=== PATIENT | female | born 1950 | race Caucasian/White ===

== ENCOUNTER 2017-02-06 09:10 | Emergency (ER) | payer OTHER ==
--- NOTE | 2017-02-06 09:47 | ER Document Report ---
ED Respiratory Problem - General Chief Complaint: Breathing Difficulty Stated Complaint: DIFFICULTY BREATHING Time Seen by Provider: 02/06/17 09:28 Notes: The patient is a 66-year-old female, past medical history COPD, CAD status post 3 vessel bypass 4 weeks ago at [facility], [facility], presents with 2 weeks of increasing shortness of breath and cough. She said that she was having the shortness of breath upon discharge from [facility]. She saw her warp hauler, Dr. Langston, and was started on Lasix without much relief of her peripheral edema. She is using her albuterol every 4 hours. In addition, patient noticed swelling of her right neck since last night. She denies fevers, hemoptysis, chest pain, back pain, nausea, vomiting, abdominal pain, difficulty swallowing, dental injury or pain or stridor. TRAVEL OUTSIDE OF THE [place] IN LAST 30 DAYS: No - Related Data Allergies/Adverse Reactions: codeine Adverse Reaction (Verified 02/06/17 09:21) Home Medications: Current Home Medications Aspirin [Aspirin EC] 81 mg PO DAILY 02/06/17 [History] Atorvastatin Calcium [Lipitor 80 mg Tablet] 80 mg PO QHS 02/06/17 [History] Carvedilol 6.25 mg PO BID 02/06/17 [History] Ferrous Sulfate [Feosol 325 mg Tablet] 325 mg PO DAILY 02/06/17 [History] Folic Acid 0.8 mg PO DAILY 02/06/17 [History] Ipratropium/Albuterol Sulfate [Iprat-Albut 0.5-3(2.5) Mg/3 Ml] 3 ml IH PRN PRN 02/06/17 [History] Ondansetron [Ondansetron Odt] 4 mg PO Q8H PRN 02/06/17 [History] Past Medical History - General Information source: Patient - Social History Smoking Status: Unknown if Ever Smoked Family History: Reviewed & Not Pertinent - Past Medical History Cardiac Medical History: Reports: Hx Hypercholesterolemia, Hx Hypertension Pulmonary Medical History: Reports: Hx COPD Past Surgical History: Reports: Hx Cardiac Catheterization - Immunizations Hx Diphtheria, Pertussis, Tetanus Vaccination: No Review of Systems - Review of Systems Notes: REVIEW OF SYSTEMS: CONSTITUTIONAL: -fevers, -chills EENT: -eye pain, -difficulty swallowing, -nasal congestion CARDIOVASCULAR:-chest pain, -syncope. RESPIRATORY: +cough, +SOB GASTROINTESTINAL: -abdominal pain, - nausea, -vomiting, -diarrhea GENITOURINARY: -dysuria, -hematuria MUSCULOSKELETAL: -back pain, +right neck pain SKIN: -rash or skin lesions. HEMATOLOGIC: -easy bruising or bleeding. LYMPHATIC: -swollen, enlarged glands. NEUROLOGICAL: -altered mental status or loss of consciousness, -headache, - neurologic symptoms PSYCHIATRIC: -anxiety, -depression. ALL OTHER SYSTEMS REVIEWED AND NEGATIVE. Physical Exam - Vital signs Vitals: Temp Pulse Resp BP Pulse Ox 97.9 F 88 22 H 152/110 H 98 02/06/17 09:17 02/06/17 09:17 02/06/17 09:17 02/06/17 09:17 02/06/17 09:17 - Notes Notes: PHYSICAL EXAMINATION: GENERAL: Well-appearing, well-nourished and in no acute distress. HEAD: Atraumatic, normocephalic. EYES: Pupils equal round and reactive to light, extraocular movements intact, sclera anicteric, conjunctiva are normal. ENT: nares patent, oropharynx clear without exudates. Moist mucous membranes. NECK: Normal range of motion, supple without lymphadenopathy LUNGS: Pursed lip breathing. Diffuse wheezing. HEART: Regular rate and rhythm without murmurs. ABDOMEN: Soft, nontender, normoactive bowel sounds. No guarding, no rebound. No masses appreciated. EXTREMITIES: Normal range of motion. 1+ pitting edema. No cyanosis. NEUROLOGICAL: Cranial nerves grossly intact. Normal speech, normal gait. Normal sensory and motor exams. PSYCH: Normal mood, normal affect. SKIN: Well-healed mid-sternal surgical scar. Course - Re-evaluation Re-evalutation: Patient with hyperkalemia and acute renal failure. Her creatinine last week was 4 and it is 12.95 today. She is not on dialysis. Her potassium is 6.6. EKG shows paced rhythm, but the patient is throwing intermittent ectopic beats on the monitor. She began to have some nausea and vomiting and Zofran was provided to patient. Provided patient with hyperkalemic treatment. Patient provided with Solu-Medrol and duo nebs with improvement of her wheezing. Ultrasound ordered for evaluation of her acute right neck mass. Patient is protecting her airway and there is no airway compromise. Patient requires inpatient admission for further evaluation and treatment. 02/06/17 11:18 No nephrology coverage at [facility] until 2018. [facility] because she has an appointment with Urology next month. 02/06/17 11:24 [facility] Spoke to transfer center at [facility] since patient had her CABG 1 month ago and awaiting callback. 02/06/17 11:56 Spoke to [facility] and Dr. Vinson has accepted patient ER to ER. Recommends [facility]. Arranging transportation now. 02/06/17 14:49 Transport in ED and patient reevaluated. Her nausea has resolved. At this time, patient stable for transport. - Vital Signs Vital signs: Temp Pulse Resp BP Pulse Ox 97.9 F 88 19 108/93 H 99 02/06/17 09:17 02/06/17 09:17 02/06/17 14:01 02/06/17 14:01 02/06/17 14:01 - Laboratory Result Diagrams: 02/06/17 09:50 02/06/17 09:50 Laboratory results interpreted by me: 02/06/17 02/06/17 02/06/17 09:50 09:50 09:50 RBC 3.24 L Hgb 9.6 L Hct 28.6 L RDW 14.3 H Seg Neutrophils % 79.4 H Lymphocytes % 11.1 L Absolute Neutrophils 8.3 H VBG pH VBG pCO2 VBG HCO3 Potassium 6.6 H* Chloride 108 H Carbon Dioxide 14 L BUN 99 H Creatinine 12.95 H Est GFR ( Amer) 4 L Est GFR (Non-Af Amer) 3 L Alkaline Phosphatase 158 H NT-Pro-B Natriuret Pep 8730 H 02/06/17 10:35 RBC Hgb Hct RDW Seg Neutrophils % Lymphocytes % Absolute Neutrophils VBG pH 7.29 L VBG pCO2 33.6 L VBG HCO3 15.8 L Potassium Chloride Carbon Dioxide BUN Creatinine Est GFR ( Amer) Est GFR (Non-Af Amer) Alkaline Phosphatase NT-Pro-B Natriuret Pep - Diagnostic Test Radiology reviewed: Image reviewed, Reports reviewed - EKG Interpretation by Me Rate: Normal Rhythm: Other - AV-dual paced Critical Care Note - Critical Care Note Total time excluding time spent on procedures (mins): 55 Discharge - Discharge Clinical Impression: Hyperkalemia, JAMES (acute kidney injury), COPD exacerbation, Neck mass Nausea and vomiting Qualifiers: Vomiting type: unspecified Vomiting Intractability: non-intractable Qualified Code(s): R11.2 - Nausea with vomiting, unspecified Condition: Serious Disposition: [place]
[2017-02-06 10:07] LABS: ABSOLUTE BASOPHILS # (AUTO) 0.1 10^3/uL (0.0-0.2); ABSOLUTE EOSINOPHILS # (AUTO) 0.4 10^3/uL (0.0-0.6); ABSOLUTE LYMPHOCYTES (AUTO) 1.2 10^3/uL (0.5-4.7); ABSOLUTE MONOCYTES (AUTO) 0.5 10^3/uL (0.1-1.4); ABSOLUTE NEUT (AUTO) 8.3 10^3/uL (1.7-8.2); BASOPHILS % (AUTO) 0.7 % (0-2); EOSINOPHILS % (AUTO) 3.7 % (0-6); HEMATOCRIT 28.6 % (36.0-47.0); HEMOGLOBIN 9.6 g/dL (12.0-15.5); HGB HCT DIFFERENCE 0.2; LYMPHOCYTES % (AUTO) 11.1 % (13-45); MEAN CORPUSCULAR HEMOGLOBIN 29.6 pg (27.0-33.4); MEAN CORPUSCULAR HGB CONC 33.5 g/dL (32.0-36.0); MEAN CORPUSCULAR VOLUME 88 fl (80-97); MONOCYTES % (AUTO) 5.1 % (3-13); RED BLOOD COUNT 3.24 10^6/uL (3.72-5.28); RED CELL DISTRIBUTION WIDTH 14.3 % (11.5-14.0); SEGMENTED NEUTROPHILS % (AUTO) 79.4 % (42-78); WHITE BLOOD COUNT 10.5 10^3/uL (4.0-10.5)
[2017-02-06] MEDS ORDERED: METHYLPREDNISOLONE INJ 125 MG/2 ML SDV IV ONE (10:08)
[2017-02-06] MEDS ORDERED: IPRATROPIUM/ALBUTEROL 0.5-2.5 MG/3 ML AMPUL NEB ONE (10:08)
--- NOTE | 2017-02-06 10:26 | RADIOLOGY REPORT (SQ) ---
EXAM DESCRIPTION: CHEST SINGLE VIEW COMPLETED DATE/TIME: 02/06/2017 10:16 am REASON FOR STUDY: SOB COMPARISON: 2015. NUMBER OF VIEWS: One view. TECHNIQUE: Single frontal radiographic view of the chest acquired. LIMITATIONS: None. FINDINGS: LUNGS AND PLEURA: Blunting left lateral costophrenic angle suggests a small effusion. The lungs otherwise look relatively clear, however. MEDIASTINUM AND HILAR STRUCTURES: Stable postoperative contours. Uncoiled mildly ectatic aorta. HEART AND VASCULAR STRUCTURES: Stable heart size. Enlarged without overt failure otherwise. BONES: No acute findings. HARDWARE: Left transvenous pacer. Grossly intact sternal wires. OTHER: No other significant finding. IMPRESSION: Cardiac enlargement. Trace left pleural fluid may be present. Otherwise clear lungs wi th stable appearance of the chest. TECHNICAL DOCUMENTATION: JOB ID: [id number] [employer]- All Rights Reserved
[2017-02-06 10:29] LABS: ALANINE AMINOTRANSFERASE 45 U/L (9-52); ALBUMIN 3.7 g/dL (3.5-5.0); ALKALINE PHOSPHATASE 158 U/L (38-126); ASPARTATE AMINO TRANSFERASE 19 U/L (14-36); BILIRUBIN,DIRECT 0.3 mg/dL (0.0-0.4); BILIRUBIN,TOTAL 0.3 mg/dL (0.2-1.3); BLOOD UREA NITROGEN 99 mg/dL (7-20); CALCIUM 9.2 mg/dL (8.4-10.2); CREATINE KINASE 37 U/L (30-135); CREATININE RESULT 12.95 mg/dL (0.52-1.25); GLUCOSE 90 mg/dL (75-110); TOTAL PROTEIN 6.3 g/dL (6.3-8.2)
[2017-02-06 10:36] LABS: ANION GAP 19 (5-19); CARBON DIOXIDE 14 mmol/L (22-30); CHLORIDE 108 mmol/L (98-107); SODIUM 141.3 mmol/L (137-145)
[2017-02-06 10:39] LABS: TROPONIN I 0.02 ng/mL
[2017-02-06 10:42] LABS: POTASSIUM 6.6 mmol/L (3.6-5.0)
[2017-02-06] MEDS ORDERED: ONDANSETRON HCL INJ/PF 4 MG/2 ML SDV IV ONE (10:42)
[2017-02-06] MEDS ORDERED: CALCIUM GLUCONATE 1000 MG/10 ML INJ IV ONE (10:43)
[2017-02-06] MEDS ORDERED: ALBUTEROL SULFATE 0.083% NEB 2.5 MG/3 ML AMPUL NEB ONE (10:43)
[2017-02-06] MEDS ORDERED: FUROSEMIDE INJ/PF 40 MG/4 ML SDV IV ONE (10:43)
[2017-02-06] MEDS ORDERED: DEXTROSE 50%-WATER 25 GM/50 ML DISP.SYRIN IV ONE (10:44)
[2017-02-06] MEDS ORDERED: INSULIN REG, HUMAN 100 UNIT/ML 3 ML VIAL (PYX) IV ONE (10:44)
[2017-02-06 10:47] LABS: VENOUS BLOOD BASE EXCESS -9.9 mmol/L; VENOUS BLOOD HCO3 15.8 mmol/L (20-32); VENOUS BLOOD PCO2 33.6 mmHg (35-63); VENOUS BLOOD PH 7.29 (7.30-7.42)
[2017-02-06 11:28] LABS: ADD ON TESTING BLD IN LAB ACKNOWLEDGE
[2017-02-06 11:38] LABS: LIPASE 165.1 U/L (23-300)
[2017-02-06] MEDS ORDERED: SODIUM POLYSTYRENE SULFONATE 15 GM/60 ML PO ONE (11:48)
--- NOTE | 2017-02-06 13:05 | RADIOLOGY REPORT (SQ) ---
EXAM DESCRIPTION: U/S THYROID/SFT TISS HD NECK COMPLETED DATE/TIME: 02/06/2017 12:54 pm REASON FOR STUDY: right neck swelling, acute COMPARISON: None. TECHNIQUE: Dynamic and static calhoun-scale images acquired of the thyroid gland. Selected additional c olor/power Doppler images recorded. All images stored to PACS. LIMITATIONS: None. FINDINGS: RIGHT LOBE: Normal size, 3.6 cm. Homogeneous echotexture. There is a 6 mm cyst in the mi dportion of the right lobe. LEFT LOBE: Normal size, 3.6 cm. Homogeneous echotexture. No cystic or solid masses. ISTHMUS: Normal size, 3.7 mm Homogeneous echotexture. No cystic or solid masses. OTHER: There is a masslike area soft tissue swelling in the right side of the neck showing increased vascularity. This measures 4.1 x 4.1 x 1.8 cm. IMPRESSION: Normal thyroid. Nonspecific masslike area of soft tissue swelling the right side of the neck. It is possible this could represent adenopathy. It does not have an appearance suggestive of a hematoma. TECHNICAL DOCUMENTATION: JOB ID: [id number]- All Rights Reserved
--- NOTE | 2017-02-06 13:26 | EKG REPORT ---
SEVERITY:- ABNORMAL ECG - ATRIAL-VENTRICULAR DUAL-PACED COMPLEXES : Confirmed by: Jake Johnson MD 06-Feb-2017 13:25:31
[2017-02-06 14:36] VITALS: BP 108/93
== END 2017-02-06 15:01 | disposition short-term general hospital (02) ==
LOC: ER 09:10
DX: E87.5 Hyperkalemia (principal); J44.1 Chronic obstructive pulmonary disease with (acute) exacerbation; R22.1 Localized swelling, mass and lump, neck; N17.9 Acute kidney failure, unspecified; R11.2 Nausea with vomiting, unspecified; I25.10 Atherosclerotic heart disease of native coronary artery without angina pectoris; I10 Essential (primary) hypertension; E78.00 Pure hypercholesterolemia, unspecified; Z88.6 Allergy status to analgesic agent; Z95.1 Presence of aortocoronary bypass graft; Z79.82 Long term (current) use of aspirin
CPT/HCPCS: 93005; 94640 ×2; 99291; 96375; 96365; 36415; 82550; 83690; 85025; 80053; 84484; 82803; 83880; 71010; 76536; 93010; J0610; J3490; J1940; J2930; J1815; J2405; J7620

== ENCOUNTER → 2017-06-13 | Outpatient (CLI) | payer OTHER ==
--- NOTE | 2017-06-13 12:51 | RADIOLOGY REPORT (SQ) ---
EXAM DESCRIPTION: CT CHEST WITHOUT COMPLETED DATE/TIME: 06/13/2017 12:27 pm REASON FOR STUDY: BLADDER NECK CA C67.5 MALIGNANT NEOPLASM OF BLADDER NECK COMPARISON: CT 03/10/2016 TECHNIQUE: CT scan performed of the chest without intravenous contrast. Images reviewed with lung, soft tissue and bone windows. Reconstructed coronal and sagittal MPR images reviewed. All images st ored on PACS. All CT scanners at this facility use dose modulation, iterative reconstruction, and/or weight based d osing when appropriate to reduce radiation dose to as low as reasonably achievable (ALARA). [facility]: Dose Right [facility]: CareDose [facility]: Dose Right [facility]: Teradose 4D [facility]: [employer] RADIATION DOSE: mGy. LIMITATIONS: No technical limitations. FINDINGS: LUNGS AND PLEURA: There is a 3 mm nodule in the right lung on image 49. There is pleural/ parenchymal scarring in the posterior costophrenic sulci. HILAR AND MEDIASTINAL STRUCTURES: No identified masses or abnormal nodes. No obvious aneurysm. HEART AND VASCULAR STRUCTURES: No aneurysm. No pericardial effusion. Dense coronary atherosclerosis . Aortic atherosclerosis. UPPER ABDOMEN: See separate report of the CT of the abdomen. THYROID AND OTHER SOFT TISSUES: No masses. No adenopathy. BONES: Multiple sclerotic lesions are present in the vertebrae, ribs, scapulae HARDWARE: Pacemaker/defibrillator. Sternotomy wires. OTHER: No other significant findings. IMPRESSION: 1. Nonspecific small pulmonary nodule as described. 2. Extensive atherosclerosis. 3. Extensive osseous metastases. TECHNICAL DOCUMENTATION: JOB ID: [id number] Quality ID # [id number]: Final reports with documentation of one or more dose reduction techniques (e.g., Au tomated exposure control, adjustment of the mA and/or kV according to patient size, use of iterative reconstruction technique) 2010 [employer]- All Rights Reserved Reading location - IP/workstation name: [email or web address]
--- NOTE | 2017-06-13 13:02 | RADIOLOGY REPORT (SQ) ---
EXAM DESCRIPTION: CT ABD/PELVIS NO ORAL OR IV COMPLETED DATE/TIME: 06/13/2017 12:27 pm REASON FOR STUDY: BLADDER NECK CA C67.5 MALIGNANT NEOPLASM OF BLADDER NECK COMPARISON: None. TECHNIQUE: CT scan of the abdomen and pelvis performed without intravenous or oral contrast. Images reviewed with lung, soft tissue, and bone windows. Reconstructed coronal and sagittal MPR images revi ewed. All images stored on PACS. All CT scanners at this facility use dose modulation, iterative reconstruction, and/or weight based d osing when appropriate to reduce radiation dose to as low as reasonably achievable (ALARA). [facility]: Dose Right [facility]: CareDose [facility]: Dose Right [facility]: Teradose 4D [facility]: [employer] RADIATION DOSE: CT Rad equipment meets quality standard of care and radiation dose reduction techniq ues were employed. CTDIvol: 4.6 - 6.0 mGy. DLP: 457 mGy-cm.mGy. LIMITATIONS: None. FINDINGS: LOWER CHEST: See separate report of the CT of the chest. NON-CONTRASTED LIVER, SPLEEN, ADRENALS: Evaluation limited by lack of IV contrast. No identified sign ificant masses. PANCREAS: No masses. No peripancreatic inflammatory changes. GALLBLADDER: No identified stones by CT criteria. No inflammatory changes to suggest cholecystitis. RIGHT KIDNEY AND URETER: No suspicious masses. There is hydronephrosis/hydroureter. A ureteral sten t is present. There is perinephric stranding. LEFT KIDNEY AND URETER: No suspicious mass is present. There is moderate hydronephrosis. A stent is present. There is mild perinephric stranding. AORTA AND RETROPERITONEUM: No aneurysm. Atherosclerosis is present. BOWEL AND PERITONEAL CAVITY: Numerous descending and sigmoid colon diverticula are seen with no acute inflammatory changes. APPENDIX: Normal. PELVIS, BLADDER, AND ABDOMINAL WALL:Uterus is absent. Ureteral stents terminate in the nondistended bladder. There is bladder wall thickening. BONES: Numerous osseous metastases are present. OTHER: No other significant finding. IMPRESSION: 1. Bilateral hydronephrosis, worse on the right, with bilateral ureteral stents 2. There is significant thickening of the bladder wall. 3. Diverticulosis coli. 4. Extensive osseous metastases are present. COMMENT: Findings were discussed with Dr. Rose at 1256 hours on this date. Quality ID # [id number]: Final reports with documentation of one or more dose reduction techniques (e.g., Au tomated exposure control, adjustment of the mA and/or kV according to patient size, use of iterative reconstruction technique) TECHNICAL DOCUMENTATION: JOB ID: [id number] [employer]- All Rights Reserved Reading location - IP/workstation name: [email or web address]
== END ==
LOC: RAD 12:00
PROVIDERS: ATTEND Internal Medicine
DX: C67.5 Malignant neoplasm of bladder neck (principal); C79.51 Secondary malignant neoplasm of bone; K57.30 Diverticulosis of large intestine without perforation or abscess without bleeding; R91.1 Solitary pulmonary nodule
CPT/HCPCS: 71250; 74176

== ENCOUNTER 2017-06-19 11:19 | Day surgery (SDC) | payer OTHER ==
[~2017-06-19 11:19] MED LIST: ACETAMINOPHEN 325 MG TABLET PO PRN; CEFAZOLIN 1 GM/D5W RTU 1 GM/50 ML RTUPB IV PRN
[2017-06-19 12:28] LABS: HEMATOCRIT 28.5 % (36.0-47.0); HEMOGLOBIN 9.6 g/dL (12.0-15.5); MEAN CORPUSCULAR HGB CONC 33.7 g/dL (32.0-36.0); MEAN CORPUSCULAR VOLUME 83 fl (80-97); PLATELET COUNT 276 10^3/uL (150-450); RED BLOOD COUNT 3.43 10^6/uL (3.72-5.28); WHITE BLOOD COUNT 9.7 10^3/uL (4.0-10.5)
[2017-06-19] MEDS ORDERED: PROPOFOL INJ 200 MG/20 ML VIAL IV ONE (13:07)
[2017-06-19] MEDS ORDERED: MIDAZOLAM 2 MG/2 ML INJ ONE (13:07)
[2017-06-19] MEDS ORDERED: FENTANYL CITRATE INJ/PF 100 MCG/2 ML AMPUL ONE (13:07)
[2017-06-19] MEDS ORDERED: LIDOCAINE 1%/EPINEPHRINE INJ 20 ML VIAL ONE (13:11)
--- NOTE | 2017-06-19 13:31 | RADIOLOGY REPORT (SQ) ---
EXAM DESCRIPTION: CHEST SINGLE VIEW COMPLETED DATE/TIME: 06/19/2017 12:58 pm REASON FOR STUDY: PREOP COMPARISON: AP chest 02/06/2017 CT chest 06/13/2017 EXAM PARAMETERS: NUMBER OF VIEWS: One view. TECHNIQUE: Single frontal radiographic view of the chest acquired. RADIATION DOSE: NA LIMITATIONS: None. FINDINGS: LUNGS AND PLEURA: No opacities, masses or pneumothorax. No pleural effusion. MEDIASTINUM AND HILAR STRUCTURES: No masses. Contour normal. HEART AND VASCULAR STRUCTURES: Marked cardiomegaly, stable. Old sternotomy for CABG. BONES: Multiple sclerotic osseous lesions throughout the spine and ribs seen on CT 06/13/2017 are not w ell seen by plain film. HARDWARE: Left-sided pacemaker/defibrillator OTHER: No other significant finding. IMPRESSION: No acute infiltrates Marked cardiomegaly Bony metastatic disease seen on CT chest 06/13/2017 is difficult to visualize by plain film. TECHNICAL DOCUMENTATION: JOB ID: [id number] [employer]- All Rights Reserved Reading location - IP/workstation name: [email or web address]
[2017-06-19] MEDS ORDERED: DIPHENHYDRAMINE HCL 50 MG/ML VIAL IV PRN (14:03)
[2017-06-19] MEDS ORDERED: FENTANYL CITRATE INJ/PF 100 MCG/2 ML AMPUL IV PRN ×3 (14:03)
[2017-06-19] MEDS ORDERED: PROMETHAZINE HCL INJ 25 MG/1 ML VIAL IV PRN (14:03)
--- NOTE | 2017-06-19 14:22 | Discharge Summary ---
Discharge Summary (SDC) - Discharge Final Diagnosis: Urothelial carcinoma Date of Surgery: 06/19/17 Discharge Date: 06/19/17 Condition: Good Treatment or Instructions: May use port; shower in 48 hours; take my: Return to [place] [facility] in 1 -2 weeks for wound check. Referrals: TONEY SANTOS MD [Primary Care Provider] - Discharge Diet: As Tolerated Discharge Activity: Activity As Tolerated Home Care Assistance: None Needed Report the Following to Your Physician Immediately: Shortness of Breath, Increase in Pain, Fever over 101 Degrees
--- NOTE | 2017-06-19 14:28 | Operative Report ---
Operative Report DATE OF SURGERY: 06/19/17 PREOPERATIVE DIAGNOSIS: Urothelial carcinoma POSTOPERATIVE DIAGNOSIS: Same OPERATION: 1. Focused ultrasound of the neck to ultrasound directed insertion of the single lumen [id number] catheter into right internal jugular vein. 2. Placement of port chamber and right subclavian position. 3. Interpretation of intraoperative fluoroscopy SURGEON: GLORIA CASTANO ANESTHESIA: LMAC TISSUE REMOVED OR ALTERED: none COMPLICATIONS: none ESTIMATED BLOOD LOSS: scant INTRAOPERATIVE FINDINGS: see below PROCEDURE: Patient was seen in the preop holding area then taken to the main operating room where LMAC anesthesia was induced. Arms were tucked at her side, head rotated to the left, and right neck subclavian area was prepped and draped in sterile fashion. Surgical plan and surgical timeout were conducted. The skin was anesthetized with 1% plain lidocaine over the right internal jugular vein. Using the micro needle and wire under fluoroscopic guidance and the ultrasound direction, a micro needle and wire were threaded into the right internal jugular vein Suitable site for placement of the port was chosen in the right subclavian position. The skin was anesthetized with 1% plain lidocaine. Proximally 3 cm incision was made with a knife subcutaneous tissue divided with blunt dissection and use of bipolar. Of note the patient's defibrillator feature was discontinued with the magnet prior to the initiation of the operation. She was not pacer dependent during the case. The pocket was developed large enough to accommodate a single-chamber port. The catheter was then trimmed the appropriate length, tunneled between the 2 incisions, attached to the port with the plastic ring securing the catheter to the port. Under fluoroscopic guidance the micro wire was switched over to a conventional guidewire using the micro introducer sheath. We then threaded a 9 Italian dilator and sheath over the guidewire and the dilator and wire removed. The single lumen catheter was threaded into the right internal jugular vein and the strip away sheath removed uneventfully. Under fluoroscopic guidance, we could see the tip of the catheter in the area of the right atrium. There was no kinking of the catheter at the level of the neck.. The catheter was aspirated and flushed satisfactorily with dilute heparin saline. There was no evidence of hematoma. We felt the operation was complete. Wounds closed with 3-0 Vicryl benzoin Steri-Strips. She tolerated the procedure well, and taken recovery room in stable condition.
[2017-06-19 16:06] VITALS: BP 157/92
--- NOTE | 2017-06-19 16:51 | RADIOLOGY REPORT (SQ) ---
EXAM DESCRIPTION: FLUORO/CV PLACEMENT COMPLETED DATE/TIME: 06/19/2017 3:04 pm REASON FOR STUDY: RT PORTACATH C67.5 MALIGNANT NEOPLASM OF BLADDER NECK COMPARISON: None. FLUOROSCOPY TIME: 0.1 minute 7 images saved to PACS. TECHNIQUE: Intra-operative images acquired during surgical procedure to evaluate progress. NUMBER OF IMAGES: 7 LIMITATIONS: None. FINDINGS: Selected images from right-sided port placement. Tip overlies the SVC. IMPRESSION: IMAGE(S) OBTAINED DURING PROCEDURE. COMMENT: Quality ID [id number]: Final reports for procedures using fluoroscopy that document radiation exp osure indices, or exposure time and number of fluorographic images (if radiation exposure indices are not available) Please consult full operative report of the attending physician for description of the procedure. TECHNICAL DOCUMENTATION: JOB ID: [id number] [employer]- All Rights Reserved Reading location - IP/workstation name: [email or web address]
== END 2017-06-19 16:05 | disposition home or self-care (01) ==
LOC: OROUT 11:19
PROVIDERS: ATTEND Surgery
PROC: 05HM33Z Insertion of Infusion Device into Right Internal Jugular Vein, Percutaneous Approach (ICD-10-PCS; principal; 2017-06-19 13:30)
DX: C67.5 Malignant neoplasm of bladder neck (principal); I10 Essential (primary) hypertension; J44.9 Chronic obstructive pulmonary disease, unspecified; I25.10 Atherosclerotic heart disease of native coronary artery without angina pectoris; G47.33 Obstructive sleep apnea (adult) (pediatric); Z87.891 Personal history of nicotine dependence; Z79.51 Long term (current) use of inhaled steroids; Z79.82 Long term (current) use of aspirin; Z88.5 Allergy status to narcotic agent; Z88.3 Allergy status to other anti-infective agents
CPT/HCPCS: 36561; 36415; 84132; 85027; 71045; 77001; C1752; C1788; J2250; J0690; J3010; J3490; J2704; J1642; 532

== ENCOUNTER 2017-06-29 14:36 | Emergency (ER) | payer OTHER ==
[~2017-06-29 14:36] MED LIST changes: -ACETAMINOPHEN 325 MG TABLET PO PRN; -CEFAZOLIN 1 GM/D5W RTU 1 GM/50 ML RTUPB IV PRN; +SUCCINYLCHOLINE CHLORIDE INJ 200 MG/10 ML VIAL ONE
--- NOTE | 2017-06-29 16:33 | ER Document Report ---
ED Medical Screen (RME) - General Chief Complaint: Abnormal Lab Results Stated Complaint: ABNORMAL LABS Time Seen by Provider: 06/29/17 16:31 Notes: Patient of history of stage IV bladder cancer diagnosed late last year oncologist is Dr. tammie Boone. She had chemotherapy 3 weeks ago today and was scheduled in his office to have another round of chemotherapy today. However, after checking blood work she was sent to the emergency department for abnormal labs. She denies any recent fevers illnesses chills cough congestion or chest pain or shortness of breath. She denies any dysuria. Her primary care physician is Dr. Bella. Please see patient referral form in chart. I have greeted and performed a rapid initial assessment of this patient. A comprehensive ED assessment and evaluation of the patient, analysis of test results and completion of the medical decision making process will be conducted by additional ED providers. PHYSICAL EXAMINATION: GENERAL: Well-appearing, well-nourished and in no acute distress. HEAD: Atraumatic, normocephalic. EYES: Pupils equal round extraocular movements intact, conjunctiva are normal. ENT: Nares patent NECK: Normal range of motion LUNGS: No respiratory distress Musculoskeletal: Normal range of motion NEUROLOGICAL: Normal speech, normal gait. PSYCH: Normal mood, normal affect. SKIN: Warm, Dry, normal turgor, no rashes or lesions noted. TRAVEL OUTSIDE OF THE [place] IN LAST 30 DAYS: No - Related Data Allergies/Adverse Reactions: codeine Allergy (Severe, Verified 06/16/17 15:47) N AND V vancomycin Allergy (Severe, Verified 06/16/17 15:47) Anaphylaxis hydrocodone Allergy (Verified 06/29/17 16:35) VOMITING oxycodone Allergy (Verified 06/29/17 16:35) VOMITING Past Medical History - Past Medical History Cardiac Medical History: Reports: Hx Hypercholesterolemia, Hx Hypertension - ON MEDS,TRIPLE BYPASS Denies: Hx Coronary Artery Disease, Hx Heart Attack Pulmonary Medical History: Reports: Hx COPD Denies: Hx Asthma, Hx Bronchitis, Hx Pneumonia Neurological Medical History: Denies: Hx Cerebrovascular Accident, Hx Seizures Renal/ Medical History: Denies: Hx Peritoneal Dialysis Musculoskeltal Medical History: Reports Hx Arthritis Past Surgical History: Reports: Hx Cardiac Catheterization, Hx Cardiac Surgery - CABG x3 01/2017 - Immunizations Hx Diphtheria, Pertussis, Tetanus Vaccination: No History of Influenza Vaccine for 12/2016 - 05/2017 Season: No Physical Exam - Vital signs Vitals: Temp Pulse Resp BP Pulse Ox 97.9 F 85 15 153/80 H 96 06/29/17 15:02 06/29/17 15:02 06/29/17 15:02 06/29/17 15:02 06/29/17 15:02 Course - Vital Signs Vital signs: Temp Pulse Resp BP Pulse Ox 97.9 F 85 15 153/80 H 96 06/29/17 15:02 06/29/17 15:02 06/29/17 15:02 06/29/17 15:02 06/29/17 15:02
[2017-06-29] MEDS ORDERED: NORMAL SALINE 1000 ML 1,000 ML IV ONE ×2 (16:47→19:24)
[2017-06-29 17:34] LABS: ABSOLUTE BASOPHILS # (AUTO) 0.1 10^3/uL (0.0-0.2); ABSOLUTE EOSINOPHILS # (AUTO) 0.2 10^3/uL (0.0-0.6); ABSOLUTE LYMPHOCYTES (AUTO) 1.1 10^3/uL (0.5-4.7); ABSOLUTE MONOCYTES (AUTO) 0.7 10^3/uL (0.1-1.4); ABSOLUTE NEUT (AUTO) 8.2 10^3/uL (1.7-8.2); BASOPHILS % (AUTO) 0.8 % (0-2); EOSINOPHILS % (AUTO) 1.6 % (0-6); HEMATOCRIT 24.9 % (36.0-47.0); HEMOGLOBIN 8.3 g/dL (12.0-15.5); LYMPHOCYTES % (AUTO) 10.4 % (13-45); MEAN CORPUSCULAR HEMOGLOBIN 27.8 pg (27.0-33.4); MEAN CORPUSCULAR HGB CONC 33.3 g/dL (32.0-36.0); MEAN CORPUSCULAR VOLUME 83 fl (80-97); MONOCYTES % (AUTO) 6.5 % (3-13); PLATELET COUNT 270 10^3/uL (150-450); RED BLOOD COUNT 2.99 10^6/uL (3.72-5.28); RED CELL DISTRIBUTION WIDTH 16.5 % (11.5-14.0); SEGMENTED NEUTROPHILS % (AUTO) 80.7 % (42-78); TOTAL CELLS COUNTED % (AUTO) 100 %; WHITE BLOOD COUNT 10.1 10^3/uL (4.0-10.5)
[2017-06-29 17:48] LABS: APPEARANCE,URINE SLIGHTLY-CLOUDY; BILIRUBIN,URINE NEGATIVE (NEGATIVE); COLOR,URINE STRAW; GLUCOSE, URINE NEGATIVE (NEGATIVE); KETONES,URINE NEGATIVE (NEGATIVE); LEUKOCYTE ESTERASE,URINE LARGE (NEGATIVE); NITRITE,URINE NEGATIVE (NEGATIVE); PROTEIN,URINE 100 mg/dL (NEGATIVE); URINE SPECIFIC GRAVITY 1.006; UROBILINOGEN,URINE NEGATIVE mg/dL (<2.0)
[2017-06-29 17:56] LABS: ALANINE AMINOTRANSFERASE 22 U/L (9-52); ALBUMIN 3.7 g/dL (3.5-5.0); ALKALINE PHOSPHATASE 397 U/L (38-126); ANION GAP 15 (5-19); ASPARTATE AMINO TRANSFERASE 37 U/L (14-36); BILIRUBIN,DIRECT 0.3 mg/dL (0.0-0.4); BILIRUBIN,TOTAL 0.3 mg/dL (0.2-1.3); BLOOD UREA NITROGEN 34 mg/dL (7-20); CARBON DIOXIDE 15 mmol/L (22-30); CHLORIDE 113 mmol/L (98-107); GLUCOSE 105 mg/dL (75-110); POTASSIUM 5.2 mmol/L (3.6-5.0); SODIUM 143.1 mmol/L (137-145); TOTAL PROTEIN 6.2 g/dL (6.3-8.2)
[2017-06-29 18:15] LABS: CALCIUM 5.7 mg/dL (8.4-10.2)
[2017-06-29] MEDS ORDERED: CALCIUM CHLORIDE 10% PF/INJ 1000 MG/10 ML SDV IV PRN (18:20)
[2017-06-29] MEDS ORDERED: MAGNESIUM SULFATE/D5W 1 GM/100 ML RTUPB IV SCH ×2 (18:30→20:00)
[2017-06-29] MEDS ORDERED: IPRATROPIUM/ALBUTEROL 0.5-2.5 MG/3 ML AMPUL NEB ONE ×2 (18:50→19:38)
[2017-06-29] MEDS ORDERED: PROPOFOL 100 ML IV ONE (18:55)
[2017-06-29] MEDS ORDERED: ETOMIDATE INJ/PF 20 MG/10 ML SDV IV ONE ×2 (18:55→19:08)
[2017-06-29] MEDS ORDERED: SUCCINYLCHOLINE CHLORIDE INJ 200 MG/10 ML VIAL IV ONE (19:08)
--- NOTE | 2017-06-29 19:26 | ER Document Report ---
ED General - General Chief Complaint: Abnormal Lab Results Stated Complaint: ABNORMAL LABS Time Seen by Provider: 06/29/17 16:31 Mode of Arrival: Stretcher Information source: Patient TRAVEL OUTSIDE OF THE [place] IN LAST 30 DAYS: No - HPI Patient complains to provider of: Difficulty breathing, abnormal labs Onset: This afternoon Onset/Duration: Sudden Quality of pain: Achy Severity: Moderate Pain Level: 3 Associated symptoms: Shortness of breath Notes: Patient is a 66-year-old female with a history of bladder cancer who was sent to the emergency room by her oncologist for abnormal labs with a hemoglobin of 8 , and bicarb of 15, she recently had bilateral bladder obstruction with stents placed on Monday, I was called to the room by nursing staff requesting a physician emergently as patient was in respiratory distress, she stated she could not breathe, could not take in any air, was tripoding and stated she was going to pass out, vital signs showed tachycardia and hypoxia, patient was emergently intubated - Related Data Allergies/Adverse Reactions: codeine Allergy (Severe, Verified 06/16/17 15:47) N AND V vancomycin Allergy (Severe, Verified 06/16/17 15:47) Anaphylaxis hydrocodone Allergy (Verified 06/29/17 16:35) VOMITING oxycodone Allergy (Verified 06/29/17 16:35) VOMITING Past Medical History - General Information source: Patient - Social History Smoking Status: Former Smoker Chew tobacco use (# tins/day): No Frequency of alcohol use: None Drug Abuse: None Family History: Reviewed & Not Pertinent Patient has suicidal ideation: No Patient has homicidal ideation: No - Past Medical History Cardiac Medical History: Reports: Hx Hypercholesterolemia, Hx Hypertension - ON MEDS,TRIPLE BYPASS Denies: Hx Coronary Artery Disease, Hx Heart Attack Pulmonary Medical History: Reports: Hx COPD Denies: Hx Asthma, Hx Bronchitis, Hx Pneumonia Neurological Medical History: Denies: Hx Cerebrovascular Accident, Hx Seizures Renal/ Medical History: Denies: Hx Peritoneal Dialysis Musculoskeltal Medical History: Reports Hx Arthritis Past Surgical History: Reports: Hx Cardiac Catheterization, Hx Cardiac Surgery - CABG x3 01/2017, Hx Genitourinary Surgery - Bilat ureteral stents, Hx Hysterectomy - Immunizations Hx Diphtheria, Pertussis, Tetanus Vaccination: No Review of Systems - Review of Systems Constitutional: No symptoms reported EENT: No symptoms reported Cardiovascular: No symptoms reported Respiratory: See HPI Gastrointestinal: Nausea, Vomiting Genitourinary: No symptoms reported Female Genitourinary: No symptoms reported Musculoskeletal: No symptoms reported Skin: No symptoms reported Hematologic/Lymphatic: No symptoms reported Neurological/Psychological: No symptoms reported -: Yes All other systems reviewed and negative Physical Exam - Vital signs Vitals: Temp Pulse Resp BP Pulse Ox 97.9 F 85 15 153/80 H 96 06/29/17 15:02 06/29/17 15:02 06/29/17 15:02 06/29/17 15:02 06/29/17 15:02 Interpretation: Hypertensive, Tachycardic, Hypoxic - General In distress: Severe - HEENT Head: Normocephalic, Atraumatic Eyes: Normal Cornea: Normal Extraocular movements intact: Yes Eyelashes: Normal Pupils: PERRL Mucous membranes: Dry Pharynx: Normal Neck: Normal - Respiratory Respiratory status: Respiratory distress, Labored, Pursed lip breathing, Retractions, Tachypnea, Tripod position Chest status: Nontender Breath sounds: Decreased air movement, Wheezing Chest palpation: Other - Port-A-Cath present in right anterior chest wall - Cardiovascular Rhythm: Regular, Tachycardia Heart sounds: Normal auscultation - Abdominal Inspection: Normal - Back Back: Normal - Extremities General upper extremity: Normal inspection General lower extremity: Normal inspection - Neurological Orientation: AAOx4 [place] Coma Scale Eye Opening: Spontaneous Meggan Coma Scale Verbal: Oriented [place] Coma Scale Motor: Obeys Commands [place] Coma Scale Total: 15 - Skin Skin Temperature: Cool Skin Moisture: Diaphoretic Skin Color: Pale Course - Re-evaluation Re-evalutation: 06/30/17 00:06 Patient has remained stable on sedation with intubation, discussed with director industrial at [facility] who graciously accepts for transfer, and [place] flight crew in the department to transport patient at this time, patient remained stable for transport - Vital Signs Vital signs: Temp Pulse Resp BP Pulse Ox 97.9 F 82 23 H 129/70 H 100 06/29/17 15:02 06/29/17 21:18 06/29/17 23:40 06/29/17 23:40 06/29/17 23:57 - Laboratory Result Diagrams: 06/29/17 17:05 06/29/17 17:05 Laboratory results interpreted by me: 06/29/17 06/29/1718 16:55 17:05 17:05 RBC 2.99 L Hgb 8.3 L Hct 24.9 L RDW 16.5 H Seg Neutrophils % 80.7 H Lymphocytes % 10.4 L Carbonic Acid ABG pH ABG pCO2 ABG pO2 ABG HCO3 ABG Total CO2 ABG O2 Saturation VBG pH VBG pCO2 VBG HCO3 Potassium 5.2 H Chloride 113 H Carbon Dioxide 15 L BUN 34 H Creatinine 3.97 H Est GFR ( Amer) 14 L Est GFR (Non-Af Amer) 11 L Calcium 5.7 L* Magnesium 1.5 L AST 37 H Alkaline Phosphatase 397 H NT-Pro-B Natriuret Pep Total Protein 6.2 L Urine Protein 100 H Urine Blood MODERATE H Ur Leukocyte Esterase LARGE H 06/29/17 06/29/17 06/30/17 19:22 19:22 00:44 RBC Hgb Hct RDW Seg Neutrophils % Lymphocytes % Carbonic Acid 1.00 L ABG pH 7.32 L ABG pCO2 33.3 L ABG pO2 301.5 H ABG HCO3 16.7 L ABG Total CO2 17.7 L ABG O2 Saturation 99.7 H VBG pH 6.90 L* VBG pCO2 74.0 H* VBG HCO3 14.2 L Potassium Chloride Carbon Dioxide BUN Creatinine Est GFR ( Amer) Est GFR (Non-Af Amer) Calcium Magnesium AST Alkaline Phosphatase NT-Pro-B Natriuret Pep 91301 H Total Protein Urine Protein Urine Blood Ur Leukocyte Esterase - Diagnostic Test Radiology reviewed: Image reviewed, Reports reviewed Procedures - Intubation Nasotracheal Time of Intubation: 19:00 Airway evaluation: Normal anatomy Mallampati Classification: Class 3 Medications: Etomidate, Succinylcholine Intubation method: Orotracheal Blade type: Tamir Blade size: 3 ETT size: 3.0 ETT secured at: Lips ETT secured at (cm): 20 Breath Sounds after Intubation: Equal End tidal CO2 confirmed: Yes Post Intubation Xray: Yes Intubation Complications: No complications Critical Care Note - Critical Care Note Total time excluding time spent on procedures (mins): 120 Comments: Patient in respiratory distress with multiple electrolyte abnormalities, and evidence of flash pulmonary edema, requiring intubation, close observation and transfer to tertiary care center Discharge - Discharge Condition: Critical Disposition: [place] Referrals: ELISABETH DORADO MD [Primary Care Provider] - Follow up as needed
--- NOTE | 2017-06-29 19:29 | RADIOLOGY REPORT (SQ) ---
EXAM DESCRIPTION: CHEST SINGLE VIEW COMPLETED DATE/TIME: 06/29/2017 7:19 pm REASON FOR STUDY: intubation COMPARISON: 06/19/2017 EXAM PARAMETERS: NUMBER OF VIEWS: One view. TECHNIQUE: Single frontal radiographic view of the chest acquired. RADIATION DOSE: NA LIMITATIONS: None. FINDINGS: LUNGS AND PLEURA: Bilateral interstitial edema is suggested. There is increased opacifica tion in the left base. MEDIASTINUM AND HILAR STRUCTURES: No masses. Contour normal. HEART AND VASCULAR STRUCTURES: Cardiomegaly. Mild pulmonary edema. BONES: No acute findings. HARDWARE: An injection port is present on the right. An NG tube extends the stomach. An endotrachea l tube has its tip 4 cm above the cristiano. Sternotomy wires. Graft markers. Pacemaker. OTHER: No other significant finding. IMPRESSION: Cardiomegaly with pulmonary edema. Catheters and tubes as described. A left lower lobe pneumonia cannot be excluded. TECHNICAL DOCUMENTATION: JOB ID: [id number] [employer]- All Rights Reserved Reading location - IP/workstation name: [email or web address]
[2017-06-29 19:37] LABS: VENOUS BLOOD BASE EXCESS -19.8 mmol/L; VENOUS BLOOD HCO3 14.2 mmol/L (20-32)
[2017-06-29] MEDS ORDERED: ALBUTEROL SULFATE 0.083% NEB 2.5 MG/3 ML AMPUL NEB ONE (19:37)
[2017-06-29 19:39] LABS: VENOUS BLOOD PH 6.9 (7.30-7.42)
[2017-06-29] MEDS ORDERED: CALCIUM GLUCONATE 1000 MG/10 ML INJ IV ONE (19:41)
[2017-06-29] MEDS ORDERED: DEXTROSE 5%-WATER 1000 ML 1,000 ML with SODIUM BICARBONATE 100 MEQ IV PRN ×2 (19:42)
[2017-06-29] MEDS ORDERED: CEFTRIAXONE INJ 1000 MG VIAL IV ONE (20:04)
[2017-06-29 20:06] LABS: CREATINE KINASE MB 0.83 ng/mL (<4.55); TROPONIN I 0.021 ng/mL
[2017-06-29] MEDS ORDERED: LORAZEPAM INJ 2 MG/1 ML VIAL IV ONE (20:08)
[2017-06-29] MEDS ORDERED: PROPOFOL 100 ML IV PRN (20:20)
--- NOTE | 2017-06-29 22:16 | RADIOLOGY REPORT (SQ) ---
EXAM DESCRIPTION: NM LUNG PERFUSION SCAN COMPLETED DATE/TIME: 06/29/2017 9:51 pm REASON FOR STUDY: db COMPARISON: None. RADIONUCLIDE AND DOSE: 5 millicuries TC-99m MAA The route of agent administration: Intravenous TECHNIQUE: Eight views of the lungs acquired following injection of MAA. LIMITATIONS: None. FINDINGS: PERFUSION: Perfusion images with normal homogenous activity and no wedge-shaped or segment al defects. OTHER: No other significant finding. IMPRESSION: NORMAL PERFUSION LUNG SCAN. TECHNICAL DOCUMENTATION: JOB ID: [id number] [employer]- All Rights Reserved Reading location - IP/workstation name: [email or web address]
[2017-06-29] MEDS ORDERED: SODIUM BICARBONATE 8.4% INJ 50 MEQ/50 ML DISP.SYRIN ONE (22:30)
--- NOTE | 2017-06-29 23:25 | EKG REPORT ---
SEVERITY:- ABNORMAL ECG - VENTRICULAR-PACED RHYTHM : Confirmed by: Birgit Parnell 29-Jun-2017 23:23:59
[2017-06-29 23:47] VITALS: BP 129/70
[2017-06-30 00:47] LABS: ARTERIAL BLOOD BASE EXCESS -8.7 mmol/L; ARTERIAL BLOOD FIO2 100%; ARTERIAL BLOOD HCO3 16.7 mmol/L (20-26); ARTERIAL BLOOD O2 SATURATION 99.7 % (94-98); ARTERIAL BLOOD PCO2 33.3 mmHg (35-45); ARTERIAL BLOOD PH 7.32 (7.35-7.45); ARTERIAL BLOOD PO2 301.5 mmHg (80-100); ARTERIAL BLOOD TOTAL CO2 17.7 mmol/L (21-25)
== END 2017-06-30 00:45 | disposition short-term general hospital (02) ==
LOC: ER 14:36
PROC: 0BH17EZ Insertion of Endotracheal Airway into Trachea, Via Natural or Artificial Opening (ICD-10-PCS; principal; 2017-06-29)
DX: J81.0 Acute pulmonary edema (principal); J96.90 Respiratory failure, unspecified, unspecified whether with hypoxia or hypercapnia; N17.9 Acute kidney failure, unspecified; N13.9 Obstructive and reflux uropathy, unspecified; E78.00 Pure hypercholesterolemia, unspecified; I10 Essential (primary) hypertension; Z85.51 Personal history of malignant neoplasm of bladder; Z88.6 Allergy status to analgesic agent; Z88.3 Allergy status to other anti-infective agents; Z87.891 Personal history of nicotine dependence; Z95.1 Presence of aortocoronary bypass graft; Z90.710 Acquired absence of both cervix and uterus
CPT/HCPCS: 93005; 36591; 99291; 99292; 51702; 86900; 86901; 36415; 87040; 82553; 86850; 82803 ×2; 82550; 83735; 85025; 82272; 80053; 81001; 84484; 83880; 71045; 78580; 93010; 31500; A9540; J0610; J2704; J2060; J3475; J3490; J0330; J0696; J7060; J7030; J7620; Q9969

== ENCOUNTER 2017-08-01 12:01 | Outpatient (CLI) | payer OTHER ==
[2017-08-01] MEDS ORDERED: CALCIUM GLUCONATE 1000 MG/10 ML INJ IV PRN (12:59)
== END 2017-08-01 17:45 | disposition home or self-care (01) ==
LOC: II 12:01 → 3S 12:06 → II 17:45
PROVIDERS: ATTEND Family Medicine
PROC: 3E033GC Introduction of Other Therapeutic Substance into Peripheral Vein, Percutaneous Approach (ICD-10-PCS; principal; 2017-08-01)
DX: E83.51 Hypocalcemia (principal)
CPT/HCPCS: 36415; 82310; 96374; J0610

== ENCOUNTER 2017-08-02 14:46 | Outpatient (CLI) | payer OTHER ==
[2017-08-02] MEDS ORDERED: DEXTROSE 5% IV PRN (16:30)
[2017-08-02] MEDS ORDERED: WATER IV PRN (16:30)
[2017-08-02] MEDS ORDERED: CALCIUM GLUCONATE IV PRN (16:30)
[2017-08-02] MEDS: POTASSIUM CHLORIDE 20 MEQ/50 ML RTU IV SCH ×2 (16:39→18:31)
[2017-08-02 16:49] LABS: ABSOLUTE EOSINOPHILS # (AUTO) 0.3 10^3/uL (0.0-0.6); ABSOLUTE LYMPHOCYTES (AUTO) 1.3 10^3/uL (0.5-4.7); ABSOLUTE MONOCYTES (AUTO) 0.7 10^3/uL (0.1-1.4); ABSOLUTE NEUT (AUTO) 4.3 10^3/uL (1.7-8.2); BASOPHILS % (AUTO) 0.7 % (0-2); EOSINOPHILS % (AUTO) 5.3 % (0-6); HEMATOCRIT 21.4 % (36.0-47.0); LYMPHOCYTES % (AUTO) 19.3 % (13-45); MEAN CORPUSCULAR HEMOGLOBIN 28.3 pg (27.0-33.4); MEAN CORPUSCULAR HGB CONC 34.1 g/dL (32.0-36.0); MEAN CORPUSCULAR VOLUME 83 fl (80-97); MONOCYTES % (AUTO) 10.1 % (3-13); PLATELET COUNT 257 10^3/uL (150-450); RED BLOOD COUNT 2.58 10^6/uL (3.72-5.28); SEGMENTED NEUTROPHILS % (AUTO) 64.6 % (42-78); TOTAL CELLS COUNTED % (AUTO) 100 %; WHITE BLOOD COUNT 6.6 10^3/uL (4.0-10.5)
[2017-08-02 16:56] LABS: HEMOGLOBIN 7.3 g/dL (12.0-15.5)
[2017-08-02 17:03] LABS: ANION GAP 11 (5-19); BLOOD UREA NITROGEN 13 mg/dL (7-20); CARBON DIOXIDE 24 mmol/L (22-30); CHLORIDE 105 mmol/L (98-107); GLUCOSE 120 mg/dL (75-110); PHOSPHORUS 3.9 mg/dL (2.5-4.5); POTASSIUM 3.4 mmol/L (3.6-5.0); SODIUM 140.3 mmol/L (137-145)
[2017-08-02 17:17] LABS: CALCIUM 5.6 mg/dL (8.4-10.2)
== END 2017-08-02 23:05 | disposition home or self-care (01) ==
LOC: II 14:46 → 3W 14:49 → II 23:05
PROVIDERS: ATTEND Internal Medicine
PROC: 3E043GC Introduction of Other Therapeutic Substance into Central Vein, Percutaneous Approach (ICD-10-PCS; principal; 2017-08-02)
DX: E83.51 Hypocalcemia (principal); E87.6 Hypokalemia; C67.9 Malignant neoplasm of bladder, unspecified; E83.42 Hypomagnesemia
CPT/HCPCS: 36415; 83735; 84100; 84443; 85025; 80048; 83970; J0610; J3480; J7060; 96365; 96366; 96367

== ENCOUNTER → 2017-08-09 | Outpatient (CLI) | payer OTHER ==
[2017-08-09 11:57] LABS: ABSOLUTE BASOPHILS # (AUTO) 0.1 10^3/uL (0.0-0.2); ABSOLUTE EOSINOPHILS # (AUTO) 0.2 10^3/uL (0.0-0.6); ABSOLUTE LYMPHOCYTES (AUTO) 1.1 10^3/uL (0.5-4.7); ABSOLUTE MONOCYTES (AUTO) 0.6 10^3/uL (0.1-1.4); ABSOLUTE NEUT (AUTO) 4.9 10^3/uL (1.7-8.2); BASOPHILS % (AUTO) 0.8 % (0-2); EOSINOPHILS % (AUTO) 3.5 % (0-6); HEMATOCRIT 23.8 % (36.0-47.0); LYMPHOCYTES % (AUTO) 15.3 % (13-45); MEAN CORPUSCULAR HEMOGLOBIN 28.2 pg (27.0-33.4); MEAN CORPUSCULAR HGB CONC 33.6 g/dL (32.0-36.0); MEAN CORPUSCULAR VOLUME 84 fl (80-97); MONOCYTES % (AUTO) 9.4 % (3-13); PLATELET COUNT 323 10^3/uL (150-450); RED BLOOD COUNT 2.84 10^6/uL (3.72-5.28); RED CELL DISTRIBUTION WIDTH 17.4 % (11.5-14.0); TOTAL CELLS COUNTED % (AUTO) 100 %; WHITE BLOOD COUNT 6.9 10^3/uL (4.0-10.5)
[2017-08-09 12:17] LABS: ALANINE AMINOTRANSFERASE 22 U/L (9-52); ALBUMIN 3.5 g/dL (3.5-5.0); ALKALINE PHOSPHATASE 420 U/L (38-126); ANION GAP 11 (5-19); ASPARTATE AMINO TRANSFERASE 21 U/L (14-36); BILIRUBIN,DIRECT 0.1 mg/dL (0.0-0.4); BILIRUBIN,TOTAL 0.1 mg/dL (0.2-1.3); BLOOD UREA NITROGEN 14 mg/dL (7-20); CALCIUM 7.7 mg/dL (8.4-10.2); CARBON DIOXIDE 27 mmol/L (22-30); CHLORIDE 105 mmol/L (98-107); GLUCOSE 90 mg/dL (75-110); PHOSPHORUS 3.1 mg/dL (2.5-4.5); SODIUM 143.3 mmol/L (137-145); TOTAL PROTEIN 6.4 g/dL (6.3-8.2)
== END ==
LOC: OD 11:09
PROVIDERS: ATTEND Internal Medicine Nephrology
DX: E83.42 Hypomagnesemia (principal); E83.51 Hypocalcemia; C67.9 Malignant neoplasm of bladder, unspecified
CPT/HCPCS: 36415; 80053; 83970; 84100; 85025

== ENCOUNTER → 2017-09-01 | Outpatient (CLI) | payer OTHER ==
[2017-09-01 13:45] LABS: HEMATOCRIT 26.5 % (36.0-47.0); MEAN CORPUSCULAR HEMOGLOBIN 28.9 pg (27.0-33.4); MEAN CORPUSCULAR VOLUME 85 fl (80-97); PLATELET COUNT 313 10^3/uL (150-450); RED BLOOD COUNT 3.12 10^6/uL (3.72-5.28); WHITE BLOOD COUNT 6.9 10^3/uL (4.0-10.5)
[2017-09-01 14:08] LABS: ALANINE AMINOTRANSFERASE 21 U/L (9-52); ALBUMIN 3.6 g/dL (3.5-5.0); ALKALINE PHOSPHATASE 662 U/L (38-126); ANION GAP 11 (5-19); ASPARTATE AMINO TRANSFERASE 22 U/L (14-36); BILIRUBIN,DIRECT 0.3 mg/dL (0.0-0.4); BILIRUBIN,TOTAL 0.3 mg/dL (0.2-1.3); BLOOD UREA NITROGEN 14 mg/dL (7-20); CARBON DIOXIDE 24 mmol/L (22-30); CHLORIDE 107 mmol/L (98-107); GLUCOSE 111 mg/dL (75-110); PHOSPHORUS 2.2 mg/dL (2.5-4.5); POTASSIUM 4.4 mmol/L (3.6-5.0); SODIUM 142.1 mmol/L (137-145); TOTAL PROTEIN 6.5 g/dL (6.3-8.2)
== END ==
LOC: OD 12:59
PROVIDERS: ATTEND Physician Assistant Medical
DX: D64.9 Anemia, unspecified (principal); E83.51 Hypocalcemia; E21.3 Hyperparathyroidism, unspecified
CPT/HCPCS: 36415; 80053; 83970; 84100; 85027

== ENCOUNTER → 2017-10-02 | Outpatient (CLI) | payer OTHER ==
[2017-10-02 11:49] LABS: HEMATOCRIT 26.2 % (36.0-47.0); HEMOGLOBIN 8.9 g/dL (12.0-15.5); MEAN CORPUSCULAR HEMOGLOBIN 28.5 pg (27.0-33.4); MEAN CORPUSCULAR HGB CONC 34.2 g/dL (32.0-36.0); MEAN CORPUSCULAR VOLUME 83 fl (80-97); PLATELET COUNT 326 10^3/uL (150-450); RED BLOOD COUNT 3.14 10^6/uL (3.72-5.28); RED CELL DISTRIBUTION WIDTH 18.8 % (11.5-14.0); WHITE BLOOD COUNT 7.9 10^3/uL (4.0-10.5)
[2017-10-02 12:08] LABS: ANION GAP 13 (5-19); BLOOD UREA NITROGEN 11 mg/dL (7-20); CALCIUM 8.3 mg/dL (8.4-10.2); CARBON DIOXIDE 25 mmol/L (22-30); CHLORIDE 102 mmol/L (98-107); GLUCOSE 127 mg/dL (75-110); PHOSPHORUS 2.9 mg/dL (2.5-4.5); POTASSIUM 3.5 mmol/L (3.6-5.0); SODIUM 139.7 mmol/L (137-145)
== END ==
LOC: OD 11:08
PROVIDERS: ATTEND Internal Medicine Nephrology
DX: E83.51 Hypocalcemia (principal); E83.42 Hypomagnesemia; D64.9 Anemia, unspecified
CPT/HCPCS: 36415; 80048; 83735; 83970; 84100; 85027

== ENCOUNTER 2017-10-05 07:46 | Inpatient (IN) | payer OTHER ==
[2017-10-05] MEDS ORDERED: ONDANSETRON HCL INJ/PF 4 MG/2 ML SDV IV ONE (08:54)
--- NOTE | 2017-10-05 08:54 | ER Document Report ---
ED General - General Chief Complaint: Weakness Stated Complaint: FALL/ WEAKNESS Time Seen by Provider: 10/05/17 08:19 Notes: 67-year-old female patient to the emergency department chief complaint of nausea , vomiting and not feeling well. Fell this morning as well. Has history of metastatic urothelial bladder cancer. On chemotherapy. Followed by oncology. At this happen multiple occasions. Will get dehydrated. Has a history of dehydration. Having some chills but does not report fever. No significant focal pain. States that she hurts all over. Small abrasion on her left arm. Did not hit her head. Did not lose consciousness. The friend that is present states that she went over to visit with her last night and she was having a lot of vomiting. Was able to get her to drink 2 small drinks of Ensure. TRAVEL OUTSIDE OF THE [place] IN LAST 30 DAYS: No - HPI Onset: Yesterday Onset/Duration: Gradual, Worse Quality of pain: Achy Severity: Moderate Pain Level: 3 - Related Data Allergies/Adverse Reactions: codeine Allergy (Severe, Verified 10/05/17 07:47) N AND V vancomycin Allergy (Severe, Verified 10/05/17 07:47) Anaphylaxis hydrocodone Allergy (Verified 10/05/17 07:47) VOMITING oxycodone Allergy (Verified 10/05/17 07:47) VOMITING Past Medical History - General Information source: Patient - Social History Smoking Status: Never Smoker Cigarette use (# per day): No Frequency of alcohol use: None Drug Abuse: None Lives with: Alone Family History: Reviewed & Not Pertinent - Past Medical History Cardiac Medical History: Reports: Hx Hypercholesterolemia, Hx Hypertension - ON MEDS,TRIPLE BYPASS Denies: Hx Coronary Artery Disease, Hx Heart Attack Pulmonary Medical History: Reports: Hx COPD Denies: Hx Asthma, Hx Bronchitis, Hx Pneumonia Neurological Medical History: Denies: Hx Cerebrovascular Accident, Hx Seizures Renal/ Medical History: Denies: Hx Peritoneal Dialysis Musculoskeletal Medical History: Reports Hx Arthritis Past Surgical History: Reports: Hx Cardiac Catheterization, Hx Cardiac Surgery - CABG x3 01/2017, Hx Genitourinary Surgery - Bilat ureteral stents, Hx Hysterectomy - Immunizations Hx Diphtheria, Pertussis, Tetanus Vaccination: No Review of Systems - Review of Systems Constitutional: Malaise, Weakness. denies: Fever EENT: denies: Double vision, Ear pain, Difficulty swallowing, Throat swelling, Vertigo Cardiovascular: Palpitations, Heart racing, Dizziness, Lightheaded. denies: Chest pain, Orthopnea, Dyspnea, Edema Respiratory: Short of breath. denies: Cough, Hurts to breathe, Wheezing Gastrointestinal: Nausea, Vomiting. denies: Abdominal pain, Diarrhea Genitourinary: Flank pain, Other - Other cancer, nephrostomy tubes. Musculoskeletal: Back pain. denies: Joint pain, Joint swelling, Leg swelling, Ankle swelling Skin: Other - Abrasion on left forearm. denies: Change in color, Dryness, Lumps Hematologic/Lymphatic: Anemia, Easy bleeding, Easy bruising Neurological/Psychological: denies: Confusion, Weakness, Numbness Physical Exam - Vital signs Vitals: Temp Pulse Resp BP 99.5 F 127 H 22 H 116/69 10/05/17 07:54 10/05/17 07:54 10/05/17 07:54 10/05/17 07:54 Interpretation: Hypotensive, Tachycardic - Notes Notes: Ill-appearing female - General General appearance: Alert. No: Appears well In distress: Moderate - HEENT Head: Normocephalic, Atraumatic Eyes: Normal Pupils: PERRL Mucous membranes: Dry - Respiratory Respiratory status: No respiratory distress Chest status: Nontender Breath sounds: Normal Chest palpation: Normal - Cardiovascular Rhythm: Tachycardia Heart sounds: Normal auscultation Murmur: No - Abdominal Inspection: Normal Distension: No distension Bowel sounds: Normal Tenderness: Nontender Organomegaly: No organomegaly - Rectal Stool: Heme negative Hemorrhoids: None - Back Back: Nontender Notes: Nephrostomy tubes in place. - Extremities General upper extremity: Normal inspection, Nontender, Normal color, Normal ROM , Normal temperature, Other - Superficial linear abrasion on the left forearm during approximately 7 cm General lower extremity: Normal inspection, Nontender, Normal color, Normal ROM , Normal temperature. No: José's sign - Neurological Neuro grossly intact: Yes Cognition: Normal Orientation: AAOx4 [place] Coma Scale Eye Opening: Spontaneous Meggan Coma Scale Verbal: Oriented Meggan Coma Scale Motor: Obeys Commands [place] Coma Scale Total: 15 Speech: Normal Motor strength normal: LUE, RUE, LLE, RLE Sensory: Normal - Psychological Associated symptoms: Normal affect, Normal mood - Skin Skin Temperature: Warm Skin Moisture: Dry Skin Color: Normal, Other - Superficial linear abrasion left forearm measuring approximately 7 cm Course - Re-evaluation Re-evalutation: 10/05/17 10:[address] Moody, requesting CT chest abdomen and pelvis for staging if possible. Will continue to hydrate with fluids. Treating his possible sepsis. Nausea meds and pain meds ordered. 10/05/17 12:19 Patient's blood pressure is still low. Has had 2 L of fluid and blood pressure now is currently is 90/60. Lactate was normal. Afebrile. Potentially be septic. Blood cultures have been obtained. Will consult patient's primary care provider at this time for admission to the hospital. Will type and cross and order transfused PRBCs based on low hemoglobin and hematocrit. 10/05/17 12:[address] Bella. Will admit at this time to the ICU. 10/05/17 14:15 Laboratory 10/05/17 10/05/17 10/05/17 09:30 09:30 09:30 WBC 13.0 H RBC 2.63 L Hgb 7.3 L Hct 22.1 L MCV 84 MCH 27.8 MCHC 33.1 RDW 19.0 H Plt Count 276 Total Counted 100 Seg Neutrophils % Not Reportable Seg Neuts % (Manual) 83 H Band Neutrophils % 7 H Lymphocytes % Not Reportable Lymphocytes % (Manual) 9 L Monocytes % Not Reportable Monocytes % (Manual) 1 L Eosinophils % Not Reportable Eosinophils % (Manual) 0 Basophils % Not Reportable Basophils % (Manual) 0 Absolute Neutrophils Not Reportable Abs Neuts (Manual) 11.7 H Absolute Lymphocytes Not Reportable Abs Lymphs (Manual) 1.2 Absolute Monocytes Not Reportable Abs Monocytes (Manual) 0.1 Absolute Eosinophils Not Reportable Absolute Eos (Manual) 0.0 Absolute Basophils Not Reportable Abs Basophils (Manual) 0.0 Toxic Granulation SLIGHT Clumped Platelets PRESENT Platelet Comment Not Reportable Polychromasia SLIGHT Poikilocytosis SLIGHT Anisocytosis 2+ Ovalocytes SLIGHT Sodium 136.2 L Potassium 3.3 L Chloride 100 Carbon Dioxide 24 Anion Gap 12 BUN 14 Creatinine 0.93 Est GFR ( Amer) > 60 Est GFR (Non-Af Amer) > 60 Glucose 109 Lactic Acid Calcium 7.5 L Magnesium Total Bilirubin 0.5 Direct Bilirubin 0.3 Neonat Total Bilirubin 0.3 Neonat Direct Bilirubin 0.0 Neonat Indirect Bili 0.3 AST 124 H ALT 20 Alkaline Phosphatase 1996 H Creatine Kinase 136 H CK-MB (CK-2) 0.58 Troponin I 0.069 Total Protein 5.4 L Albumin 2.8 L Urine Color Urine Appearance Urine pH Ur Specific [place] Urine Protein Urine Glucose (UA) Urine Ketones Urine Blood Urine Nitrite Urine Bilirubin Urine Urobilinogen Ur Leukocyte Esterase Urine WBC (Auto) Urine RBC (Auto) Urine Bacteria (Auto) Squamous Epi Cells Auto Urine Mucus (Auto) Urine Yeast (Budding) Urine Ascorbic Acid Stool Occult Blood Blood Type Antibody Screen Crossmatch 10/05/17 10/05/17 10/05/17 09:30 09:30 10:31 WBC RBC Hgb Hct MCV MCH MCHC RDW Plt Count Total Counted Seg Neutrophils % Seg Neuts % (Manual) Band Neutrophils % Lymphocytes % Lymphocytes % (Manual) Monocytes % Monocytes % (Manual) Eosinophils % Eosinophils % (Manual) Basophils % Basophils % (Manual) Absolute Neutrophils Abs Neuts (Manual) Absolute Lymphocytes Abs Lymphs (Manual) Absolute Monocytes Abs Monocytes (Manual) Absolute Eosinophils Absolute Eos (Manual) Absolute Basophils Abs Basophils (Manual) Toxic Granulation Clumped Platelets Platelet Comment Polychromasia Poikilocytosis Anisocytosis Ovalocytes Sodium Potassium Chloride Carbon Dioxide Anion Gap BUN Creatinine Est GFR ( Amer) Est GFR (Non-Af Amer) Glucose Lactic Acid 1.0 Calcium Magnesium Total Bilirubin Direct Bilirubin Neonat Total Bilirubin Neonat Direct Bilirubin Neonat Indirect Bili AST ALT Alkaline Phosphatase Creatine Kinase CK-MB (CK-2) Troponin I Total Protein Albumin Urine Color YELLOW Urine Appearance CLOUDY Urine pH 7.0 Ur Specific [place] 1.015 Urine Protein 100 H Urine Glucose (UA) NEGATIVE Urine Ketones NEGATIVE Urine Blood MODERATE H Urine Nitrite NEGATIVE Urine Bilirubin NEGATIVE Urine Urobilinogen NEGATIVE Ur Leukocyte Esterase MODERATE H Urine WBC (Auto) 22 Urine RBC (Auto) 126 Urine Bacteria (Auto) 1+ Squamous Epi Cells Auto 1 Urine Mucus (Auto) RARE Urine Yeast (Budding) PRESENT Urine Ascorbic Acid NEGATIVE Stool Occult Blood Blood Type O POSITIVE Antibody Screen NEGATIVE Crossmatch See Detail 10/05/17 10/05/17 13:15 13:26 WBC RBC Hgb Hct MCV MCH MCHC RDW Plt Count Total Counted Seg Neutrophils % Seg Neuts % (Manual) Band Neutrophils % Lymphocytes % Lymphocytes % (Manual) Monocytes % Monocytes % (Manual) Eosinophils % Eosinophils % (Manual) Basophils % Basophils % (Manual) Absolute Neutrophils Abs Neuts (Manual) Absolute Lymphocytes Abs Lymphs (Manual) Absolute Monocytes Abs Monocytes (Manual) Absolute Eosinophils Absolute Eos (Manual) Absolute Basophils Abs Basophils (Manual) Toxic Granulation Clumped Platelets Platelet Comment Polychromasia Poikilocytosis Anisocytosis Ovalocytes Sodium Potassium Chloride Carbon Dioxide Anion Gap BUN Creatinine Est GFR ( Amer) Est GFR (Non-Af Amer) Glucose Lactic Acid Calcium Magnesium 1.7 Total Bilirubin Direct Bilirubin Neonat Total Bilirubin Neonat Direct Bilirubin Neonat Indirect Bili AST ALT Alkaline Phosphatase Creatine Kinase CK-MB (CK-2) Troponin I Total Protein Albumin Urine Color Urine Appearance Urine pH Ur Specific [place] Urine Protein Urine Glucose (UA) Urine Ketones Urine Blood Urine Nitrite Urine Bilirubin Urine Urobilinogen Ur Leukocyte Esterase Urine WBC (Auto) Urine RBC (Auto) Urine Bacteria (Auto) Squamous Epi Cells Auto Urine Mucus (Auto) Urine Yeast (Budding) Urine Ascorbic Acid Stool Occult Blood NEGATIVE Blood Type Antibody Screen Crossmatch Chest X-Ray 10/05/17 08:54 IMPRESSION: HEART ENLARGED WITHOUT FAILURE. NO OTHER SIGNIFICANT RADIOGRAPHIC FINDING IN THE CHEST. Abdomen/Pelvis CT 10/05/17 09:56 IMPRESSION: Bilateral nephrostomy tubes replacing renal stents. Apparent poorly defined mass just inferior to the right kidney along the inferior vena cava. Increased since previous. No bowel obstruction. Markedly thick-walled bladder. Extensive bony metastases. Interval development of ascites. Chest CT 10/05/17 09:56 IMPRESSION: Bilateral nephrostomy tubes replacing renal stents. Apparent poorly defined mass just inferior to the right kidney along the inferior vena cava. Increased since previous. No bowel obstruction. Markedly thick-walled bladder. Extensive bony metastases. Interval development of ascites. - Vital Signs Vital signs: Temp Pulse Resp BP Pulse Ox 99.3 F 127 H 37 H 85/51 L 87 L 10/05/17 13:45 10/05/17 07:54 10/05/17 13:45 10/05/17 13:45 10/05/17 13:44 - Laboratory Result Diagrams: 10/05/17 09:30 10/05/17 09:30 Laboratory results interpreted by me: 10/05/17 10/05/17 10/05/17 09:30 09:30 09:30 WBC 13.0 H RBC 2.63 L Hgb 7.3 L Hct 22.1 L RDW 19.0 H Seg Neuts % (Manual) 83 H Band Neutrophils % 7 H Lymphocytes % (Manual) 9 L Monocytes % (Manual) 1 L Abs Neuts (Manual) 11.7 H Sodium 136.2 L Potassium 3.3 L Calcium 7.5 L AST 124 H Alkaline Phosphatase 1996 H Creatine Kinase 136 H Total Protein 5.4 L Albumin 2.8 L Urine Protein Urine Blood Ur Leukocyte Esterase Crossmatch See Detail 10/05/17 10:31 WBC RBC Hgb Hct RDW Seg Neuts % (Manual) Band Neutrophils % Lymphocytes % (Manual) Monocytes % (Manual) Abs Neuts (Manual) Sodium Potassium Calcium AST Alkaline Phosphatase Creatine Kinase Total Protein Albumin Urine Protein 100 H Urine Blood MODERATE H Ur Leukocyte Esterase MODERATE H Crossmatch Critical Care Note - Critical Care Note Total time excluding time spent on procedures (mins): 45 Comments: Oncological emergency, hypotension, tachycardia. Discharge - Discharge Clinical Impression: Malignant neoplasm metastatic from bladder Anemia Qualifiers: Anemia type: unspecified type Qualified Code(s): D64.9 - Anemia, unspecified Intractable vomiting with nausea Qualifiers: Vomiting type: unspecified Qualified Code(s): R11.2 - Nausea with vomiting, unspecified Disposition: ADMITTED INPATIENT Admitting Provider: Bella Unit Admitted: ICU
[2017-10-05] MEDS: NORMAL SALINE 1000 ML 1,000 ML IV PRN ×3 (09:00→23:19)
--- NOTE | 2017-10-05 09:42 | RADIOLOGY REPORT (SQ) ---
EXAM DESCRIPTION: CHEST SINGLE VIEW COMPLETED DATE/TIME: 10/05/2017 9:24 am REASON FOR STUDY: sob COMPARISON: 06/29/2017. NUMBER OF VIEWS: One view. TECHNIQUE: Single frontal radiographic view of the chest acquired. LIMITATIONS: None. FINDINGS: LUNGS AND PLEURA: No opacities, masses or pneumothorax. No pleural effusion. MEDIASTINUM AND HILAR STRUCTURES: No masses. Contour normal. HEART AND VASCULAR STRUCTURES: Heart enlarged without failure. Normal vasculature. BONES: No acute findings. HARDWARE: Sternotomy wires, coronary bypass markers, defibrillator, vascular access port. OTHER: No other significant finding. IMPRESSION: HEART ENLARGED WITHOUT FAILURE. NO OTHER SIGNIFICANT RADIOGRAPHIC FINDING IN THE CHEST. TECHNICAL DOCUMENTATION: JOB ID: [id number] [employer]- All Rights Reserved Reading location - IP/workstation name: [email or web address]
[2017-10-05] MEDS ORDERED: FENTANYL CITRATE INJ/PF 100 MCG/2 ML AMPUL IV ONE (09:57)
[2017-10-05] MEDS ORDERED: LORAZEPAM INJ 2 MG/1 ML VIAL IV ONE (09:57)
[2017-10-05 10:13] LABS: HEMATOCRIT 22.1 % (36.0-47.0); MEAN CORPUSCULAR HEMOGLOBIN 27.8 pg (27.0-33.4); MEAN CORPUSCULAR HGB CONC 33.1 g/dL (32.0-36.0); MEAN CORPUSCULAR VOLUME 84 fl (80-97); PLATELET COUNT 276 10^3/uL (150-450); RED BLOOD COUNT 2.63 10^6/uL (3.72-5.28)
[2017-10-05 10:19] LABS: HEMOGLOBIN 7.3 g/dL (12.0-15.5)
[2017-10-05 10:30] LABS: ALANINE AMINOTRANSFERASE 20 U/L (9-52); ALBUMIN 2.8 g/dL (3.5-5.0); ANION GAP 12 (5-19); ASPARTATE AMINO TRANSFERASE 124 U/L (14-36); BILIRUBIN,DIRECT 0.3 mg/dL (0.0-0.4); BILIRUBIN,TOTAL 0.5 mg/dL (0.2-1.3); BLOOD UREA NITROGEN 14 mg/dL (7-20); CALCIUM 7.5 mg/dL (8.4-10.2); CARBON DIOXIDE 24 mmol/L (22-30); CHLORIDE 100 mmol/L (98-107); CREATINE KINASE 136 U/L (30-135); GLUCOSE 109 mg/dL (75-110); NEONATAL BILIRUBIN RESULT 0.3 mg/dL (0.1-1.1); POTASSIUM 3.3 mmol/L (3.6-5.0); SODIUM 136.2 mmol/L (137-145); TOTAL PROTEIN 5.4 g/dL (6.3-8.2)
[2017-10-05 10:37] LABS: ALKALINE PHOSPHATASE 1996 U/L (38-126)
[2017-10-05 10:38] LABS: ABSOLUTE LYMPHOCYTES# (MANUAL) 1.2 10^3/uL (0.5-4.7); ABSOLUTE MONOCYTES # (MANUAL) 0.1 10^3/uL (0.1-1.4); ABSOLUTE NEUTROPHILS# (MANUAL) 11.7 10^3/uL (1.7-8.2); ANISOCYTOSIS 2+; BAND NEUTROPHILS % (MANUAL) 7 % (3-5); BASOPHILS % (MANUAL) 0 % (0-2); EOSINOPHILS % (MANUAL) 0 % (0-6); LYMPHOCYTES % (MANUAL) 9 % (13-45); MONOCYTES % (MANUAL) 1 % (3-13); OVALOCYTES SLIGHT; PLATELET CLUMPS PRESENT; POIKILOCYTOSIS SLIGHT; POLYCHROMASIA SLIGHT; SEGMENTED NEUTROPHILS % (MAN) 83 % (42-78); TOTAL CELLS COUNTED 100; TOXIC GRANULATION SLIGHT
[2017-10-05 10:41] LABS: CREATINE KINASE MB 0.58 ng/mL (<4.55)
[2017-10-05 10:43] LABS: TROPONIN I 0.069 ng/mL
[2017-10-05 10:52] LABS: APPEARANCE,URINE CLOUDY; BILIRUBIN,URINE NEGATIVE (NEGATIVE); COLOR,URINE YELLOW; GLUCOSE, URINE NEGATIVE (NEGATIVE); KETONES,URINE NEGATIVE (NEGATIVE); LEUKOCYTE ESTERASE,URINE MODERATE (NEGATIVE); NITRITE,URINE NEGATIVE (NEGATIVE); PROTEIN,URINE 100 mg/dL (NEGATIVE); URINE SPECIFIC GRAVITY 1.015; UROBILINOGEN,URINE NEGATIVE mg/dL (<2.0)
--- NOTE | 2017-10-05 11:28 | RADIOLOGY REPORT (SQ) ---
EXAM DESCRIPTION: CT CHEST WITH; CT ABD/PELVIS WITH IV ONLY COMPLETED DATE/TIME: 10/05/2017 10:52 am REASON FOR STUDY: metastatic cancer fall COMPARISON: CT scan 06/29/2017 CONTRAST TYPE AND DOSE: contrast/concentration: Isovue 370.00 mg/ml; Total Contrast Delivered: 65.0 ml; Total Saline Delivered: 65.0 ml RENAL FUNCTION: GFR > 60. TECHNIQUE: CT scan of the chest performed using helical scanning technique with dynamic intravenous contrast injection. Images reviewed with lung, soft tissue and bone windows. Reconstructed coronal a nd sagittal MPR images reviewed. All images stored on PACS. CT scan of the abdomen and pelvis performed with intravenous and without oral contrastusing helical s joaquín technique with dynamic intravenous contrast injection. Images reviewed with lung, soft tissu e and bone windows. Reconstructed coronal and sagittal MPR images reviewed. Delayed images for eval uation of the urinary system also acquired and evaluated. All images stored on PACS. All CT scanners at this facility use dose modulation, iterative reconstruction, and/or weight based d osing when appropriate to reduce radiation dose to as low as reasonably achievable (ALARA). [facility]: Dose Right [facility]: CareDose [facility]: Dose Right [facility]: Teradose 4D [facility]: Smart Votigo RADIATION DOSE: CT Rad equipment meets quality standard of care and radiation dose reduction techniq ues were employed. CTDIvol: 9.0 - 13.0 mGy. DLP: 1181 mGy-cm. . LIMITATIONS: None. FINDINGS: CHEST: LUNGS AND PLEURA: No pulmonary nodules currently noted. Previously noted 3 mm nodule not identified, and typical of a intrathoracic lymph node. There has been interval development of bilateral pleural effusions. HILAR AND MEDIASTINAL STRUCTURES: No identified masses or abnormal nodes. HEART AND VASCULAR STRUCTURES: No aneurysm or dissection. No central pulmonary emboli. No pericardi al effusion. HARDWARE: None. THYROID AND OTHER SOFT TISSUES: No masses. No adenopathy. BONES: Extensive osseous metastatic disease without obvious significant progression. No fractures no dung. OTHER: No other significant finding. ABDOMEN AND PELVIS: LIVER: Normal size. No masses. No dilated ducts. SPLEEN: Normal size. No focal lesions. PANCREAS: No masses. No significant calcifications. No adjacent inflammation or peripancreatic fluid collections. Pancreatic duct not dilated. GALLBLADDER: No identified stones by CT criteria. No inflammatory changes to suggest cholecystitis. ADRENAL GLANDS: No significant masses or asymmetry. RIGHT KIDNEY AND URETER: Percutaneous stent. No hydronephrosis. No focal masses. LEFT KIDNEY AND URETER: Percutaneous stent. No hydronephrosis. No focal masses. AORTA AND VESSELS: No aneurysm. No dissection. Renal arteries, SMA, celiac without stenosis. RETROPERITONEUM: No retroperitoneal adenopathy, hemorrhage or masses. BOWEL AND PERITONEAL CAVITY: There is now diffuse ascites throughout the abdomen. Possible mass just inferior to the right kidney along the inferior vena cava. Tissue planes are poorly defined. Incre ased from previous. No evidence for bowel obstruction. Diverticulosis. APPENDIX: Not visualized ABDOMINAL WALL: No masses. No hernias. PELVIS: Free fluid. No focal masses. BONES: Diffuse bony metastatic lesions. No occult fracture. OTHER: No other significant finding. IMPRESSION: Bilateral nephrostomy tubes replacing renal stents. Apparent poorly defined mass just inferior to the right kidney along the inferior vena cava. Increas ed since previous. No bowel obstruction. Markedly thick-walled bladder. Extensive bony metastases. Interval development of ascites. TECHNICAL DOCUMENTATION: JOB ID: [id number] Quality ID # [id number]: Final reports with documentation of one or more dose reduction techniques (e.g., Au tomated exposure control, adjustment of the mA and/or kV according to patient size, use of iterative reconstruction technique) 2010 [employer]- All Rights Reserved Reading location - IP/workstation name: [email or web address]
[2017-10-05] MEDS ORDERED: NORMAL SALINE 1000 ML 1,000 ML IV ONE ×2 (12:13→13:21)
[2017-10-05] MEDS ORDERED: NORMAL SALINE 250 ML IV PRN (12:18)
[2017-10-05] MEDS ORDERED: PIPERACILLIN/TAZOBACTAM 3.375 GM VIAL IV ONE (12:24)
[2017-10-05] MEDS ORDERED: LEVOFLOXACIN 500 MG/D5W RTU 500 MG/100 ML RTUPB IV ONE (12:25)
[2017-10-05] MEDS ORDERED: ONDANSETRON HCL INJ/PF 4 MG/2 ML SDV IV PRN (12:50)
[2017-10-05] MEDS ORDERED: ACETAMINOPHEN 325 MG TABLET PO PRN (12:50)
[2017-10-05 14:26] LABS: CREATINE KINASE MB 0.93 ng/mL (<4.55)
[2017-10-05] MEDS ORDERED: POTASSI CL 20 MEQ/50 ML RIDER 20 MEQ/50 ML RTUPB IV ONE (14:30)
[2017-10-05 14:41] LABS: TROPONIN I 0.148 ng/mL
[2017-10-05] MEDS ORDERED: DIPHENHYDRAMINE HCL 50 MG/ML VIAL ONE (16:45)
[2017-10-05] MEDS ORDERED: ACETAMINOPHEN 650 MG SUPP.RECT PR ONE (16:54)
[2017-10-05] MEDS: FAMOTIDINE INJ/PF 20 MG/2 ML SDV IV SCH (17:01)
[2017-10-05] MEDS ORDERED: VASOPRESSIN INJ 20 UNIT/1 ML VIAL ONE (17:21)
--- NOTE | 2017-10-05 17:26 | PDOC H&P ---
History of Present Illness Admission Date/PCP: ELISABETH DORADO MD Patient complains of: Nausea vomiting generalized weakness History of Present Illness: VIPUL SCHMITZ is a 67 year old female This is a 66-year-old female with a stage IV bladder cancer status post ureteral obstructions status post bilateral nephrostomy tubes placed in the [place] history of the electrolytes imbalance with the history of the hypo- parathyroidism and hypocalcemia history of the coronary artery disease status post CABG and the pacemaker placement and congestive heart failure with currently getting chemotherapy with the metastatic bone disease noticed more nausea or vomiting since last couple of days and feeling very weak and dehydratedAnd in the emergency department patient was hypotensive with the systolic blood pressure was 80 and patients was tachycardic and patient hemoglobin was only 7.3 was running normally 9.5 with the oncologist's office in couple of weeks Patients received IV fluids and IV antibiotic broad-spectrum started due to the elevated white count with possible underlying sepsis Patient's denied any chest pain denied any shortness of the breath Patient's recently see a concrete fence builder in [facility] for the hypocalcemia and also see a Dr. Hudson Patient's is currently a full code Past Medical History Cardiac Medical History: Reports: Congestive Heart Failure, Coronary Artery Disease, Hyperlipidema, Hypertension - ON MEDS,TRIPLE BYPASS Denies: Myocardial Infarction Pulmonary Medical History: Reports: Chronic Obstructive Pulmonary Disease (COPD) , Sleep Apnea Denies: Asthma, Bronchitis, Pneumonia Neurological Medical History: Denies: Seizures Endocrine History Note: Hypoparathyroidism and hypocalcemia Renal/ Medical History: Reports: Chronic Kidney Disease Malignancy History Note: Stage IV bladder cancer with the metastasis bone GI Medical History: Reports: Gastroesophageal Reflux Disease Musculoskeltal Medical History: Reports: Arthritis Psychiatric Medical History: Reports: Depression Hematology: Reports: Anemia Past Surgical History Past Surgical History: Reports: Cardiac Catheterization, Hysterectomy Social History Lives with: Alone Smoking Status: Never Smoker Frequency of Alcohol Use: None Hx Recreational Drug Use: No Hx Prescription Drug Abuse: No Family History Family History: Reviewed & Not Pertinent Parental Family History Reviewed: Yes Children Family History Reviewed: Yes Sibling(s) Family History Reviewed.: Yes Medication/Allergy Home Medications: Budesonide/Formoterol Fumarate [Symbicort Hfa 80-4.5 Mcg Inhaler 6.9 gm] 2 puff IH BID 01/25/16 Tiotropium [place] [Spiriva Respimat] 2 puff IH DAILY 01/25/16 Aspirin [Aspirin EC] 81 mg PO DAILY 02/06/17 Atorvastatin Calcium [Lipitor 80 mg Tablet] 80 mg PO QHS 02/06/17 Carvedilol 6.25 mg PO BID 02/06/17 Ipratropium/Albuterol Sulfate [Iprat-Albut 0.5-3(2.5) Mg/3 Ml] 3 ml IH PRN PRN 02/06/17 Calcium Carbonate [Calcium] 500 mg PO DAILY 06/16/17 Cholecalciferol (Vitamin D3) [Vitamin D3] 1,000 unit PO DAILY 06/16/17 Ondansetron HCl [Zofran 8 mg Tablet] 8 mg PO Q8HP PRN 06/16/17 Promethazine HCl [Phenergan 25 mg Tablet] 25 - 50 mg PO ASDIR PRN 06/16/17 Acetaminophen [Tylenol] 325 mg PO PRN PRN 06/19/17 Solifenacin Succinate [Vesicare] 1 tab PO DAILY 06/19/17 Allergies/Adverse Reactions: codeine Allergy (Severe, Verified 10/05/17 07:47) N AND V vancomycin Allergy (Severe, Verified 10/05/17 07:47) Anaphylaxis hydrocodone Allergy (Verified 10/05/17 07:47) VOMITING oxycodone Allergy (Verified 10/05/17 07:47) VOMITING Review of Systems Constitutional: PRESENT: anorexia, fatigue, weakness. ABSENT: chills, fever(s) , headache(s), weight gain, weight loss Eyes: ABSENT: visual disturbances Ears: ABSENT: hearing changes Cardiovascular: ABSENT: chest pain, dyspnea on exertion, edema, orthropnea, palpitations Respiratory: ABSENT: cough, hemoptysis Gastrointestinal: PRESENT: bloating, nausea, vomiting. ABSENT: abdominal pain, constipation, diarrhea, hematemesis, hematochezia Genitourinary: ABSENT: dysuria, hematuria Musculoskeletal: PRESENT: back pain. ABSENT: joint swelling Integumentary: ABSENT: rash, wounds Neurological: ABSENT: abnormal gait, abnormal speech, confusion, dizziness, focal weakness, syncope Psychiatric: PRESENT: depression. ABSENT: anxiety, homidical ideation, suicidal ideation Endocrine: ABSENT: cold intolerance, heat intolerance, menstrual abnormalities, polydipsia, polyuria Hematologic/Lymphatic: ABSENT: easy bleeding, easy bruising, lymphadenopathy Physical Exam Vital Signs: Temp Pulse Resp BP Pulse Ox 99.5 F 127 H 30 H 89/53 L 93 10/05/17 07:54 10/05/17 07:54 10/05/17 12:15 10/05/17 12:15 10/05/17 12:15 Intake & Output 10/04/17 10/05/17 10/06/17 06:59 06:59 06:59 Intake Total 1999 Balance 1999 Weight 60.2 kg General appearance: PRESENT: no acute distress Head exam: PRESENT: atraumatic, normocephalic Eye exam: PRESENT: conjunctiva pink, EOMI, PERRLA. ABSENT: scleral icterus Ear exam: PRESENT: normal external ear exam Mouth exam: PRESENT: dry mucosa, neck supple, tongue midline Neck exam: PRESENT: full ROM. ABSENT: carotid bruit, JVD, lymphadenopathy, thyromegaly Respiratory exam: PRESENT: clear to auscultation za[place] Cardiovascular exam: PRESENT: RRR. ABSENT: diastolic murmur, rubs, systolic murmur Pulses: PRESENT: normal dorsalis pedis pul, +2 pedal pulses bilateral Vascular exam: PRESENT: normal capillary refill GI/Abdominal exam: PRESENT: normal bowel sounds, soft. ABSENT: distended, guarding, mass, organolmegaly, rebound, tenderness Rectal exam: PRESENT: deferred Extremities exam: ABSENT: pedal edema Neurological exam: PRESENT: alert, awake, oriented to person, oriented to place , oriented to time, oriented to situation, CN II-XII grossly intact. ABSENT: motor sensory deficit Psychiatric exam: PRESENT: appropriate affect, normal mood. ABSENT: homicidal ideation, suicidal ideation Skin exam: PRESENT: dry, intact, warm. ABSENT: cyanosis, rash Results Laboratory Results: 10/05/17 09:30 10/05/17 09:30 10/05/17 10/05/17 10/05/17 09:30 09:30 09:30 WBC 13.0 H RBC 2.63 L Hgb 7.3 L Hct 22.1 L MCV 84 MCH 27.8 MCHC 33.1 RDW 19.0 H Plt Count 276 Seg Neutrophils % Not Reportable Lymphocytes % Not Reportable Monocytes % Not Reportable Eosinophils % Not Reportable Basophils % Not Reportable Absolute Neutrophils Not Reportable Absolute Lymphocytes Not Reportable Absolute Monocytes Not Reportable Absolute Eosinophils Not Reportable Absolute Basophils Not Reportable Sodium 136.2 L Potassium 3.3 L Chloride 100 Carbon Dioxide 24 Anion Gap 12 BUN 14 Creatinine 0.93 Est GFR ( Amer) > 60 Est GFR (Non-Af Amer) > 60 Glucose 109 Lactic Acid 1.0 Calcium 7.5 L Total Bilirubin 0.5 AST 124 H ALT 20 Alkaline Phosphatase 1996 H Total Protein 5.4 L Albumin 2.8 L Urine Color Urine Appearance Urine pH Ur Specific [place] Urine Protein Urine Glucose (UA) Urine Ketones Urine Blood Urine Nitrite Ur Leukocyte Esterase Urine WBC (Auto) Urine RBC (Auto) Blood Type Antibody Screen 10/05/17 10/05/17 09:30 10:31 WBC RBC Hgb Hct MCV MCH MCHC RDW Plt Count Seg Neutrophils % Lymphocytes % Monocytes % Eosinophils % Basophils % Absolute Neutrophils Absolute Lymphocytes Absolute Monocytes Absolute Eosinophils Absolute Basophils Sodium Potassium Chloride Carbon Dioxide Anion Gap BUN Creatinine Est GFR ( Amer) Est GFR (Non-Af Amer) Glucose Lactic Acid Calcium Total Bilirubin AST ALT Alkaline Phosphatase Total Protein Albumin Urine Color YELLOW Urine Appearance CLOUDY Urine pH 7.0 Ur Specific [place] 1.015 Urine Protein 100 H Urine Glucose (UA) NEGATIVE Urine Ketones NEGATIVE Urine Blood MODERATE H Urine Nitrite NEGATIVE Ur Leukocyte Esterase MODERATE H Urine WBC (Auto) 22 Urine RBC (Auto) 126 Blood Type O POSITIVE Antibody Screen NEGATIVE 10/05/17 10/05/17 09:30 09:30 Creatine Kinase 136 H CK-MB (CK-2) 0.58 Troponin I 0.069 Impressions: Chest X-Ray 10/05/17 08:54 IMPRESSION: HEART ENLARGED WITHOUT FAILURE. NO OTHER SIGNIFICANT RADIOGRAPHIC FINDING IN THE CHEST. Abdomen/Pelvis CT 10/05/17 09:56 IMPRESSION: Bilateral nephrostomy tubes replacing renal stents. Apparent poorly defined mass just inferior to the right kidney along the inferior vena cava. Increased since previous. No bowel obstruction. Markedly thick-walled bladder. Extensive bony metastases. Interval development of ascites. Chest CT 10/05/17 09:56 IMPRESSION: Bilateral nephrostomy tubes replacing renal stents. Apparent poorly defined mass just inferior to the right kidney along the inferior vena cava. Increased since previous. No bowel obstruction. Markedly thick-walled bladder. Extensive bony metastases. Interval development of ascites. Assessment & Plan - Diagnosis (1) Hypotension Qualifiers: Hypotension type: unspecified hypotension type Qualified Code(s): I95.9 - Hypotension, unspecified Is this a current diagnosis for this admission?: Yes Plan: Possible chemo-induced nausea vomiting underlying dehydration's versus underlying sepsis Start the patient on IV fluid in the setting of the heart failure continues to broad-spectrum antibiotic and if is not getting better consider pressor We also get the echocardiogram (2) Sepsis Qualifiers: Sepsis type: sepsis due to unspecified organism Qualified Code(s): A41.9 - Sepsis, unspecified organism Is this a current diagnosis for this admission?: Yes Plan: On chemotherapy with ongoing nephrostomy tubes will get the blood culture urine cultures with elevated white count was start the patient on broad-spectrum antibiotic until the cultures back (3) Coronary artery disease Qualifiers: Coronary Disease-Associated Artery/Lesion type: [place] artery Is this a current diagnosis for this admission?: Yes Plan: With elevated troponin most likely due to the sepsis And hypotension's consult the cardiology for further evaluation in the setting of the significant coronary disease (4) Congestive heart failure Qualifiers: Heart failure type: systolic Heart failure chronicity: chronic Qualified Code(s): I50.22 - Chronic systolic (congestive) heart failure Is this a current diagnosis for this admission?: Yes Plan: We will get the echocardiogram (5) Pacemaker Is this a current diagnosis for this admission?: Yes Plan: Consult with the cardiology (6) Hypocalcemia Is this a current diagnosis for this admission?: Yes Plan: Replace the calciums (7) Hypokalemia Is this a current diagnosis for this admission?: Yes Plan: Replace the potassium and check the magnesium well patient has significant electrolyte imbalance issues (8) Chronic kidney disease Qualifiers: Chronic kidney disease stage: stage 3 (moderate) Qualified Code(s): N18.3 - Chronic kidney disease, stage 3 (moderate) Is this a current diagnosis for this admission?: Yes Plan: Due to the obstructive uropathy currently all stable patient see Dr. Hudson as outpatient (9) Anemia Qualifiers: Anemia type: unspecified type Qualified Code(s): D64.9 - Anemia, unspecified Is this a current diagnosis for this admission?: Yes Plan: Transfused 2 units of the blood will get the stool guaiac study (10) Intractable vomiting with nausea Qualifiers: Vomiting type: unspecified Qualified Code(s): R11.2 - Nausea with vomiting , unspecified Is this a current diagnosis for this admission?: Yes Plan: Most likely due to the chemotherapy-induced (11) Malignant neoplasm metastatic from bladder Is this a current diagnosis for this admission?: Yes Plan: Patient had a CT scan of the chest and abdomen showing some new onset of the pleural effusion and some ascites will consult the oncology for further evaluations - Time Time Spent: 50 to 70 Minutes Critical Time spent with patient: 35 or more minutes Medications reviewed and adjusted accordingly: Yes Anticipated discharge: Other Within: Other - Inpatient Certification Medical Necessity: Need Close Monitoring Due to Risk of Patient Decompensation, Need For IV Fluids, Need For Continuous Telemetry Monitoring, Need for IV Antibiotics Post Hospital Care: D/C Holistic Specialist Documentation - Plan Summary Plan Summary: Very external discussed with the patient and family regarding the patient's current condition and coordinate care with the other library sales consultant patient have a very poor prognosis with continues to monitor the patient in the ICU
[2017-10-05] MEDS ORDERED: DEXTROSE 5%-WATER 250 ML with VASOPRESSIN 100 UNIT IV PRN ×2 (17:29)
[2017-10-05] MEDS ORDERED: DIPHENHYDRAMINE HCL 50 MG/ML VIAL IV ONE (17:30)
[2017-10-05] MEDS: DIGOXIN INJ 0.5 MG/2 ML AMPULE IV SCH ×2 (17:46→22:41)
[2017-10-05 17:51] LABS: ARTERIAL BLOOD BASE EXCESS -2.8 mmol/L; ARTERIAL BLOOD H2CO3 0.81 mmol/L (1.05-1.35); ARTERIAL BLOOD HCO3 20.1 mmol/L (20-26); ARTERIAL BLOOD O2 SATURATION 97.7 % (94-98); ARTERIAL BLOOD PCO2 26.8 mmHg (35-45); ARTERIAL BLOOD PH 7.49 (7.35-7.45); ARTERIAL BLOOD PO2 91.8 mmHg (80-100); ARTERIAL BLOOD TOTAL CO2 20.9 mmol/L (21-25)
[2017-10-05 17:54] LABS: ARTERIAL BLOOD FIO2 2L
[2017-10-05] MEDS ORDERED: BUDESONIDE/FORMOTEROL 80-4.5 MCG 60 PUFF/6.9 GM MDI IH SCH (18:00)
--- NOTE | 2017-10-05 18:23 | RADIOLOGY REPORT (SQ) ---
EXAM DESCRIPTION: CHEST SINGLE VIEW COMPLETED DATE/TIME: 10/05/2017 6:14 pm REASON FOR STUDY: Fluid Overload COMPARISON: 10/05/2017 NUMBER OF VIEWS: One view. TECHNIQUE: Single frontal radiographic view of the chest acquired. LIMITATIONS: None. FINDINGS: LUNGS AND PLEURA: No opacities, masses or pneumothorax. No pleural effusion. MEDIASTINUM AND HILAR STRUCTURES: No masses or contour abnormality. HEART AND VASCULATURE: Cardiac enlargement. Vascular congestion. BONES: No acute findings. HARDWARE: CABG hardware. Pacemaker defibrillator. All stable. OTHER: No other significant finding. IMPRESSION: CARDIAC ENLARGEMENT. VASCULAR CONGESTION. Deterioration from previous. TECHNICAL DOCUMENTATION: JOB ID: [id number] [employer]- All Rights Reserved Reading location - IP/workstation name: [email or web address]
[2017-10-05] MEDS ORDERED: DIPHENHYDRAMINE HCL 50 MG/ML VIAL IV PRN (18:30)
[2017-10-05] MEDS ORDERED: DEXAMETHASONE SOD PHOSPHATE INJ 4 MG/1 ML VIAL IV PRN (18:30)
[2017-10-05] MEDS: MAGNESIUM OXIDE 400 MG TABLET PO SCH (19:36)
[2017-10-05] MEDS: LORAZEPAM 0.5 MG TABLET PO PRN (19:36)
[2017-10-05 20:03] LABS: CREATINE KINASE MB 0.39 ng/mL (<4.55); TROPONIN I 0.092 ng/mL
[2017-10-05] MEDS ORDERED: OXYCODONE-ACETAMINOPHEN 5-325 MG TABLET PO PRN (20:39)
--- NOTE | 2017-10-05 20:45 | PDOC CONSULTATION ---
Consultation Consult Date: 10/05/17 Attending physician:: ELISABETH BELLA Consult reason:: Hypotension, tachycardia History of Present Illness Admission Date/PCP: 10/05/17 12:50 ELISABETH BELLA MD Patient complains of: Marked fatigue and tiredness History of Present Illness: VIPUL SCHMITZ is a 67 year old female with a stage IV bladder cancer status post ureteral obstructions status post bilateral nephrostomy tubes placed in the [place] history of the electrolytes imbalance with the history of the hypo- parathyroidism and hypocalcemia history of the coronary artery disease status post CABG and the pacemaker placement and congestive heart failure with currently getting chemotherapy with the metastatic bone disease noticed more nausea or vomiting since last couple of days and feeling very weak and dehydratedAnd in the emergency department patient was hypotensive with the systolic blood pressure was 80 and patients was tachycardic and patient hemoglobin was only 7.3 was running normally 9.5 with the oncologist's office in couple of weeks Patients received IV fluids and IV antibiotic broad-spectrum started due to the elevated white count with possible underlying sepsis Patient's denied any chest pain denied any shortness of the breath Patient's recently see a dock superintendent in [facility] for the hypocalcemia and also see a Dr. Hudson. Patient was seen with Dr. Bella in the intensive care unit. She was noted to be quite a bit short of breath and somewhat hypotensive. Patient also had a high-grade fever with chills while receiving first unit of blood. Patient has known history of CAD, CHF. Patient however denied any ongoing chest pain. Her troponin I was noted to be however in the suggestive range. Electrocardiogram did show some ST-T wave changes. While on the floor, Dr. Bella called [facility] and spoke with assistant professor of mathematics.. They felt that given patient's stage IV cancer, she would not be a candidate for any invasive or aggressive coronary interventions therefore it was decided to keep the patient here at [facility]. Patient's is currently a full code Past Medical History Cardiac Medical History: Reports: Congestive Heart Failure, Coronary Artery Disease, Hyperlipidema, Hypertension - ON MEDS,TRIPLE BYPASS Denies: Myocardial Infarction Pulmonary Medical History: Reports: Chronic Obstructive Pulmonary Disease (COPD) , Sleep Apnea Denies: Asthma, Bronchitis, Pneumonia Neurological Medical History: Denies: Seizures Renal/ Medical History: Reports: Chronic Kidney Disease GI Medical History: Reports: Gastroesophageal Reflux Disease Musculoskeltal Medical History: Reports: Arthritis Psychiatric Medical History: Reports: Depression Hematology: Reports: Anemia Past Surgical History Past Surgical History: Reports: Cardiac Catheterization, Hysterectomy Social History Information Source: Patient Lives with: Alone Smoking Status: Never Smoker Number of Years Smokin Last Time Smoked: 2006 Frequency of Alcohol Use: None Hx Recreational Drug Use: No Drugs: None Hx Prescription Drug Abuse: No - Advance Directive Resuscitation Status: Full Code Surrogate healthcare decision maker:: Patient sister is the surrogate decision-maker Family History Family History: Reviewed & Not Pertinent Parental Family History Reviewed: Yes Children Family History Reviewed: Yes Sibling(s) Family History Reviewed.: Yes Medication/Allergy Home Medications: Atorvastatin Calcium [Lipitor 80 mg Tablet] 80 mg PO DAILY 10/05/17 Budesonide/Formoterol Fumarate [Symbicort 80-4.5 Mcg Inhaler] 2 puff IH BID Dronabinol [Marinol 2.5 mg Capsule] 2.5 mg PO BID 10/05/17 Ergocalciferol (Vitamin D2) [Drisdol 50,000 Unit (1.25MG) Capsule] 50,000 unit PO Q2D 10/05/17 Lorazepam [Ativan 0.5 mg Tablet] 0.5 mg PO Q6HP PRN 10/05/17 Magnesium Oxide [Mag-Ox 400 mg Tablet] 400 mg PO BID 10/05/17 Phosphorus #1 [K-Phos Neutral 250 mg Tablet] 250 mg PO QID 10/05/17 Tiotropium [place] [Spiriva Respimat] 2 puff IH DAILY 10/05/17 Allergies/Adverse Reactions: codeine Allergy (Severe, Verified 10/05/17 07:47) N AND V vancomycin Allergy (Severe, Verified 10/05/17 07:47) Anaphylaxis hydrocodone Allergy (Verified 10/05/17 07:47) VOMITING oxycodone Allergy (Verified 10/05/17 07:47) VOMITING Review of Systems Review of Systems: Please see history of present illness and past medical history as wall. Constitutional: No fever or chills reported. Patient noted to have fever and chills in the unit. Patient has marked fatigue and tiredness. Head : No recent chronic headaches, recent head injury. Eyes: No recent eye pain, diplopia, redness, discharge, acute visual changes. Ears: No recent chronic ear pain, acute hearing loss, ear discharge. Oral cavity: No recent ulcerations, bleeding, oral cavity discomfort. Neck: No recent acute neck pain reported. Hematologic: No recent easy bruising or bleeding. Lymphatic: No recent lymph node enlargement reported. Cardiovascular system review: See history of present illness. Respiratory system review: No hemoptysis or blood clots in the lungs reported.Shortness of breath on exertion Gastrointestinal system review: Negative for any recent acute hematemesis, melena. Genitourinary system review: No recent acute or chronic hematuria, flank pain, UTI etc. reported. Skin system review: Negative for any recent abnormal bruising, no rash, no pruritus reported. Neurologic: No prior history of strokes, mini strokes, seizure disorder. Psychologic: No history of major psychosis or major depression reported. History of minor depression. Musculoskeletal: Minor aches and pains reported. No acute joint swelling reported. Generalized weakness and some falls reported Endocrine: No recent polyuria, polydipsia, recent heat or cold intolerance. Physical Exam Vital Signs: Temp Pulse Resp BP Pulse Ox 102.2 F H 116 H 32 H 81/56 L 95 10/05/17 18:00 10/05/17 18:00 10/05/17 18:01 10/05/17 18:00 10/05/17 18:01 Intake & Output 10/04/17 10/05/17 10/06/17 06:59 06:59 06:59 Intake Total 494 Output Total 300 Balance 194 Weight 64.9 kg Exam: GENERAL: well-nourished and in no acute distress. Alert and oriented x3 HEAD: Atraumatic, normocephalic. EYES: Pupils equal round and reactive to light, extraocular movements intact, sclera anicteric, conjunctiva are normal. ENT: TMs normal, nares patent, oropharynx clear without exudates. Moist mucous membranes. No oral ulcerations or bleeding gums noted NECK: supple without lymphadenopathy. Trachea is central. No cervical or axillary lymphadenopathy noted. Carotids are 2+, JVD WNL LUNGS: Respiration seems nonlabored, no significant accessory muscle action noted. Bilateral fine crackles and bibasilar mild tenderness noted. CHEST: Palpation of the chest wall shows no significant chest wall tenderness. HEART: [place] [employer], No PSH, 1/6 JONATHAN aortic area, 1/6 wallace systolic murmur mitral area, no rubs, no gallops. ABDOMEN: Soft, no significant tenderness appreciated, normoactive bowel sounds. No guarding, no rebound. No rigidity noted . No masses appreciated. Abdomen seems mildly distended. EXTREMITIES: Pedal pulses are 1-2+, no calf tenderness noted. No clubbing or cyanosis. 1+ pedal edema noted NEUROLOGICAL: Focused neurological exam showed no significant neurologic deficit. Normal speech, no focal weakness appreciated. PSYCH: Normal mood, normal affect. Judgment and insight within normal limits. SKIN: No significant ecchymosis, skin is noted to be warm. MUSCULOSKELETAL EXAM: No significant acute joint swelling noted. Results Laboratory Results: 10/05/17 10/05/17 10/05/17 13:15 13:26 13:26 Carbonic Acid HCO3/H2CO3 Ratio ABG pH ABG pCO2 ABG pO2 ABG HCO3 ABG O2 Saturation ABG Base Excess FiO2 Lactic Acid 0.8 Magnesium 1.7 Stool Occult Blood NEGATIVE 10/05/17 17:33 Carbonic Acid 0.81 L HCO3/H2CO3 Ratio 24:1 ABG pH 7.49 H ABG pCO2 26.8 L ABG pO2 91.8 ABG HCO3 20.1 ABG O2 Saturation 97.7 ABG Base Excess -2.8 FiO2 2L Lactic Acid Magnesium Stool Occult Blood 10/05/17 10/05/17 10/05/17 13:26 13:26 16:54 Creatine Kinase 134 145 H CK-MB (CK-2) 0.93 Troponin I 0.148 10/05/17 16:54 Creatine Kinase CK-MB (CK-2) 0.39 Troponin I 0.092 EKG Comments: Sinus tachycardia with ventricular paced beats. Subsequently noted to have sinus tachycardia with left bundle branch block pattern. Telemetry strips also showed a short run of wide-complex tachycardia, possibly ventricular tachycardia Impressions: Abdomen/Pelvis CT 10/05/17 09:56 IMPRESSION: Bilateral nephrostomy tubes replacing renal stents. Apparent poorly defined mass just inferior to the right kidney along the inferior vena cava. Increased since previous. No bowel obstruction. Markedly thick-walled bladder. Extensive bony metastases. Interval development of ascites. Chest CT 10/05/17 09:56 IMPRESSION: Bilateral nephrostomy tubes replacing renal stents. Apparent poorly defined mass just inferior to the right kidney along the inferior vena cava. Increased since previous. No bowel obstruction. Markedly thick-walled bladder. Extensive bony metastases. Interval development of ascites. Chest X-Ray 10/05/17 17:27 IMPRESSION: CARDIAC ENLARGEMENT. VASCULAR CONGESTION. Deterioration from previous. Assessment & Plan - Diagnosis (1) Non-STEMI (non-ST elevated myocardial infarction) Is this a current diagnosis for this admission?: Yes (2) Congestive heart failure Qualifiers: Heart failure type: unspecified Heart failure chronicity: acute on chronic Qualified Code(s): I50.9 - Heart failure, unspecified Is this a current diagnosis for this admission?: Yes (3) Coronary artery disease Qualifiers: Coronary Disease-Associated Artery/Lesion type: [place] artery Is this a current diagnosis for this admission?: Yes (4) Elevated troponin Is this a current diagnosis for this admission?: Yes (5) Hypotension Qualifiers: Hypotension type: unspecified hypotension type Qualified Code(s): I95.9 - Hypotension, unspecified Is this a current diagnosis for this admission?: Yes (6) Malignant neoplasm metastatic from bladder Is this a current diagnosis for this admission?: Yes - Notes Notes: Patient noted to be critically ill, and CHF. Have ordered a stat echo which is pending. Have ordered digoxin 0.25 mg IV now and to be repeated in 4 hours. Overall prognosis is on the poor side. After discussion with primary care attending, attempts are made for tertiary care transfer however it was declined as tertiary care felt that nothing more could be done to improve her overall prognosis as patient has stage IV cancer. Non-STEMI: Most likely related to supply demand mismatch from hypotension, tachycardia. Patient does have known CAD. At this point treat with aggressive risk factor modification and medical management. Patient felt not a candidate for aggressive intervention due to significant other comorbid condition. Patient also has severe anemia. CHF: Most likely acute on chronic precipitated by possible sepsis, excess volume infusion. Exact etiology of CHF not clear however. Will order a 2D echo to evaluate underlying LV EF etc. Coronary artery disease: Patient is status post bypass surgery. Currently without any active chest pain. Troponin I elevation: This is in the non-STEMI range most likely type II related to supply demand mismatch. Hypotension: Recommend Tevin-Synephrine drip or vasopressin drip if needed for hypotension to maintain systolic above 90 mmHg and mean pressure above 60. Malignant neoplasm metastatic from bladder: Patient is seeing oncologist. Will also benefit from a urological consultation. - Time Time Spent: 50 to 70 Minutes - CODE STATUS was discussed, patient remains full code. Surrogate decision-maker unchanged. Multiple medical problems were addressed. More than 50% of the time spent coordinating care, discussing management plans with involved caregivers. Management plans discussed with involved personnels. Medical decision making was of moderate to high complexity , patient's has multiple comorbidities. Medications reviewed and adjusted accordingly: Yes
[2017-10-05 21:30] LABS: APPEARANCE,URINE SLIGHTLY-CLOUDY; BILIRUBIN,URINE NEGATIVE (NEGATIVE); COLOR,URINE YELLOW; GLUCOSE, URINE NEGATIVE (NEGATIVE); KETONES,URINE NEGATIVE (NEGATIVE); LEUKOCYTE ESTERASE,URINE MODERATE (NEGATIVE); NITRITE,URINE NEGATIVE (NEGATIVE); PROTEIN,URINE 100 mg/dL (NEGATIVE); UROBILINOGEN,URINE NEGATIVE mg/dL (<2.0)
[2017-10-05] MEDS ORDERED: POTASSIUM CHLORIDE 20 MEQ/50 ML RTU IV ONE (22:00)
[2017-10-05] MEDS: ACETAMINOPHEN 325 MG TABLET PO PRN (22:33)
[2017-10-05] MEDS: PIPERACILLIN SODIUM/TAZOBACTAM 3.375 GM in NORMAL SALINE 100 ML IV SCH ×2 (22:34→23:17)
[2017-10-05] MEDS: TIOTROPIUM BROMIDE DPI 5 CAP/KIT (18 MCG/CAP) IH SCH (22:44)
[2017-10-05] MEDS: LEVALBUTEROL HCL NEB 1.25 MG/3 ML AMPUL NEB SCH (22:50)
--- NOTE | 2017-10-06 00:04 | EKG REPORT ---
SEVERITY:- ABNORMAL ECG - SINUS TACHYCARDIA LEFT BUNDLE BRANCH BLOCK : Confirmed by: Arielle Youngblood MD 06-Oct-2017 00:03:25
--- NOTE | 2017-10-06 00:04 | EKG REPORT ---
SEVERITY:- ABNORMAL ECG - VENTRICULAR-PACED COMPLEXES : Confirmed by: Arielle Youngblood MD 06-Oct-2017 00:03:33
[2017-10-06] MEDS ORDERED: POTASSIUM CHLORIDE 20 MEQ/50 ML RTU IV ONE (02:00)
[2017-10-06] MEDS: LEVALBUTEROL HCL NEB 1.25 MG/3 ML AMPUL NEB SCH ×4 (02:11→20:04)
[2017-10-06 02:35] LABS: CREATINE KINASE MB 0.25 ng/mL (<4.55); TROPONIN I 0.064 ng/mL
[2017-10-06] MEDS: PIPERACILLIN SODIUM/TAZOBACTAM 3.375 GM in NORMAL SALINE 100 ML IV SCH ×3 (05:59→17:21)
[2017-10-06 06:07] LABS: ABSOLUTE MONOCYTES (AUTO) 0.6 10^3/uL (0.1-1.4); ABSOLUTE NEUT (AUTO) 9.8 10^3/uL (1.7-8.2); BASOPHILS % (AUTO) 0.3 % (0-2); EOSINOPHILS % (AUTO) 0.1 % (0-6); LYMPHOCYTES % (AUTO) 8.8 % (13-45); MEAN CORPUSCULAR HEMOGLOBIN 28.2 pg (27.0-33.4); MEAN CORPUSCULAR HGB CONC 33.5 g/dL (32.0-36.0); MEAN CORPUSCULAR VOLUME 84 fl (80-97); MONOCYTES % (AUTO) 5.1 % (3-13); PLATELET COUNT 215 10^3/uL (150-450); RED BLOOD COUNT 2.73 10^6/uL (3.72-5.28); RED CELL DISTRIBUTION WIDTH 18.1 % (11.5-14.0); SEGMENTED NEUTROPHILS % (AUTO) 85.7 % (42-78); TOTAL CELLS COUNTED % (AUTO) 100 %; WHITE BLOOD COUNT 11.5 10^3/uL (4.0-10.5)
[2017-10-06 06:08] LABS: HEMOGLOBIN 7.7 g/dL (12.0-15.5)
[2017-10-06 06:46] LABS: ALANINE AMINOTRANSFERASE 19 U/L (9-52); ALBUMIN 2.5 g/dL (3.5-5.0); ANION GAP 10 (5-19); ASPARTATE AMINO TRANSFERASE 124 U/L (14-36); BILIRUBIN,DIRECT 0.4 mg/dL (0.0-0.4); BILIRUBIN,TOTAL 0.6 mg/dL (0.2-1.3); BLOOD UREA NITROGEN 14 mg/dL (7-20); CALCIUM 7.5 mg/dL (8.4-10.2); CARBON DIOXIDE 21 mmol/L (22-30); CHLORIDE 108 mmol/L (98-107); GLUCOSE 117 mg/dL (75-110); NEONATAL BILIRUBIN RESULT 0.3 mg/dL (0.1-1.1); SODIUM 139.4 mmol/L (137-145); TOTAL PROTEIN 4.9 g/dL (6.3-8.2)
[2017-10-06 06:57] LABS: ALKALINE PHOSPHATASE 2318 U/L (38-126); POTASSIUM 4.2 mmol/L (3.6-5.0)
--- NOTE | 2017-10-06 08:14 | PDOC CONSULTATION ---
Consultation Consult Date: 10/06/17 Attending physician:: ELISABETH DORADO Consult reason:: Patient with known stage IV urothelial carcinoma, here with hypertension, weakness, anemia History of Present Illness Admission Date/PCP: 10/05/17 12:50 ELISABETH DORADO MD Patient complains of: Hypertension, weakness, anemia, fall History of Present Illness: VIPUL SCHMITZ is a 67 year old female with known history of stage IV urothelial carcinoma, with complete bladder outlet obstruction, bilateral nephrostomy tubes, presents with 3-4 day history of increasing weakness, shortness of breath, ultimately she was barely unable to get out of bed and had a fall, brought in after the fall, was found to be hypotensive, tachycardic, appearance of sepsis, treated with broad-spectrum antibiotics along with aggressive fluid hydration. Hemoglobin was in the 7 range upon admission. Of note, patient was due for restaging CT imaging after 4 cycles of immunotherapy given over the last few months. Restaging CT indicates that there is some new pleural effusions as well as ascites, there does appear to be increased fullness along the area of the right kidney, and an area of lymphadenopathy compared to previous CT done 3 months prior. She says up to the last week she was feeling generally well getting around herself and eating and drinking appropriately. She was placed in the ICU, upon getting the first unit of blood she began having chills and rigors as well as fever, she also had to be placed on a short course of pressors, ultimately overnight she was able to get the second unit of blood with premedication with Benadryl and steroids, she was able to get continued antibiotics and hydration through the night. Today she looks much better, off pressors, sitting up in bed in eating a little bit of breakfast. 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 GI Medical History: Reports: Gastroesophageal Reflux Disease Musculoskeltal Medical History: Reports: Arthritis Psychiatric Medical History: Reports: Depression Hematology: Reports: Anemia Past Surgical History Past Surgical History: Reports: Cardiac Catheterization, Hysterectomy, Other - Bilateral nephrostomy tube placement, cystoscopy with biopsy Social History Information Source: Patient Lives with: Alone Smoking Status: Never Smoker Number of Years Smokin Last Time Smoked: 2006 Frequency of Alcohol Use: None Hx Recreational Drug Use: No Drugs: None Hx Prescription Drug Abuse: No - Advance Directive Resuscitation Status: Full Code Family History Family History: Reviewed & Not Pertinent Parental Family History Reviewed: Yes Children Family History Reviewed: Yes Sibling(s) Family History Reviewed.: Yes Medication/Allergy Home Medications: Atorvastatin Calcium [Lipitor 80 mg Tablet] 80 mg PO DAILY 10/05/17 Budesonide/Formoterol Fumarate [Symbicort 80-4.5 Mcg Inhaler] 2 puff IH BID Dronabinol [Marinol 2.5 mg Capsule] 2.5 mg PO BID 10/05/17 Ergocalciferol (Vitamin D2) [Drisdol 50,000 Unit (1.25MG) Capsule] 50,000 unit PO Q2D 10/05/17 Lorazepam [Ativan 0.5 mg Tablet] 0.5 mg PO Q6HP PRN 10/05/17 Magnesium Oxide [Mag-Ox 400 mg Tablet] 400 mg PO BID 10/05/17 Phosphorus #1 [K-Phos Neutral 250 mg Tablet] 250 mg PO QID 10/05/17 Tiotropium Kyle [Spiriva Respimat] 2 puff IH DAILY 10/05/17 Allergies/Adverse Reactions: codeine Allergy (Severe, Verified 10/05/17 07:47) N AND V vancomycin Allergy (Severe, Verified 10/05/17 07:47) Anaphylaxis hydrocodone Allergy (Verified 10/05/17 07:47) VOMITING oxycodone Allergy (Verified 10/05/17 07:47) VOMITING Review of Systems Constitutional: PRESENT: fatigue, fever(s), weakness, weight loss Cardiovascular: PRESENT: dyspnea on exertion, orthropnea Gastrointestinal: PRESENT: bloating, nausea Musculoskeletal: PRESENT: back pain Neurological: ABSENT: abnormal gait, abnormal speech, confusion, dizziness, focal weakness, syncope Physical Exam Vital Signs: Temp Pulse Resp BP Pulse Ox 98.1 F 77 24 H 109/55 L 97 10/06/17 06:00 10/06/17 04:46 10/06/17 06:01 10/06/17 06:00 10/06/17 06:01 Intake & Output 10/05/17 10/06/17 10/07/17 06:59 06:59 06:59 Intake Total 944 Output Total 800 Balance 144 Weight 66.4 kg General appearance: PRESENT: no acute distress, well-developed, well-nourished Head exam: PRESENT: atraumatic, normocephalic Eye exam: PRESENT: conjunctiva pink, EOMI, PERRLA. ABSENT: scleral icterus Ear exam: PRESENT: normal external ear exam Mouth exam: PRESENT: moist, tongue midline Neck exam: ABSENT: carotid bruit, JVD, lymphadenopathy, thyromegaly Respiratory exam: PRESENT: clear to auscultation zaida. ABSENT: rales, rhonchi, wheezes Cardiovascular exam: PRESENT: RRR. ABSENT: diastolic murmur, rubs, systolic murmur Pulses: PRESENT: normal dorsalis pedis pul Vascular exam: PRESENT: normal capillary refill GI/Abdominal exam: PRESENT: normal bowel sounds, soft. ABSENT: distended, guarding, mass, organolmegaly, rebound, tenderness Rectal exam: PRESENT: deferred Extremities exam: PRESENT: full ROM. ABSENT: calf tenderness, clubbing, pedal edema Neurological exam: PRESENT: alert, awake, oriented to person, oriented to place , oriented to time, oriented to situation, CN II-XII grossly intact. ABSENT: motor sensory deficit Psychiatric exam: PRESENT: appropriate affect, normal mood. ABSENT: homicidal ideation, suicidal ideation Skin exam: PRESENT: dry, intact, warm. ABSENT: cyanosis, rash Results Laboratory Results: 10/06/17 05:50 10/06/17 05:50 10/05/17 10/05/17 10/05/17 13:15 13:26 13:26 WBC RBC Hgb Hct MCV MCH MCHC RDW Plt Count Seg Neutrophils % Lymphocytes % Monocytes % Eosinophils % Basophils % Absolute Neutrophils Absolute Lymphocytes Absolute Monocytes Absolute Eosinophils Absolute Basophils Carbonic Acid HCO3/H2CO3 Ratio ABG pH ABG pCO2 ABG pO2 ABG HCO3 ABG O2 Saturation ABG Base Excess FiO2 Sodium Potassium Chloride Carbon Dioxide Anion Gap BUN Creatinine Est GFR ( Amer) Est GFR (Non-Af Amer) Glucose Lactic Acid 0.8 Calcium Magnesium 1.7 Total Bilirubin AST ALT Alkaline Phosphatase Total Protein Albumin Urine Color Urine Appearance Urine pH Ur Specific [place] Urine Protein Urine Glucose (UA) Urine Ketones Urine Blood Urine Nitrite Ur Leukocyte Esterase Stool Occult Blood NEGATIVE 10/05/17 10/05/17 10/06/17 17:33 21:20 05:50 WBC 11.5 H RBC 2.73 L Hgb 7.7 L Hct 23.0 L MCV 84 MCH 28.2 MCHC 33.5 RDW 18.1 H Plt Count 215 Seg Neutrophils % 85.7 H Lymphocytes % 8.8 L Monocytes % 5.1 Eosinophils % 0.1 Basophils % 0.3 Absolute Neutrophils 9.8 H Absolute Lymphocytes 1.0 Absolute Monocytes 0.6 Absolute Eosinophils 0.0 Absolute Basophils 0.0 Carbonic Acid 0.81 L HCO3/H2CO3 Ratio 24:1 ABG pH 7.49 H ABG pCO2 26.8 L ABG pO2 91.8 ABG HCO3 20.1 ABG O2 Saturation 97.7 ABG Base Excess -2.8 FiO2 2L Sodium Potassium Chloride Carbon Dioxide Anion Gap BUN Creatinine Est GFR ( Amer) Est GFR (Non-Af Amer) Glucose Lactic Acid Calcium Magnesium Total Bilirubin AST ALT Alkaline Phosphatase Total Protein Albumin Urine Color YELLOW Urine Appearance SLIGHTLY-CLOUDY Urine pH 6.0 Ur Specific [place] 1.030 Urine Protein 100 H Urine Glucose (UA) NEGATIVE Urine Ketones NEGATIVE Urine Blood SMALL H Urine Nitrite NEGATIVE Ur Leukocyte Esterase MODERATE H Stool Occult Blood 10/06/17 05:50 WBC RBC Hgb Hct MCV MCH MCHC RDW Plt Count Seg Neutrophils % Lymphocytes % Monocytes % Eosinophils % Basophils % Absolute Neutrophils Absolute Lymphocytes Absolute Monocytes Absolute Eosinophils Absolute Basophils Carbonic Acid HCO3/H2CO3 Ratio ABG pH ABG pCO2 ABG pO2 ABG HCO3 ABG O2 Saturation ABG Base Excess FiO2 Sodium 139.4 Potassium 4.2 Chloride 108 H Carbon Dioxide 21 L Anion Gap 10 BUN 14 Creatinine 0.78 Est GFR ( Amer) > 60 Est GFR (Non-Af Amer) > 60 Glucose 117 H Lactic Acid Calcium 7.5 L Magnesium 1.7 Total Bilirubin 0.6 AST 124 H ALT 19 Alkaline Phosphatase 2318 H Total Protein 4.9 L Albumin 2.5 L Urine Color Urine Appearance Urine pH Ur Specific [place] Urine Protein Urine Glucose (UA) Urine Ketones Urine Blood Urine Nitrite Ur Leukocyte Esterase Stool Occult Blood 10/05/17 10/05/17 10/05/17 13:26 13:26 16:54 Creatine Kinase 134 145 H CK-MB (CK-2) 0.93 Troponin I 0.148 NT-Pro-B Natriuret Pep 10/05/17 10/06/17 10/06/17 16:54 01:01 01:01 Creatine Kinase 118 CK-MB (CK-2) 0.39 0.25 Troponin I 0.092 0.064 NT-Pro-B Natriuret Pep 10/06/17 06:05 Creatine Kinase CK-MB (CK-2) Troponin I NT-Pro-B Natriuret Pep 08230 H Impressions: Abdomen/Pelvis CT 10/05/17 09:56 IMPRESSION: Bilateral nephrostomy tubes replacing renal stents. Apparent poorly defined mass just inferior to the right kidney along the inferior vena cava. Increased since previous. No bowel obstruction. Markedly thick-walled bladder. Extensive bony metastases. Interval development of ascites. Chest CT 10/05/17 09:56 IMPRESSION: Bilateral nephrostomy tubes replacing renal stents. Apparent poorly defined mass just inferior to the right kidney along the inferior vena cava. Increased since previous. No bowel obstruction. Markedly thick-walled bladder. Extensive bony metastases. Interval development of ascites. Chest X-Ray 10/05/17 17:27 IMPRESSION: CARDIAC ENLARGEMENT. VASCULAR CONGESTION. Deterioration from previous. Status: Image reviewed by me Assessment & Plan - Diagnosis (1) Malignant neoplasm metastatic from bladder Is this a current diagnosis for this admission?: Yes Plan: Stage IV urothelial carcinoma, today had long discussion about CT findings, discussed further options. If patient continues to improve and is able to get out of bed and move around a little bit, she would be appropriate performance status for continued therapy as an outpatient. We would continue immunotherapy , she had a prolonged break after the first cycle of immunotherapy compared to the next cycle, there may not have been enough time for a T-cell response. So would be reasonable to continue if her performance status improves over the next few days. We discussed that if she remains bedbound, then further treatment would not be reasonable, then we would consider hospice at that point. She seems very agreeable to this approach. We had a long discussion about CODE STATUS, I recommended a DNR status, at present she wants to talk to her family so she will discuss this with family. I will talk to her tomorrow morning about this. Today spent greater than 70 minutes in discussion and coordination of care (2) Anemia Qualifiers: Anemia type: bone marrow failure Bone marrow failure anemia type: pancytopenia, antineoplastic chemotherapy-induced Qualified Code(s): D61.810 - Antineoplastic chemotherapy induced pancytopenia; T45.1X5A - Adverse effect of antineoplastic and immunosuppressive drugs, initial encounter; T45.1X5A - Adverse effect of antineoplastic and immunosuppressive drugs, initial encounter Is this a current diagnosis for this admission?: Yes Plan: Anemia secondary to neoplasm, has not had much bleeding from the nephrostomy tube so do not think it is blood loss anemia. Status post 1 unit of packed red blood cells, we could consider 1 more unit if hypotension continues. We will follow this through the weekend. - Time Time Spent: Greater than 70 Minutes - Inpatient Certification Based on my medical assessment, after consideration of the patient's comorbidities, presenting symptoms, or acuity I expect that the services needed warrant INPATIENT care.: Yes I certify that my determination is in accordance with my understanding of Medicare's requirements for reasonable and necessary INPATIENT services [42 CFR 412.3e].: Yes Medical Necessity: Need Close Monitoring Due to Risk of Patient Decompensation, Need For IV Fluids, Need For Continuous Telemetry Monitoring, Need for IV Antibiotics, Risk of Complication if Not Cared For in Hospital
[2017-10-06] MEDS ORDERED: (PENDING PHARMACY ID) (Tiotropium Bromide [Spiriva Respimat] 2 PUFF) IH SCH (10:00)
[2017-10-06] MEDS: FAMOTIDINE INJ/PF 20 MG/2 ML SDV IV SCH ×2 (12:00→17:21)
[2017-10-06] MEDS: BUDESONIDE/FORMOTEROL 80-4.5 MCG 60 PUFF/6.9 GM MDI IH SCH ×2 (12:00→19:46)
[2017-10-06] MEDS: MAGNESIUM OXIDE 400 MG TABLET PO SCH ×2 (12:00→17:21)
[2017-10-06] MEDS: LEVOFLOXACIN 500 MG/D5W RTU 500 MG/100 ML RTUPB IV SCH (12:02)
--- NOTE | 2017-10-06 12:56 | PDOC PROGRESS REPORT ---
Subjective Progress Note for:: 10/06/17 Subjective:: Patient is currently feeling much better Patient's denied any chest pain denied any shortness of the breath Patients off the vasopressor Since receiving the second unit of the blood without any problems and the reactions Patient's denied any other symptoms this morning's Reason For Visit: HYPOTENSION,SEPSIS,ANEMIA Physical Exam Vital Signs: Temp Pulse Resp BP Pulse Ox 98.1 F 82 51 H 123/65 98 10/06/17 06:00 10/06/17 08:24 10/06/17 11:45 10/06/17 11:45 10/06/17 11:45 Intake & Output 10/05/17 10/06/17 10/07/17 06:59 06:59 06:59 Intake Total 1044 Output Total 800 400 Balance 244 -400 Weight 66.4 kg General appearance: PRESENT: no acute distress, well-developed, well-nourished Head exam: PRESENT: atraumatic, normocephalic Eye exam: PRESENT: conjunctiva pink, EOMI, PERRLA. ABSENT: scleral icterus Ear exam: PRESENT: normal external ear exam Mouth exam: PRESENT: moist, tongue midline Neck exam: PRESENT: full ROM. ABSENT: carotid bruit, JVD, lymphadenopathy, thyromegaly Respiratory exam: PRESENT: clear to auscultation zaida Cardiovascular exam: PRESENT: RRR. ABSENT: diastolic murmur, rubs, systolic murmur Pulses: PRESENT: normal dorsalis pedis pul, +2 pedal pulses bilateral Vascular exam: PRESENT: normal capillary refill GI/Abdominal exam: PRESENT: normal bowel sounds, soft. ABSENT: distended, guarding, mass, organolmegaly, rebound, tenderness Rectal exam: PRESENT: deferred Neurological exam: PRESENT: alert, awake, oriented to person, oriented to place , oriented to time, oriented to situation, CN II-XII grossly intact. ABSENT: motor sensory deficit Psychiatric exam: PRESENT: appropriate affect, normal mood. ABSENT: homicidal ideation, suicidal ideation Skin exam: PRESENT: dry, intact, warm. ABSENT: cyanosis, rash Results Laboratory Results: 10/06/17 05:50 10/06/17 05:50 10/05/17 10/05/17 10/05/17 13:15 13:26 13:26 WBC RBC Hgb Hct MCV MCH MCHC RDW Plt Count Seg Neutrophils % Lymphocytes % Monocytes % Eosinophils % Basophils % Absolute Neutrophils Absolute Lymphocytes Absolute Monocytes Absolute Eosinophils Absolute Basophils Carbonic Acid HCO3/H2CO3 Ratio ABG pH ABG pCO2 ABG pO2 ABG HCO3 ABG O2 Saturation ABG Base Excess FiO2 Sodium Potassium Chloride Carbon Dioxide Anion Gap BUN Creatinine Est GFR ( Amer) Est GFR (Non-Af Amer) Glucose Lactic Acid 0.8 Calcium Magnesium 1.7 Total Bilirubin AST ALT Alkaline Phosphatase Total Protein Albumin Urine Color Urine Appearance Urine pH Ur Specific [place] Urine Protein Urine Glucose (UA) Urine Ketones Urine Blood Urine Nitrite Ur Leukocyte Esterase Stool Occult Blood NEGATIVE 10/05/17 10/05/17 10/06/17 17:33 21:20 05:50 WBC 11.5 H RBC 2.73 L Hgb 7.7 L Hct 23.0 L MCV 84 MCH 28.2 MCHC 33.5 RDW 18.1 H Plt Count 215 Seg Neutrophils % 85.7 H Lymphocytes % 8.8 L Monocytes % 5.1 Eosinophils % 0.1 Basophils % 0.3 Absolute Neutrophils 9.8 H Absolute Lymphocytes 1.0 Absolute Monocytes 0.6 Absolute Eosinophils 0.0 Absolute Basophils 0.0 Carbonic Acid 0.81 L HCO3/H2CO3 Ratio 24:1 ABG pH 7.49 H ABG pCO2 26.8 L ABG pO2 91.8 ABG HCO3 20.1 ABG O2 Saturation 97.7 ABG Base Excess -2.8 FiO2 2L Sodium Potassium Chloride Carbon Dioxide Anion Gap BUN Creatinine Est GFR ( Amer) Est GFR (Non-Af Amer) Glucose Lactic Acid Calcium Magnesium Total Bilirubin AST ALT Alkaline Phosphatase Total Protein Albumin Urine Color YELLOW Urine Appearance SLIGHTLY-CLOUDY Urine pH 6.0 Ur Specific [place] 1.030 Urine Protein 100 H Urine Glucose (UA) NEGATIVE Urine Ketones NEGATIVE Urine Blood SMALL H Urine Nitrite NEGATIVE Ur Leukocyte Esterase MODERATE H Stool Occult Blood 10/06/17 05:50 WBC RBC Hgb Hct MCV MCH MCHC RDW Plt Count Seg Neutrophils % Lymphocytes % Monocytes % Eosinophils % Basophils % Absolute Neutrophils Absolute Lymphocytes Absolute Monocytes Absolute Eosinophils Absolute Basophils Carbonic Acid HCO3/H2CO3 Ratio ABG pH ABG pCO2 ABG pO2 ABG HCO3 ABG O2 Saturation ABG Base Excess FiO2 Sodium 139.4 Potassium 4.2 Chloride 108 H Carbon Dioxide 21 L Anion Gap 10 BUN 14 Creatinine 0.78 Est GFR ( Amer) > 60 Est GFR (Non-Af Amer) > 60 Glucose 117 H Lactic Acid Calcium 7.5 L Magnesium 1.7 Total Bilirubin 0.6 AST 124 H ALT 19 Alkaline Phosphatase 2318 H Total Protein 4.9 L Albumin 2.5 L Urine Color Urine Appearance Urine pH Ur Specific [place] Urine Protein Urine Glucose (UA) Urine Ketones Urine Blood Urine Nitrite Ur Leukocyte Esterase Stool Occult Blood 10/05/17 10/05/17 10/05/17 13:26 13:26 16:54 Creatine Kinase 134 145 H CK-MB (CK-2) 0.93 Troponin I 0.148 NT-Pro-B Natriuret Pep 10/05/17 10/06/17 10/06/17 16:54 01:01 01:01 Creatine Kinase 118 CK-MB (CK-2) 0.39 0.25 Troponin I 0.092 0.064 NT-Pro-B Natriuret Pep 10/06/17 06:05 Creatine Kinase CK-MB (CK-2) Troponin I NT-Pro-B Natriuret Pep 30493 H Impressions: Abdomen/Pelvis CT 10/05/17 09:56 IMPRESSION: Bilateral nephrostomy tubes replacing renal stents. Apparent poorly defined mass just inferior to the right kidney along the inferior vena cava. Increased since previous. No bowel obstruction. Markedly thick-walled bladder. Extensive bony metastases. Interval development of ascites. Chest CT 10/05/17 09:56 IMPRESSION: Bilateral nephrostomy tubes replacing renal stents. Apparent poorly defined mass just inferior to the right kidney along the inferior vena cava. Increased since previous. No bowel obstruction. Markedly thick-walled bladder. Extensive bony metastases. Interval development of ascites. Chest X-Ray 10/05/17 17:27 IMPRESSION: CARDIAC ENLARGEMENT. VASCULAR CONGESTION. Deterioration from previous. Assessment & Plan - Diagnosis (1) Hypotension Qualifiers: Hypotension type: unspecified hypotension type Qualified Code(s): I95.9 - Hypotension, unspecified Is this a current diagnosis for this admission?: Yes Plan: Currently all getting better off the vasopressor (2) Sepsis Qualifiers: Sepsis type: sepsis due to unspecified organism Qualified Code(s): A41.9 - Sepsis, unspecified organism Is this a current diagnosis for this admission?: Yes Plan: Continues to broad-spectrum IV antibiotic and continues to wait for the culture (3) Coronary artery disease Qualifiers: Coronary Disease-Associated Artery/Lesion type: [place] artery Is this a current diagnosis for this admission?: Yes Plan: Currently stable follow with the cardiology (4) Congestive heart failure Qualifiers: Heart failure type: unspecified Heart failure chronicity: acute on chronic Qualified Code(s): I50.9 - Heart failure, unspecified Is this a current diagnosis for this admission?: Yes Plan: Continues to monitor (5) Pacemaker Is this a current diagnosis for this admission?: Yes Plan: Consult with the cardiology (6) Hypocalcemia Is this a current diagnosis for this admission?: Yes Plan: Replace the calciums (7) Hypokalemia Is this a current diagnosis for this admission?: Yes Plan: Replace the potassium and check the magnesium well patient has significant electrolyte imbalance issues (8) Chronic kidney disease Qualifiers: Chronic kidney disease stage: stage 3 (moderate) Qualified Code(s): N18.3 - Chronic kidney disease, stage 3 (moderate) Is this a current diagnosis for this admission?: Yes Plan: Due to the obstructive uropathy currently all stable patient see Dr. 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 type: pancytopenia, antineoplastic chemotherapy-induced Qualified Code(s): D61.810 - Antineoplastic chemotherapy induced pancytopenia; T45.1X5A - Adverse effect of antineoplastic and immunosuppressive drugs, initial encounter; T45.1X5A - Adverse effect of antineoplastic and immunosuppressive drugs, initial encounter Is this a current diagnosis for this admission?: Yes Plan: Follow with the blind hanger no sign of any acute bleeding (10) Intractable vomiting with nausea Qualifiers: Vomiting type: unspecified Qualified Code(s): R11.2 - Nausea with vomiting , unspecified Is this a current diagnosis for this admission?: Yes Plan: Most likely due to the chemotherapy-induced (11) Malignant neoplasm metastatic from bladder Is this a current diagnosis for this admission?: Yes Plan: Patient had a CT scan of the chest and abdomen showing some new onset of the pleural effusion and some ascites will consult the oncology for further evaluations (12) Elevated troponin Is this a current diagnosis for this admission?: Yes (13) Pleural effusion Is this a current diagnosis for this admission?: Yes Plan: Repeat the chest x-ray in the morning - Time Time Spent with patient: 15-24 minutes Medications reviewed and adjusted accordingly: Yes Anticipated discharge: Home Within: Other - Inpatient Certification Medical Necessity: Need Close Monitoring Due to Risk of Patient Decompensation Post Hospital Care: D/C Cardiac Sonographer Documentation - Plan Summary Plan Summary: Patient is currently much improving Discussed with the patient and the patient's sister yesterday about the patient' s critical conditions and the CODE STATUS and that discussed with the puddler helper and the John Ace and suggest nothing they can offer and patients do not want to go to the [facility] continues to monitor the patient's
[2017-10-06 16:03] LABS: PRE-TRANSFUSION TOTAL BILI. 0.5 mg/dL (0.2-1.3)
[2017-10-06] MEDS: DOCUSATE SODIUM 100 MG CAPSULE PO SCH (17:21)
[2017-10-06] MEDS: ACETAMINOPHEN 325 MG TABLET PO PRN (17:44)
[2017-10-06] MEDS: LORAZEPAM 0.5 MG TABLET PO PRN (17:48)
[2017-10-06] MEDS: TIOTROPIUM BROMIDE DPI 5 CAP/KIT (18 MCG/CAP) IH SCH (23:48)
[2017-10-07] MEDS: PIPERACILLIN SODIUM/TAZOBACTAM 3.375 GM in NORMAL SALINE 100 ML IV SCH ×4 (00:13→17:08)
[2017-10-07] MEDS: NORMAL SALINE 1000 ML 1,000 ML IV PRN (00:48)
[2017-10-07] MEDS: LEVALBUTEROL HCL NEB 1.25 MG/3 ML AMPUL NEB SCH ×4 (01:59→20:01)
[2017-10-07 04:14] LABS: ABSOLUTE LYMPHOCYTES (AUTO) 0.8 10^3/uL (0.5-4.7); ABSOLUTE MONOCYTES (AUTO) 0.7 10^3/uL (0.1-1.4); ABSOLUTE NEUT (AUTO) 8.9 10^3/uL (1.7-8.2); BASOPHILS % (AUTO) 0.1 % (0-2); EOSINOPHILS % (AUTO) 0.1 % (0-6); HEMATOCRIT 23.6 % (36.0-47.0); HEMOGLOBIN 8.1 g/dL (12.0-15.5); LYMPHOCYTES % (AUTO) 7.6 % (13-45); MEAN CORPUSCULAR HEMOGLOBIN 28.8 pg (27.0-33.4); MEAN CORPUSCULAR HGB CONC 34.3 g/dL (32.0-36.0); MEAN CORPUSCULAR VOLUME 84 fl (80-97); MONOCYTES % (AUTO) 7.2 % (3-13); PLATELET COUNT 224 10^3/uL (150-450); RED BLOOD COUNT 2.82 10^6/uL (3.72-5.28); RED CELL DISTRIBUTION WIDTH 18.8 % (11.5-14.0); TOTAL CELLS COUNTED % (AUTO) 100 %; WHITE BLOOD COUNT 10.5 10^3/uL (4.0-10.5)
[2017-10-07 04:39] LABS: ALANINE AMINOTRANSFERASE 19 U/L (9-52); ALBUMIN 2.4 g/dL (3.5-5.0); ANION GAP 10 (5-19); ASPARTATE AMINO TRANSFERASE 85 U/L (14-36); BILIRUBIN,DIRECT 0.3 mg/dL (0.0-0.4); BILIRUBIN,TOTAL 0.3 mg/dL (0.2-1.3); BLOOD UREA NITROGEN 15 mg/dL (7-20); CALCIUM 7.8 mg/dL (8.4-10.2); CARBON DIOXIDE 22 mmol/L (22-30); CHLORIDE 108 mmol/L (98-107); GLUCOSE 111 mg/dL (75-110); SODIUM 139.6 mmol/L (137-145)
[2017-10-07 04:47] LABS: ALKALINE PHOSPHATASE 2207 U/L (38-126)
[2017-10-07] MEDS: ACETAMINOPHEN 325 MG TABLET PO PRN ×2 (04:55→09:56)
[2017-10-07] MEDS: DOCUSATE SODIUM 100 MG CAPSULE PO SCH ×2 (09:54→17:09)
[2017-10-07] MEDS: FAMOTIDINE INJ/PF 20 MG/2 ML SDV IV SCH ×2 (09:54→17:09)
[2017-10-07] MEDS: MAGNESIUM OXIDE 400 MG TABLET PO SCH ×2 (09:54→17:09)
[2017-10-07] MEDS: LEVOFLOXACIN 500 MG/D5W RTU 500 MG/100 ML RTUPB IV SCH (09:55)
[2017-10-07] MEDS: BUDESONIDE/FORMOTEROL 80-4.5 MCG 60 PUFF/6.9 GM MDI IH SCH ×2 (09:55→21:59)
--- NOTE | 2017-10-07 10:34 | PDOC PROGRESS REPORT ---
Subjective Progress Note for:: 10/07/17 Subjective:: Feels about the same, some increased myalgias today, had long discussion with pt and family about next steps of care, code status and pt agrees to DNR. At present, cont current therapy, not yet ready for comfort care measures. Discussed adding PT today and see if functional status improves over next 48 hours. Reason For Visit: HYPOTENSION,SEPSIS,ANEMIA Physical Exam Vital Signs: Temp Pulse Resp BP Pulse Ox 98.1 F 89 22 H 101/50 L 100 10/07/17 04:00 10/07/17 08:30 10/07/17 08:30 10/07/17 06:17 10/07/17 08:30 Intake & Output 10/06/17 10/07/17 10/08/17 06:59 06:59 06:59 Intake Total 1044 2419 Output Total 800 1395 100 Balance 244 1024 -100 Weight 66.4 kg 68.8 kg General appearance: PRESENT: no acute distress, well-developed, well-nourished Head exam: PRESENT: atraumatic, normocephalic Eye exam: PRESENT: conjunctiva pink, EOMI, PERRLA. ABSENT: scleral icterus Ear exam: PRESENT: normal external ear exam Mouth exam: PRESENT: moist, tongue midline Neck exam: ABSENT: carotid bruit, JVD, lymphadenopathy, thyromegaly Respiratory exam: PRESENT: clear to auscultation zaida. ABSENT: rales, rhonchi, wheezes Cardiovascular exam: PRESENT: RRR. ABSENT: diastolic murmur, rubs, systolic murmur Pulses: PRESENT: normal dorsalis pedis pul Vascular exam: PRESENT: normal capillary refill GI/Abdominal exam: PRESENT: normal bowel sounds, soft. ABSENT: distended, guarding, mass, organolmegaly, rebound, tenderness Rectal exam: PRESENT: deferred Extremities exam: PRESENT: full ROM. ABSENT: calf tenderness, clubbing, pedal edema Neurological exam: PRESENT: alert, awake, oriented to person, oriented to place , oriented to time, oriented to situation, CN II-XII grossly intact. ABSENT: motor sensory deficit Psychiatric exam: PRESENT: appropriate affect, normal mood. ABSENT: homicidal ideation, suicidal ideation Skin exam: PRESENT: dry, intact, warm. ABSENT: cyanosis, rash Results Laboratory Results: 10/07/17 03:51 10/07/17 03:51 10/07/17 10/07/17 03:51 03:51 WBC 10.5 RBC 2.82 L Hgb 8.1 L Hct 23.6 L MCV 84 MCH 28.8 MCHC 34.3 RDW 18.8 H Plt Count 224 Seg Neutrophils % 85.0 H Lymphocytes % 7.6 L Monocytes % 7.2 Eosinophils % 0.1 Basophils % 0.1 Absolute Neutrophils 8.9 H Absolute Lymphocytes 0.8 Absolute Monocytes 0.7 Absolute Eosinophils 0.0 Absolute Basophils 0.0 Sodium 139.6 Potassium 4.0 Chloride 108 H Carbon Dioxide 22 Anion Gap 10 BUN 15 Creatinine 0.77 Est GFR ( Amer) > 60 Est GFR (Non-Af Amer) > 60 Glucose 111 H Calcium 7.8 L Magnesium 1.6 Total Bilirubin 0.3 AST 85 H ALT 19 Alkaline Phosphatase 2207 H Total Protein 5.0 L Albumin 2.4 L 10/05/17 10/05/17 10/05/17 13:26 13:26 16:54 Creatine Kinase 134 145 H CK-MB (CK-2) 0.93 Troponin I 0.148 NT-Pro-B Natriuret Pep 10/05/17 10/06/17 10/06/17 16:54 01:01 01:01 Creatine Kinase 118 CK-MB (CK-2) 0.39 0.25 Troponin I 0.092 0.064 NT-Pro-B Natriuret Pep 10/06/17 10/07/17 06:05 03:51 Creatine Kinase CK-MB (CK-2) Troponin I NT-Pro-B Natriuret Pep 32661 H 8380 H Impressions: Abdomen/Pelvis CT 10/05/17 09:56 IMPRESSION: Bilateral nephrostomy tubes replacing renal stents. Apparent poorly defined mass just inferior to the right kidney along the inferior vena cava. Increased since previous. No bowel obstruction. Markedly thick-walled bladder. Extensive bony metastases. Interval development of ascites. Chest CT 10/05/17 09:56 IMPRESSION: Bilateral nephrostomy tubes replacing renal stents. Apparent poorly defined mass just inferior to the right kidney along the inferior vena cava. Increased since previous. No bowel obstruction. Markedly thick-walled bladder. Extensive bony metastases. Interval development of ascites. Chest X-Ray 10/05/17 17:27 IMPRESSION: CARDIAC ENLARGEMENT. VASCULAR CONGESTION. Deterioration from previous. Assessment & Plan - Diagnosis (1) Malignant neoplasm metastatic from bladder Is this a current diagnosis for this admission?: Yes Plan: As above, if functional status improves may consider continued Keytruda, no further staging needed as of now. Pt and family understands that if in next 48- 72 hours functional status does not improve that we would consider transitioning to comfort care measures/hospice. (2) Anemia Qualifiers: Anemia type: bone marrow failure Bone marrow failure anemia type: pancytopenia, antineoplastic chemotherapy-induced Qualified Code(s): D61.810 - Antineoplastic chemotherapy induced pancytopenia; T45.1X5A - Adverse effect of antineoplastic and immunosuppressive drugs, initial encounter; T45.1X5A - Adverse effect of antineoplastic and immunosuppressive drugs, initial encounter Is this a current diagnosis for this admission?: Yes Plan: Hb stable, BP stable, will not transfuse unless status worsens. - Time Time Spent with patient: 35 or more minutes - Inpatient Certification Based on my medical assessment, after consideration of the patient's comorbidities, presenting symptoms, or acuity I expect that the services needed warrant INPATIENT care.: Yes I certify that my determination is in accordance with my understanding of Medicare's requirements for reasonable and necessary INPATIENT services [42 CFR 412.3e].: Yes Medical Necessity: Need For IV Fluids, Need For Continuous Telemetry Monitoring , Risk of Complication if Not Cared For in Hospital
[2017-10-07] MEDS ORDERED: FENTANYL CITRATE INJ/PF 100 MCG/2 ML AMPUL IV PRN (14:14)
--- NOTE | 2017-10-07 15:37 | PDOC PROGRESS REPORT ---
Subjective Progress Note for:: 10/07/17 Subjective:: Patient was seen in ICU, she has stable for metastatic urothelial carcinoma with associated obstructive uropathy, status post bilateral nephrostomy tube placement, patient now agreeable to DNR status, admitted for the management of septic shock Reason For Visit: HYPOTENSION,SEPSIS,ANEMIA Physical Exam Vital Signs: Temp Pulse Resp BP Pulse Ox 98.8 F 86 20 114/53 L 100 10/07/17 12:00 10/07/17 14:21 10/07/17 14:21 10/07/17 13:47 10/07/17 15:26 Intake & Output 10/06/17 10/07/17 10/08/17 06:59 06:59 06:59 Intake Total 1044 2519 500 Output Total 800 1395 225 Balance 244 1124 275 Weight 66.4 kg 68.8 kg General appearance: PRESENT: no acute distress Eye exam: PRESENT: PERRLA Respiratory exam: PRESENT: clear to auscultation zaida Cardiovascular exam: PRESENT: +S1, +S2 GI/Abdominal exam: PRESENT: soft Neurological exam: PRESENT: alert Results Laboratory Results: 10/07/17 03:51 10/07/17 03:51 10/07/17 10/07/17 03:51 03:51 WBC 10.5 RBC 2.82 L Hgb 8.1 L Hct 23.6 L MCV 84 MCH 28.8 MCHC 34.3 RDW 18.8 H Plt Count 224 Seg Neutrophils % 85.0 H Lymphocytes % 7.6 L Monocytes % 7.2 Eosinophils % 0.1 Basophils % 0.1 Absolute Neutrophils 8.9 H Absolute Lymphocytes 0.8 Absolute Monocytes 0.7 Absolute Eosinophils 0.0 Absolute Basophils 0.0 Sodium 139.6 Potassium 4.0 Chloride 108 H Carbon Dioxide 22 Anion Gap 10 BUN 15 Creatinine 0.77 Est GFR ( Amer) > 60 Est GFR (Non-Af Amer) > 60 Glucose 111 H Calcium 7.8 L Magnesium 1.6 Total Bilirubin 0.3 AST 85 H ALT 19 Alkaline Phosphatase 2207 H Total Protein 5.0 L Albumin 2.4 L 10/05/17 10/05/17 10/05/17 13:26 13:26 16:54 Creatine Kinase 134 145 H CK-MB (CK-2) 0.93 Troponin I 0.148 NT-Pro-B Natriuret Pep 10/05/17 10/06/17 10/06/17 16:54 01:01 01:01 Creatine Kinase 118 CK-MB (CK-2) 0.39 0.25 Troponin I 0.092 0.064 NT-Pro-B Natriuret Pep 10/06/17 10/07/17 06:05 03:51 Creatine Kinase CK-MB (CK-2) Troponin I NT-Pro-B Natriuret Pep 92174 H 8380 H Impressions: Abdomen/Pelvis CT 10/05/17 09:56 IMPRESSION: Bilateral nephrostomy tubes replacing renal stents. Apparent poorly defined mass just inferior to the right kidney along the inferior vena cava. Increased since previous. No bowel obstruction. Markedly thick-walled bladder. Extensive bony metastases. Interval development of ascites. Chest CT 10/05/17 09:56 IMPRESSION: Bilateral nephrostomy tubes replacing renal stents. Apparent poorly defined mass just inferior to the right kidney along the inferior vena cava. Increased since previous. No bowel obstruction. Markedly thick-walled bladder. Extensive bony metastases. Interval development of ascites. Chest X-Ray 10/05/17 17:27 IMPRESSION: CARDIAC ENLARGEMENT. VASCULAR CONGESTION. Deterioration from previous. Assessment & Plan - Diagnosis (1) Septic shock Is this a current diagnosis for this admission?: Yes (2) Urothelial carcinoma Is this a current diagnosis for this admission?: Yes (3) Non-STEMI (non-ST elevated myocardial infarction) Is this a current diagnosis for this admission?: Yes - Plan Summary Plan Summary: Patient will be downgraded to telemetry floor, DNR status, poor prognosis
[2017-10-07] MEDS: LORAZEPAM 0.5 MG TABLET PO PRN (16:43)
[2017-10-07] MEDS ORDERED: LORAZEPAM 0.5 MG TABLET PO PRN (16:52)
--- NOTE | 2017-10-07 18:13 | PDOC PROGRESS REPORT ---
Subjective Progress Note for:: 10/06/17 Subjective:: Patient seems to be doing better with significant improvement. Pt is denying any chest arm or neck discomfort. Patient denying any PND, orthopnea. Patient denied any sustained palpitations, dizziness, syncope, near syncope. Patient denying any fever chills. Patient denying any other significant discomfort. Initially there was concern about blood transfusion reaction but subsequently patient received 1 more unit of blood with premedication without any transfusion reaction. 2D echo results were reviewed with the patient. Patient is maintaining sinus rhythm. Intermittent ventricular paced beats noted with a sensing. Review of systems: Rest review of systems negative. Medications: Medications have been reviewed. Reason For Visit: HYPOTENSION,SEPSIS,ANEMIA Physical Exam Vital Signs: Temp Pulse Resp BP Pulse Ox 98.3 F 86 35 H 117/51 L 90 L 10/07/17 16:00 10/07/17 14:21 10/07/17 17:00 10/07/17 16:43 10/07/17 16:42 Intake & Output 10/06/17 10/07/17 10/08/17 06:59 06:59 06:59 Intake Total 1044 2519 600 Output Total 800 1395 225 Balance 244 1124 375 Weight 66.4 kg 68.8 kg Exam: GENERAL: well-nourished and in no acute distress. Alert and oriented x3 HEAD: Atraumatic, normocephalic. EYES: Pupils equal round and reactive to light, extraocular movements intact, sclera anicteric, conjunctiva are normal. ENT: TMs normal, nares patent, oropharynx clear without exudates. Moist mucous membranes. No oral ulcerations or bleeding gums noted NECK: supple without lymphadenopathy. Trachea is central. No cervical or axillary lymphadenopathy noted. Carotids are 2+, JVD WNL LUNGS: Respiration seems nonlabored, no significant accessory muscle action noted. Bibasilar fine crackles are noted. No wheezes rales or rhonchi noted. No significant dullness noted on percussion. CHEST: Palpation of the chest wall shows no significant chest wall tenderness. 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 ABDOMEN: Soft, no significant tenderness appreciated, normoactive bowel sounds. No guarding, no rebound. No rigidity noted . No masses appreciated. EXTREMITIES: Pedal pulses are 1-2+, no calf tenderness noted. No clubbing or cyanosis. Trace pedal edema noted NEUROLOGICAL: Focused neurological exam showed no significant neurologic deficit. Normal speech, no focal weakness appreciated. PSYCH: Normal mood, normal affect. Judgment and insight within normal limits. SKIN: No significant ecchymosis, skin is noted to be warm. MUSCULOSKELETAL EXAM: No significant acute joint swelling noted. Results Laboratory Results: 10/07/17 03:51 10/07/17 03:51 10/07/17 10/07/17 03:51 03:51 WBC 10.5 RBC 2.82 L Hgb 8.1 L Hct 23.6 L MCV 84 MCH 28.8 MCHC 34.3 RDW 18.8 H Plt Count 224 Seg Neutrophils % 85.0 H Lymphocytes % 7.6 L Monocytes % 7.2 Eosinophils % 0.1 Basophils % 0.1 Absolute Neutrophils 8.9 H Absolute Lymphocytes 0.8 Absolute Monocytes 0.7 Absolute Eosinophils 0.0 Absolute Basophils 0.0 Sodium 139.6 Potassium 4.0 Chloride 108 H Carbon Dioxide 22 Anion Gap 10 BUN 15 Creatinine 0.77 Est GFR ( Amer) > 60 Est GFR (Non-Af Amer) > 60 Glucose 111 H Calcium 7.8 L Magnesium 1.6 Total Bilirubin 0.3 AST 85 H ALT 19 Alkaline Phosphatase 2207 H Total Protein 5.0 L Albumin 2.4 L 10/05/17 10/05/17 10/05/17 13:26 13:26 16:54 Creatine Kinase 134 145 H CK-MB (CK-2) 0.93 Troponin I 0.148 NT-Pro-B Natriuret Pep 10/05/17 10/06/17 10/06/17 16:54 01:01 01:01 Creatine Kinase 118 CK-MB (CK-2) 0.39 0.25 Troponin I 0.092 0.064 NT-Pro-B Natriuret Pep 10/06/17 10/07/17 06:05 03:51 Creatine Kinase CK-MB (CK-2) Troponin I NT-Pro-B Natriuret Pep 57543 H 8380 H EKG Comments: Telemetry shows sinus rhythm with intermittent ventricular paced with a sensing. Impressions: Abdomen/Pelvis CT 10/05/17 09:56 IMPRESSION: Bilateral nephrostomy tubes replacing renal stents. Apparent poorly defined mass just inferior to the right kidney along the inferior vena cava. Increased since previous. No bowel obstruction. Markedly thick-walled bladder. Extensive bony metastases. Interval development of ascites. Chest CT 10/05/17 09:56 IMPRESSION: Bilateral nephrostomy tubes replacing renal stents. Apparent poorly defined mass just inferior to the right kidney along the inferior vena cava. Increased since previous. No bowel obstruction. Markedly thick-walled bladder. Extensive bony metastases. Interval development of ascites. Chest X-Ray 10/05/17 17:27 IMPRESSION: CARDIAC ENLARGEMENT. VASCULAR CONGESTION. Deterioration from previous. Assessment & Plan - Diagnosis (1) Non-STEMI (non-ST elevated myocardial infarction) Is this a current diagnosis for this admission?: Yes (2) Congestive heart failure Qualifiers: Heart failure type: combined systolic and diastolic Heart failure chronicity: acute on chronic Qualified Code(s): I50.43 - Acute on chronic combined systolic (congestive) and diastolic (congestive) heart failure Is this a current diagnosis for this admission?: Yes (3) Coronary artery disease Qualifiers: Coronary Disease-Associated Artery/Lesion type: [place] artery Is this a current diagnosis for this admission?: Yes (4) Elevated troponin Is this a current diagnosis for this admission?: Yes (5) Hypotension Qualifiers: Hypotension type: unspecified hypotension type Qualified Code(s): I95.9 - Hypotension, unspecified Is this a current diagnosis for this admission?: Yes (6) Malignant neoplasm metastatic from bladder Is this a current diagnosis for this admission?: Yes (7) Anemia Qualifiers: Anemia type: bone marrow failure Bone marrow failure anemia type: pancytopenia, antineoplastic chemotherapy-induced Qualified Code(s): D61.810 - Antineoplastic chemotherapy induced pancytopenia; T45.1X5A - Adverse effect of antineoplastic and immunosuppressive drugs, initial encounter; T45.1X5A - Adverse effect of antineoplastic and immunosuppressive drugs, initial encounter Is this a current diagnosis for this admission?: Yes - Notes Notes: Non-STEMI: Related to supply demand mismatch from hypotension, tachycardia. Patient does have known CAD. At this point treat with aggressive risk factor modification and medical management. Patient felt not a candidate for aggressive intervention due to significant other comorbid condition. Patient also has severe anemia. Severe anemia: Patient is now status post transfusion. Keep following hemoglobin to look for any further need for transfusion. CHF: Most likely acute on chronic precipitated by possible sepsis, excess volume infusion. CHF seems related to combined systolic and diastolic dysfunction, acute on chronic. No significant valvular abnormalities were noted. Coronary artery disease: Patient is status post bypass surgery. Currently without any active chest pain. Troponin I elevation: This is in the non-STEMI range most likely type II related to supply demand mismatch. Hypotension: Recommend Tevin-Synephrine drip or vasopressin drip if needed for hypotension to maintain systolic above 90 mmHg and mean pressure above 60. Malignant neoplasm metastatic from bladder: Patient is seeing oncologist. Will also benefit from a urological consultation. - Time Time with patient: Greater than 35 minutes - Patient now made a DNR. More than 50% of the time spent coordinating care, discussing management plans with involved caregivers. Management plans discussed with involved personnels. Medical decision making was of moderate to high complexity, patient's has multiple comorbidities. Medications reviewed and adjusted accordingly: Yes
--- NOTE | 2017-10-07 18:18 | PDOC PROGRESS REPORT ---
Subjective Progress Note for:: 10/07/17 Subjective:: Patient seems to be doing better with remarkable improvement. Pt is denying any chest arm or neck discomfort. Patient denying any PND, orthopnea. Patient denied any sustained palpitations, dizziness, syncope, near syncope. Patient denying any fever chills. Patient denying any other significant discomfort. Patient is maintaining sinus rhythm. Intermittent ventricular paced beats noted with a sensing. Review of systems: Rest review of systems negative. Medications: Medications have been reviewed. Reason For Visit: HYPOTENSION,SEPSIS,ANEMIA Physical Exam Vital Signs: Temp Pulse Resp BP Pulse Ox 98.3 F 86 35 H 117/51 L 90 L 10/07/17 16:00 10/07/17 14:21 10/07/17 17:00 10/07/17 16:43 10/07/17 16:42 Intake & Output 10/06/17 10/07/17 10/08/17 06:59 06:59 06:59 Intake Total 1044 2519 600 Output Total 800 1395 225 Balance 244 1124 375 Weight 66.4 kg 68.8 kg Exam: GENERAL: well-nourished and in no acute distress. Alert and oriented x3 HEAD: Atraumatic, normocephalic. EYES: Pupils equal round and reactive to light, extraocular movements intact, sclera anicteric, conjunctiva are normal. ENT: TMs normal, nares patent, oropharynx clear without exudates. Moist mucous membranes. No oral ulcerations or bleeding gums noted NECK: supple without lymphadenopathy. Trachea is central. No cervical or axillary lymphadenopathy noted. Carotids are 2+, JVD WNL LUNGS: Respiration seems nonlabored, no significant accessory muscle action noted. Breath sounds clear to auscultation bilaterally and equal noted. No wheezes rales or rhonchi noted. No significant dullness noted on percussion. CHEST: Palpation of the chest wall shows no significant chest wall tenderness. 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 ABDOMEN: Soft, no significant tenderness appreciated, normoactive bowel sounds. No guarding, no rebound. No rigidity noted . No masses appreciated. EXTREMITIES: Pedal pulses are 1-2+, no calf tenderness noted. No clubbing or cyanosis. negative pedal edema noted NEUROLOGICAL: Focused neurological exam showed no significant neurologic deficit. Normal speech, no focal weakness appreciated. PSYCH: Normal mood, normal affect. Judgment and insight within normal limits. SKIN: No significant ecchymosis, skin is noted to be warm. MUSCULOSKELETAL EXAM: No significant acute joint swelling noted. Results Laboratory Results: 10/07/17 03:51 10/07/17 03:51 10/07/17 10/07/17 03:51 03:51 WBC 10.5 RBC 2.82 L Hgb 8.1 L Hct 23.6 L MCV 84 MCH 28.8 MCHC 34.3 RDW 18.8 H Plt Count 224 Seg Neutrophils % 85.0 H Lymphocytes % 7.6 L Monocytes % 7.2 Eosinophils % 0.1 Basophils % 0.1 Absolute Neutrophils 8.9 H Absolute Lymphocytes 0.8 Absolute Monocytes 0.7 Absolute Eosinophils 0.0 Absolute Basophils 0.0 Sodium 139.6 Potassium 4.0 Chloride 108 H Carbon Dioxide 22 Anion Gap 10 BUN 15 Creatinine 0.77 Est GFR ( Amer) > 60 Est GFR (Non-Af Amer) > 60 Glucose 111 H Calcium 7.8 L Magnesium 1.6 Total Bilirubin 0.3 AST 85 H ALT 19 Alkaline Phosphatase 2207 H Total Protein 5.0 L Albumin 2.4 L 10/05/17 10/05/17 10/05/17 13:26 13:26 16:54 Creatine Kinase 134 145 H CK-MB (CK-2) 0.93 Troponin I 0.148 NT-Pro-B Natriuret Pep 10/05/17 10/06/17 10/06/17 16:54 01:01 01:01 Creatine Kinase 118 CK-MB (CK-2) 0.39 0.25 Troponin I 0.092 0.064 NT-Pro-B Natriuret Pep 10/06/17 10/07/17 06:05 03:51 Creatine Kinase CK-MB (CK-2) Troponin I NT-Pro-B Natriuret Pep 26683 H 8380 H EKG Comments: Sinus rhythm with intermittent ventricular paced beats Impressions: Abdomen/Pelvis CT 10/05/17 09:56 IMPRESSION: Bilateral nephrostomy tubes replacing renal stents. Apparent poorly defined mass just inferior to the right kidney along the inferior vena cava. Increased since previous. No bowel obstruction. Markedly thick-walled bladder. Extensive bony metastases. Interval development of ascites. Chest CT 10/05/17 09:56 IMPRESSION: Bilateral nephrostomy tubes replacing renal stents. Apparent poorly defined mass just inferior to the right kidney along the inferior vena cava. Increased since previous. No bowel obstruction. Markedly thick-walled bladder. Extensive bony metastases. Interval development of ascites. Chest X-Ray 10/05/17 17:27 IMPRESSION: CARDIAC ENLARGEMENT. VASCULAR CONGESTION. Deterioration from previous. Assessment & Plan - Diagnosis (1) Non-STEMI (non-ST elevated myocardial infarction) Is this a current diagnosis for this admission?: Yes (2) Congestive heart failure Qualifiers: Heart failure type: combined systolic and diastolic Heart failure chronicity: acute on chronic Qualified Code(s): I50.43 - Acute on chronic combined systolic (congestive) and diastolic (congestive) heart failure Is this a current diagnosis for this admission?: Yes (3) Coronary artery disease Qualifiers: Coronary Disease-Associated Artery/Lesion type: [place] artery Is this a current diagnosis for this admission?: Yes (4) Elevated troponin Is this a current diagnosis for this admission?: Yes (5) Hypotension Qualifiers: Hypotension type: unspecified hypotension type Qualified Code(s): I95.9 - Hypotension, unspecified Is this a current diagnosis for this admission?: Yes (6) Malignant neoplasm metastatic from bladder Is this a current diagnosis for this admission?: Yes (7) Anemia Qualifiers: Anemia type: bone marrow failure Bone marrow failure anemia type: pancytopenia, antineoplastic chemotherapy-induced Qualified Code(s): D61.810 - Antineoplastic chemotherapy induced pancytopenia; T45.1X5A - Adverse effect of antineoplastic and immunosuppressive drugs, initial encounter; T45.1X5A - Adverse effect of antineoplastic and immunosuppressive drugs, initial encounter Is this a current diagnosis for this admission?: Yes - Notes Notes: Patient stable on current regimen. Will continue with it. Patient will benefit from increasing physical activity. CHF seems compensated. Non-STEMI: Most likely related to supply demand mismatch from hypotension, tachycardia. Patient does have known CAD. At this point treat with aggressive risk factor modification and medical management. Patient felt not a candidate for aggressive intervention due to significant other comorbid condition. Patient also has severe anemia. Anemia: Hemoglobin has been stable. Will follow customer service manager recommendation, currently recommending no transfusion as hemoglobin is stable. CHF: Acute on chronic, precipitated by sepsis, anemia, volume overload. Patient currently seems compensated. Will start low-dose diuretics from tomorrow. Coronary artery disease: Patient is status post bypass surgery. Currently without any active chest pain. Troponin I elevation: This is in the non-STEMI range most likely type II related to supply demand mismatch. No need for ischemia evaluation. Hypotension: Blood pressure now stable. Malignant neoplasm metastatic from bladder: Patient is seeing oncologist. - Time Time with patient: 15-25 minutes - CODE STATUS : was discussed, patient remains DO NOT RESUSCITATE. Surrogate decision-maker unchanged. Multiple medical problems were addressed. More than 50% of the time spent coordinating care, discussing management plans with involved caregivers. Management plans discussed with involved personnels. Medical decision making was of moderate to high complexity, patient's has multiple comorbidities. Medications reviewed and adjusted accordingly: Yes
[2017-10-07] MEDS: TIOTROPIUM BROMIDE DPI 5 CAP/KIT (18 MCG/CAP) IH SCH (22:05)
[2017-10-07] MEDS: MORPHINE SULFATE IR 15 MG TABLET PO PRN (22:28)
[2017-10-08] MEDS: PIPERACILLIN SODIUM/TAZOBACTAM 3.375 GM in NORMAL SALINE 100 ML IV SCH ×5 (00:43→23:30)
[2017-10-08] MEDS: NORMAL SALINE 1000 ML 1,000 ML IV PRN ×2 (00:49→23:30)
[2017-10-08] MEDS: LEVALBUTEROL HCL NEB 1.25 MG/3 ML AMPUL NEB SCH ×4 (01:51→20:27)
[2017-10-08 04:42] LABS: ABSOLUTE LYMPHOCYTES (AUTO) 0.8 10^3/uL (0.5-4.7); ABSOLUTE MONOCYTES (AUTO) 0.7 10^3/uL (0.1-1.4); ABSOLUTE NEUT (AUTO) 7.2 10^3/uL (1.7-8.2); BASOPHILS % (AUTO) 0.1 % (0-2); EOSINOPHILS % (AUTO) 0.3 % (0-6); HEMATOCRIT 23.7 % (36.0-47.0); HEMOGLOBIN 8.1 g/dL (12.0-15.5); LYMPHOCYTES % (AUTO) 8.9 % (13-45); MEAN CORPUSCULAR HEMOGLOBIN 28.3 pg (27.0-33.4); MEAN CORPUSCULAR VOLUME 84 fl (80-97); MONOCYTES % (AUTO) 8.3 % (3-13); PLATELET COUNT 245 10^3/uL (150-450); RED BLOOD COUNT 2.84 10^6/uL (3.72-5.28); RED CELL DISTRIBUTION WIDTH 18.8 % (11.5-14.0); SEGMENTED NEUTROPHILS % (AUTO) 82.4 % (42-78); TOTAL CELLS COUNTED % (AUTO) 100 %; WHITE BLOOD COUNT 8.7 10^3/uL (4.0-10.5)
[2017-10-08 04:50] LABS: ALANINE AMINOTRANSFERASE 20 U/L (9-52); ALBUMIN 2.3 g/dL (3.5-5.0); ANION GAP 10 (5-19); ASPARTATE AMINO TRANSFERASE 55 U/L (14-36); BILIRUBIN,DIRECT 0.4 mg/dL (0.0-0.4); BILIRUBIN,TOTAL 0.4 mg/dL (0.2-1.3); BLOOD UREA NITROGEN 13 mg/dL (7-20); CALCIUM 7.9 mg/dL (8.4-10.2); CARBON DIOXIDE 22 mmol/L (22-30); CHLORIDE 108 mmol/L (98-107); GLUCOSE 101 mg/dL (75-110); SODIUM 139.9 mmol/L (137-145); TOTAL PROTEIN 4.9 g/dL (6.3-8.2)
[2017-10-08 05:09] LABS: ALKALINE PHOSPHATASE 1905 U/L (38-126)
[2017-10-08] MEDS: LORAZEPAM 0.5 MG TABLET PO PRN (07:16)
[2017-10-08] MEDS: LEVOFLOXACIN 500 MG/D5W RTU 500 MG/100 ML RTUPB IV SCH (09:48)
[2017-10-08] MEDS: BUDESONIDE/FORMOTEROL 80-4.5 MCG 60 PUFF/6.9 GM MDI IH SCH ×2 (09:53→23:30)
[2017-10-08] MEDS: DOCUSATE SODIUM 100 MG CAPSULE PO SCH ×2 (09:53→17:57)
[2017-10-08] MEDS: MAGNESIUM OXIDE 400 MG TABLET PO SCH ×2 (09:54→17:39)
[2017-10-08] MEDS: TIOTROPIUM BROMIDE DPI 5 CAP/KIT (18 MCG/CAP) IH SCH (09:54)
[2017-10-08] MEDS: FAMOTIDINE INJ/PF 20 MG/2 ML SDV IV SCH ×2 (09:54→17:38)
--- NOTE | 2017-10-08 11:42 | PDOC PROGRESS REPORT ---
Subjective Progress Note for:: 10/08/17 Subjective:: Patient feeling worse over the last 24 hours, having more nausea, dizziness. Zofran and Ativan do not seem to be helping much. Reason For Visit: HYPOTENSION,SEPSIS,ANEMIA Physical Exam Vital Signs: Temp Pulse Resp BP Pulse Ox 98.1 F 108 H 18 121/60 99 10/08/17 08:00 10/08/17 08:00 10/08/17 08:00 10/08/17 08:00 10/08/17 08:00 Intake & Output 10/07/17 10/08/17 10/09/17 06:59 06:59 06:59 Intake Total 2519 2250 543 Output Total 1395 800 Balance 1124 1450 543 Weight 68.8 kg 64.8 kg General appearance: PRESENT: no acute distress, well-developed, well-nourished Head exam: PRESENT: atraumatic, normocephalic Eye exam: PRESENT: conjunctiva pink, EOMI, PERRLA. ABSENT: scleral icterus Ear exam: PRESENT: normal external ear exam Mouth exam: PRESENT: moist, tongue midline Neck exam: ABSENT: carotid bruit, JVD, lymphadenopathy, thyromegaly Respiratory exam: PRESENT: clear to auscultation zaida. ABSENT: rales, rhonchi, wheezes Cardiovascular exam: PRESENT: RRR. ABSENT: diastolic murmur, rubs, systolic murmur Pulses: PRESENT: normal dorsalis pedis pul Vascular exam: PRESENT: normal capillary refill GI/Abdominal exam: PRESENT: normal bowel sounds, soft. ABSENT: distended, guarding, mass, organolmegaly, rebound, tenderness Rectal exam: PRESENT: deferred Extremities exam: PRESENT: full ROM. ABSENT: calf tenderness, clubbing, pedal edema Neurological exam: PRESENT: alert, awake, oriented to person, oriented to place , oriented to time, oriented to situation, CN II-XII grossly intact. ABSENT: motor sensory deficit Psychiatric exam: PRESENT: appropriate affect, normal mood. ABSENT: homicidal ideation, suicidal ideation Skin exam: PRESENT: dry, intact, warm. ABSENT: cyanosis, rash Results Laboratory Results: 10/08/17 04:05 10/08/17 04:05 10/08/17 10/08/17 04:05 04:05 WBC 8.7 RBC 2.84 L Hgb 8.1 L Hct 23.7 L MCV 84 MCH 28.3 MCHC 34.0 RDW 18.8 H Plt Count 245 Seg Neutrophils % 82.4 H Lymphocytes % 8.9 L Monocytes % 8.3 Eosinophils % 0.3 Basophils % 0.1 Absolute Neutrophils 7.2 Absolute Lymphocytes 0.8 Absolute Monocytes 0.7 Absolute Eosinophils 0.0 Absolute Basophils 0.0 Sodium 139.9 Potassium 4.0 Chloride 108 H Carbon Dioxide 22 Anion Gap 10 BUN 13 Creatinine 0.82 Est GFR ( Amer) > 60 Est GFR (Non-Af Amer) > 60 Glucose 101 Calcium 7.9 L Magnesium 1.7 Total Bilirubin 0.4 AST 55 H ALT 20 Alkaline Phosphatase 1905 H Total Protein 4.9 L Albumin 2.3 L 10/05/17 10/05/17 10/05/17 13:26 13:26 16:54 Creatine Kinase 134 145 H CK-MB (CK-2) 0.93 Troponin I 0.148 NT-Pro-B Natriuret Pep 10/05/17 10/06/17 10/06/17 16:54 01:01 01:01 Creatine Kinase 118 CK-MB (CK-2) 0.39 0.25 Troponin I 0.092 0.064 NT-Pro-B Natriuret Pep 10/06/17 10/07/17 10/08/17 06:05 03:51 04:05 Creatine Kinase CK-MB (CK-2) Troponin I NT-Pro-B Natriuret Pep 63640 H 8380 H 8250 H Impressions: Abdomen/Pelvis CT 10/05/17 09:56 IMPRESSION: Bilateral nephrostomy tubes replacing renal stents. Apparent poorly defined mass just inferior to the right kidney along the inferior vena cava. Increased since previous. No bowel obstruction. Markedly thick-walled bladder. Extensive bony metastases. Interval development of ascites. Chest CT 10/05/17 09:56 IMPRESSION: Bilateral nephrostomy tubes replacing renal stents. Apparent poorly defined mass just inferior to the right kidney along the inferior vena cava. Increased since previous. No bowel obstruction. Markedly thick-walled bladder. Extensive bony metastases. Interval development of ascites. Chest X-Ray 10/05/17 17:27 IMPRESSION: CARDIAC ENLARGEMENT. VASCULAR CONGESTION. Deterioration from previous. Assessment & Plan - Diagnosis (1) Malignant neoplasm metastatic from bladder Is this a current diagnosis for this admission?: Yes Plan: Progression of disease, patient still is fairly bedridden, probably will not change so family seems agreeable to comfort care measures. We are going to have hospice talk with him today, continue with current treatment as being done , and we can change to a comfort care plan in the next 24 hours if family is agreeable. (2) Anemia Qualifiers: Anemia type: bone marrow failure Bone marrow failure anemia type: pancytopenia, antineoplastic chemotherapy-induced Qualified Code(s): D61.810 - Antineoplastic chemotherapy induced pancytopenia; T45.1X5A - Adverse effect of antineoplastic and immunosuppressive drugs, initial encounter; T45.1X5A - Adverse effect of antineoplastic and immunosuppressive drugs, initial encounter Is this a current diagnosis for this admission?: Yes Plan: Hemoglobin stable do not plan further transfusion - Time Time Spent with patient: 35 or more minutes - Inpatient Certification Based on my medical assessment, after consideration of the patient's comorbidities, presenting symptoms, or acuity I expect that the services needed warrant INPATIENT care.: Yes I certify that my determination is in accordance with my understanding of Medicare's requirements for reasonable and necessary INPATIENT services [42 CFR 412.3e].: Yes
[2017-10-08] MEDS: PROCHLORPERAZINE EDISYLATE INJ 10 MG/2 ML VIAL IV PRN ×2 (11:44→17:39)
--- NOTE | 2017-10-08 15:46 | PDOC PROGRESS REPORT ---
Subjective Progress Note for:: 10/08/17 Subjective:: Patient was seen by oncology, hospice recommended, poor prognosis Reason For Visit: HYPOTENSION,SEPSIS,ANEMIA Physical Exam Vital Signs: Temp Pulse Resp BP Pulse Ox 97.8 F 98 16 99/45 L 100 10/08/17 10:00 10/08/17 14:29 10/08/17 14:29 10/08/17 10:00 10/08/17 10:00 Intake & Output 10/07/17 10/08/17 10/09/17 06:59 06:59 06:59 Intake Total 2519 2250 543 Output Total 1395 800 Balance 1124 1450 543 Weight 68.8 kg 64.8 kg General appearance: PRESENT: no acute distress Respiratory exam: PRESENT: clear to auscultation zaida Cardiovascular exam: PRESENT: +S1, +S2 Neurological exam: PRESENT: alert Results Laboratory Results: 10/08/17 04:05 10/08/17 04:05 10/08/17 10/08/17 04:05 04:05 WBC 8.7 RBC 2.84 L Hgb 8.1 L Hct 23.7 L MCV 84 MCH 28.3 MCHC 34.0 RDW 18.8 H Plt Count 245 Seg Neutrophils % 82.4 H Lymphocytes % 8.9 L Monocytes % 8.3 Eosinophils % 0.3 Basophils % 0.1 Absolute Neutrophils 7.2 Absolute Lymphocytes 0.8 Absolute Monocytes 0.7 Absolute Eosinophils 0.0 Absolute Basophils 0.0 Sodium 139.9 Potassium 4.0 Chloride 108 H Carbon Dioxide 22 Anion Gap 10 BUN 13 Creatinine 0.82 Est GFR ( Amer) > 60 Est GFR (Non-Af Amer) > 60 Glucose 101 Calcium 7.9 L Magnesium 1.7 Total Bilirubin 0.4 AST 55 H ALT 20 Alkaline Phosphatase 1905 H Total Protein 4.9 L Albumin 2.3 L 10/05/17 10/05/17 10/05/17 13:26 13:26 16:54 Creatine Kinase 134 145 H CK-MB (CK-2) 0.93 Troponin I 0.148 NT-Pro-B Natriuret Pep 10/05/17 10/06/17 10/06/17 16:54 01:01 01:01 Creatine Kinase 118 CK-MB (CK-2) 0.39 0.25 Troponin I 0.092 0.064 NT-Pro-B Natriuret Pep 10/06/17 10/07/17 10/08/17 06:05 03:51 04:05 Creatine Kinase CK-MB (CK-2) Troponin I NT-Pro-B Natriuret Pep 36283 H 8380 H 8250 H Impressions: Abdomen/Pelvis CT 10/05/17 09:56 IMPRESSION: Bilateral nephrostomy tubes replacing renal stents. Apparent poorly defined mass just inferior to the right kidney along the inferior vena cava. Increased since previous. No bowel obstruction. Markedly thick-walled bladder. Extensive bony metastases. Interval development of ascites. Chest CT 10/05/17 09:56 IMPRESSION: Bilateral nephrostomy tubes replacing renal stents. Apparent poorly defined mass just inferior to the right kidney along the inferior vena cava. Increased since previous. No bowel obstruction. Markedly thick-walled bladder. Extensive bony metastases. Interval development of ascites. Chest X-Ray 10/05/17 17:27 IMPRESSION: CARDIAC ENLARGEMENT. VASCULAR CONGESTION. Deterioration from previous. Assessment & Plan - Diagnosis (1) Septic shock Is this a current diagnosis for this admission?: Yes (2) Urothelial carcinoma Is this a current diagnosis for this admission?: Yes (3) Non-STEMI (non-ST elevated myocardial infarction) Is this a current diagnosis for this admission?: Yes
--- NOTE | 2017-10-08 17:59 | PDOC PROGRESS REPORT ---
Subjective Progress Note for:: 10/08/17 Subjective:: Patient seems to be doing better with remarkable improvement. Patient is resting comfortably. Pt is denying any chest arm or neck discomfort. Patient denying any PND, orthopnea. Patient denied any sustained palpitations, dizziness, syncope, near syncope. Patient denying any fever chills. Patient denying any other significant discomfort. Although BNP is elevated, there is no clinical signs of fluid overload. Patient is maintaining sinus rhythm. Intermittent ventricular paced beats noted with a sensing. Review of systems: Rest review of systems negative. Medications: Medications have been reviewed. Reason For Visit: HYPOTENSION,SEPSIS,ANEMIA Physical Exam Vital Signs: Temp Pulse Resp BP Pulse Ox 98.1 F 103 H 16 115/50 L 99 10/08/17 15:48 10/08/17 15:48 10/08/17 15:48 10/08/17 15:48 10/08/17 15:48 Intake & Output 10/07/17 10/08/17 10/09/17 06:59 06:59 06:59 Intake Total 2519 2250 643 Output Total 1395 800 Balance 1124 1450 643 Weight 68.8 kg 64.8 kg Exam: GENERAL: well-nourished and in no acute distress. Alert and oriented x3. Patient generally fatigued and tired but no new complaints HEAD: Atraumatic, normocephalic. EYES: Pupils equal round and reactive to light, extraocular movements intact, sclera anicteric, conjunctiva are normal. ENT: TMs normal, nares patent, oropharynx clear without exudates. Moist mucous membranes. No oral ulcerations or bleeding gums noted NECK: supple without lymphadenopathy. Trachea is central. No cervical or axillary lymphadenopathy noted. Carotids are 2+, JVD WNL LUNGS: Respiration seems nonlabored, no significant accessory muscle action noted. Breath sounds clear to auscultation bilaterally and equal noted. No wheezes rales or rhonchi noted. No significant dullness noted on percussion. CHEST: Palpation of the chest wall shows no significant chest wall tenderness. 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 ABDOMEN: Soft, no significant tenderness appreciated, normoactive bowel sounds. No guarding, no rebound. No rigidity noted . No masses appreciated. Urostomy tubes noted EXTREMITIES: Pedal pulses are 1-2+, no calf tenderness noted. No clubbing or cyanosis. negative pedal edema noted NEUROLOGICAL: Focused neurological exam showed no significant neurologic deficit. Normal speech, no focal weakness appreciated. PSYCH: Normal mood, normal affect. Judgment and insight within normal limits. SKIN: No significant ecchymosis, skin is noted to be warm. MUSCULOSKELETAL EXAM: No significant acute joint swelling noted. Results Laboratory Results: 10/08/17 04:05 10/08/17 04:05 10/08/17 10/08/17 04:05 04:05 WBC 8.7 RBC 2.84 L Hgb 8.1 L Hct 23.7 L MCV 84 MCH 28.3 MCHC 34.0 RDW 18.8 H Plt Count 245 Seg Neutrophils % 82.4 H Lymphocytes % 8.9 L Monocytes % 8.3 Eosinophils % 0.3 Basophils % 0.1 Absolute Neutrophils 7.2 Absolute Lymphocytes 0.8 Absolute Monocytes 0.7 Absolute Eosinophils 0.0 Absolute Basophils 0.0 Sodium 139.9 Potassium 4.0 Chloride 108 H Carbon Dioxide 22 Anion Gap 10 BUN 13 Creatinine 0.82 Est GFR ( Amer) > 60 Est GFR (Non-Af Amer) > 60 Glucose 101 Calcium 7.9 L Magnesium 1.7 Total Bilirubin 0.4 AST 55 H ALT 20 Alkaline Phosphatase 1905 H Total Protein 4.9 L Albumin 2.3 L 10/05/17 10/05/17 10/05/17 13:26 13:26 16:54 Creatine Kinase 134 145 H CK-MB (CK-2) 0.93 Troponin I 0.148 NT-Pro-B Natriuret Pep 10/05/17 10/06/17 10/06/17 16:54 01:01 01:01 Creatine Kinase 118 CK-MB (CK-2) 0.39 0.25 Troponin I 0.092 0.064 NT-Pro-B Natriuret Pep 10/06/17 10/07/17 10/08/17 06:05 03:51 04:05 Creatine Kinase CK-MB (CK-2) Troponin I NT-Pro-B Natriuret Pep 79253 H 8380 H 8250 H EKG Comments: Telemetry shows a sensed V paced rhythm predominantly today Impressions: Abdomen/Pelvis CT 10/05/17 09:56 IMPRESSION: Bilateral nephrostomy tubes replacing renal stents. Apparent poorly defined mass just inferior to the right kidney along the inferior vena cava. Increased since previous. No bowel obstruction. Markedly thick-walled bladder. Extensive bony metastases. Interval development of ascites. Chest CT 10/05/17 09:56 IMPRESSION: Bilateral nephrostomy tubes replacing renal stents. Apparent poorly defined mass just inferior to the right kidney along the inferior vena cava. Increased since previous. No bowel obstruction. Markedly thick-walled bladder. Extensive bony metastases. Interval development of ascites. Chest X-Ray 10/05/17 17:27 IMPRESSION: CARDIAC ENLARGEMENT. VASCULAR CONGESTION. Deterioration from previous. Assessment & Plan - Diagnosis (1) Non-STEMI (non-ST elevated myocardial infarction) Is this a current diagnosis for this admission?: Yes (2) Congestive heart failure Qualifiers: Heart failure type: combined systolic and diastolic Heart failure chronicity: acute on chronic Qualified Code(s): I50.43 - Acute on chronic combined systolic (congestive) and diastolic (congestive) heart failure Is this a current diagnosis for this admission?: Yes (3) Coronary artery disease Qualifiers: Coronary Disease-Associated Artery/Lesion type: yurok artery Is this a current diagnosis for this admission?: Yes (4) Elevated troponin Is this a current diagnosis for this admission?: Yes (5) Hypotension Qualifiers: Hypotension type: unspecified hypotension type Qualified Code(s): I95.9 - Hypotension, unspecified Is this a current diagnosis for this admission?: Yes (6) Malignant neoplasm metastatic from bladder Is this a current diagnosis for this admission?: Yes (7) Anemia Qualifiers: Anemia type: bone marrow failure Bone marrow failure anemia type: pancytopenia, antineoplastic chemotherapy-induced Qualified Code(s): D61.810 - Antineoplastic chemotherapy induced pancytopenia; T45.1X5A - Adverse effect of antineoplastic and immunosuppressive drugs, initial encounter; T45.1X5A - Adverse effect of antineoplastic and immunosuppressive drugs, initial encounter Is this a current diagnosis for this admission?: Yes - Notes Notes: Patient stable on current regimen. Will continue with it. Patient will benefit from increasing physical activity. CHF seems compensated. No new recommendations. Will sign off. Non-STEMI: Most likely related to supply demand mismatch from hypotension, tachycardia. Patient does have known CAD. At this point treat with aggressive risk factor modification and medical management. Patient felt not a candidate for aggressive intervention due to significant other comorbid condition. CODE STATUS now DNR. Anemia: Hemoglobin has been stable today as well. Will follow shovel oiler recommendation, currently recommending no transfusion as hemoglobin is stable. CHF: Acute on chronic, precipitated by sepsis, anemia, volume overload. Patient currently seems compensated. Will start low-dose diuretics from tomorrow. Coronary artery disease: Patient is status post bypass surgery. Currently without any active chest pain. Troponin I elevation: This is in the non-STEMI range most likely type II related to supply demand mismatch. No need for ischemia evaluation. Hypotension: Blood pressure now stable. Will start low-dose diuretics from tomorrow. Malignant neoplasm metastatic from bladder: Patient is seeing oncologist. Will sign off. Please reconsult if needed. - Time Time with patient: 15-25 minutes - CODE STATUS : was discussed, patient remains DO NOT RESUSCITATE. Surrogate decision-maker unchanged. Multiple medical problems were addressed. More than 50% of the time spent coordinating care, discussing management plans with involved caregivers. Management plans discussed with involved personnels. Medical decision making was of moderate to high complexity, patient's has multiple comorbidities.
[2017-10-09] MEDS: LEVALBUTEROL HCL NEB 1.25 MG/3 ML AMPUL NEB SCH ×4 (02:51→20:10)
[2017-10-09] MEDS: MORPHINE SULFATE IR 15 MG TABLET PO PRN (03:42)
[2017-10-09] MEDS: PIPERACILLIN SODIUM/TAZOBACTAM 3.375 GM in NORMAL SALINE 100 ML IV SCH (05:08)
--- NOTE | 2017-10-09 08:21 | PDOC PROGRESS REPORT ---
Subjective Progress Note for:: 10/09/17 Subjective:: Patient still pretty weak, although feels better from nausea standpoint with Compazine. Hospice did connect with patient yesterday, and will be meeting with family today, and getting things set up for outpatient hospice at home. Reason For Visit: HYPOTENSION,SEPSIS,ANEMIA Physical Exam Vital Signs: Temp Pulse Resp BP Pulse Ox 98.3 F 94 18 87/48 L 96 10/09/17 07:33 10/09/17 07:33 10/09/17 07:33 10/09/17 07:33 10/09/17 07:33 Intake & Output 10/08/17 10/09/17 10/10/17 06:59 06:59 06:59 Intake Total 2250 2740 Output Total 800 700 Balance 1450 2040 Weight 64.8 kg 66.3 kg General appearance: PRESENT: no acute distress, well-developed, well-nourished Head exam: PRESENT: atraumatic, normocephalic Eye exam: PRESENT: conjunctiva pink, EOMI, PERRLA. ABSENT: scleral icterus Ear exam: PRESENT: normal external ear exam Mouth exam: PRESENT: moist, tongue midline Neck exam: ABSENT: carotid bruit, JVD, lymphadenopathy, thyromegaly Respiratory exam: PRESENT: clear to auscultation zaida. ABSENT: rales, rhonchi, wheezes Cardiovascular exam: PRESENT: RRR. ABSENT: diastolic murmur, rubs, systolic murmur Pulses: PRESENT: normal dorsalis pedis pul Vascular exam: PRESENT: normal capillary refill GI/Abdominal exam: PRESENT: normal bowel sounds, soft. ABSENT: distended, guarding, mass, organolmegaly, rebound, tenderness Rectal exam: PRESENT: deferred Extremities exam: PRESENT: full ROM. ABSENT: calf tenderness, clubbing, pedal edema Neurological exam: PRESENT: alert, awake, oriented to person, oriented to place , oriented to time, oriented to situation, CN II-XII grossly intact. ABSENT: motor sensory deficit Psychiatric exam: PRESENT: appropriate affect, normal mood. ABSENT: homicidal ideation, suicidal ideation Skin exam: PRESENT: dry, intact, warm. ABSENT: cyanosis, rash Results Laboratory Results: 10/08/17 04:05 10/08/17 04:05 10/05/17 10/05/17 10/05/17 13:26 13:26 16:54 Creatine Kinase 134 145 H CK-MB (CK-2) 0.93 Troponin I 0.148 NT-Pro-B Natriuret Pep 10/05/17 10/06/17 10/06/17 16:54 01:01 01:01 Creatine Kinase 118 CK-MB (CK-2) 0.39 0.25 Troponin I 0.092 0.064 NT-Pro-B Natriuret Pep 10/06/17 10/07/17 10/08/17 06:05 03:51 04:05 Creatine Kinase CK-MB (CK-2) Troponin I NT-Pro-B Natriuret Pep 90869 H 8380 H 8250 H Impressions: Abdomen/Pelvis CT 10/05/17 09:56 IMPRESSION: Bilateral nephrostomy tubes replacing renal stents. Apparent poorly defined mass just inferior to the right kidney along the inferior vena cava. Increased since previous. No bowel obstruction. Markedly thick-walled bladder. Extensive bony metastases. Interval development of ascites. Chest CT 10/05/17 09:56 IMPRESSION: Bilateral nephrostomy tubes replacing renal stents. Apparent poorly defined mass just inferior to the right kidney along the inferior vena cava. Increased since previous. No bowel obstruction. Markedly thick-walled bladder. Extensive bony metastases. Interval development of ascites. Chest X-Ray 10/05/17 17:27 IMPRESSION: CARDIAC ENLARGEMENT. VASCULAR CONGESTION. Deterioration from previous. Assessment & Plan - Diagnosis (1) Malignant neoplasm metastatic from bladder Is this a current diagnosis for this admission?: Yes Plan: No further treatment plan, patient and family is agreed to hospice, plan for that to happen the next 24-48 hours once things are set up at home. (2) Anemia Qualifiers: Anemia type: bone marrow failure Bone marrow failure anemia type: pancytopenia, antineoplastic chemotherapy-induced Qualified Code(s): D61.810 - Antineoplastic chemotherapy induced pancytopenia; T45.1X5A - Adverse effect of antineoplastic and immunosuppressive drugs, initial encounter; T45.1X5A - Adverse effect of antineoplastic and immunosuppressive drugs, initial encounter Is this a current diagnosis for this admission?: Yes Plan: No further transfusion plan
[2017-10-09] MEDS: PROCHLORPERAZINE EDISYLATE INJ 10 MG/2 ML VIAL IV PRN ×3 (08:47→19:43)
[2017-10-09] MEDS ORDERED: FUROSEMIDE 40 MG TABLET PO SCH (10:00)
[2017-10-09] MEDS: BUDESONIDE/FORMOTEROL 80-4.5 MCG 60 PUFF/6.9 GM MDI IH SCH ×2 (11:44→21:59)
[2017-10-09] MEDS: DOCUSATE SODIUM 100 MG CAPSULE PO SCH ×2 (11:45→18:16)
[2017-10-09] MEDS: LEVOFLOXACIN 500 MG/D5W RTU 500 MG/100 ML RTUPB IV SCH (12:10)
[2017-10-09] MEDS: MAGNESIUM OXIDE 400 MG TABLET PO SCH ×2 (12:11→18:16)
[2017-10-09] MEDS: TIOTROPIUM BROMIDE DPI 5 CAP/KIT (18 MCG/CAP) IH SCH (12:11)
[2017-10-09] MEDS: FAMOTIDINE INJ/PF 20 MG/2 ML SDV IV SCH ×2 (12:17→18:16)
--- NOTE | 2017-10-09 13:33 | PDOC PROGRESS REPORT ---
Subjective Progress Note for:: 10/09/17 Subjective:: Patient is currently doing fair Is still very weak As per extensive discussions with the patient and the family by oncologist patient is currently a DNR and going for the hospice the next 24 hours Reason For Visit: HYPOTENSION,SEPSIS,ANEMIA Physical Exam Vital Signs: Temp Pulse Resp BP Pulse Ox 97.7 F 98 17 100/57 L 99 10/09/17 11:13 10/09/17 11:13 10/09/17 11:13 10/09/17 11:13 10/09/17 11:13 Intake & Output 10/08/17 10/09/17 10/10/17 06:59 06:59 06:59 Intake Total 2250 2740 Output Total 800 700 Balance 1450 2040 Weight 64.8 kg 66.3 kg General appearance: PRESENT: no acute distress Head exam: PRESENT: atraumatic, normocephalic Eye exam: PRESENT: conjunctiva pink, EOMI, PERRLA. ABSENT: scleral icterus Ear exam: PRESENT: normal external ear exam Mouth exam: PRESENT: moist, tongue midline Neck exam: PRESENT: full ROM. ABSENT: carotid bruit, JVD, lymphadenopathy, thyromegaly Respiratory exam: PRESENT: clear to auscultation zaida Cardiovascular exam: PRESENT: RRR. ABSENT: diastolic murmur, rubs, systolic murmur Pulses: PRESENT: normal dorsalis pedis pul, +2 pedal pulses bilateral Vascular exam: PRESENT: normal capillary refill GI/Abdominal exam: PRESENT: normal bowel sounds, soft. ABSENT: distended, guarding, mass, organolmegaly, rebound, tenderness Rectal exam: PRESENT: deferred Neurological exam: PRESENT: alert, awake, oriented to person, oriented to place , oriented to time, oriented to situation, CN II-XII grossly intact. ABSENT: motor sensory deficit Psychiatric exam: PRESENT: appropriate affect, normal mood. ABSENT: homicidal ideation, suicidal ideation Skin exam: PRESENT: dry, intact, warm. ABSENT: cyanosis, rash Results Laboratory Results: 10/08/17 04:05 10/08/17 04:05 10/05/17 10/05/17 10/05/17 13:26 13:26 16:54 Creatine Kinase 134 145 H CK-MB (CK-2) 0.93 Troponin I 0.148 NT-Pro-B Natriuret Pep 10/05/17 10/06/17 10/06/17 16:54 01:01 01:01 Creatine Kinase 118 CK-MB (CK-2) 0.39 0.25 Troponin I 0.092 0.064 NT-Pro-B Natriuret Pep 10/06/17 10/07/17 10/08/17 06:05 03:51 04:05 Creatine Kinase CK-MB (CK-2) Troponin I NT-Pro-B Natriuret Pep 49921 H 8380 H 8250 H Impressions: Abdomen/Pelvis CT 10/05/17 09:56 IMPRESSION: Bilateral nephrostomy tubes replacing renal stents. Apparent poorly defined mass just inferior to the right kidney along the inferior vena cava. Increased since previous. No bowel obstruction. Markedly thick-walled bladder. Extensive bony metastases. Interval development of ascites. Chest CT 10/05/17 09:56 IMPRESSION: Bilateral nephrostomy tubes replacing renal stents. Apparent poorly defined mass just inferior to the right kidney along the inferior vena cava. Increased since previous. No bowel obstruction. Markedly thick-walled bladder. Extensive bony metastases. Interval development of ascites. Chest X-Ray 10/05/17 17:27 IMPRESSION: CARDIAC ENLARGEMENT. VASCULAR CONGESTION. Deterioration from previous. Assessment & Plan - Diagnosis (1) Hypotension Qualifiers: Hypotension type: unspecified hypotension type Qualified Code(s): I95.9 - Hypotension, unspecified Is this a current diagnosis for this admission?: Yes Plan: Currently pretty much same (2) Sepsis Qualifiers: Sepsis type: sepsis due to unspecified organism Qualified Code(s): A41.9 - Sepsis, unspecified organism Is this a current diagnosis for this admission?: Yes Plan: All cultures so far so negative (3) Coronary artery disease Qualifiers: Coronary Disease-Associated Artery/Lesion type: [place] artery Is this a current diagnosis for this admission?: Yes Plan: Currently stable follow with the cardiology (4) Congestive heart failure Qualifiers: Heart failure type: combined systolic and diastolic Heart failure chronicity: acute on chronic Qualified Code(s): I50.43 - Acute on chronic combined systolic (congestive) and diastolic (congestive) heart failure Is this a current diagnosis for this admission?: Yes Plan: Continues to monitor (5) Pacemaker Is this a current diagnosis for this admission?: Yes Plan: Consult with the cardiology (6) Hypocalcemia Is this a current diagnosis for this admission?: Yes Plan: Replace the calciums (7) Hypokalemia Is this a current diagnosis for this admission?: Yes Plan: Replace the potassium and check the magnesium well patient has significant electrolyte imbalance issues (8) Chronic kidney disease Qualifiers: Chronic kidney disease stage: stage 3 (moderate) Qualified Code(s): N18.3 - Chronic kidney disease, stage 3 (moderate) Is this a current diagnosis for this admission?: Yes Plan: Due to the obstructive uropathy currently all stable patient see Dr. 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 type: pancytopenia, antineoplastic chemotherapy-induced Qualified Code(s): D61.810 - Antineoplastic chemotherapy induced pancytopenia; T45.1X5A - Adverse effect of antineoplastic and immunosuppressive drugs, initial encounter; T45.1X5A - Adverse effect of antineoplastic and immunosuppressive drugs, initial encounter Is this a current diagnosis for this admission?: Yes (10) Intractable vomiting with nausea Qualifiers: Vomiting type: unspecified Qualified Code(s): R11.2 - Nausea with vomiting , unspecified Is this a current diagnosis for this admission?: Yes (11) Malignant neoplasm metastatic from bladder Is this a current diagnosis for this admission?: Yes Plan: Patient is going for the hospice care (12) Elevated troponin Is this a current diagnosis for this admission?: Yes (13) Pleural effusion Is this a current diagnosis for this admission?: Yes - Time Time Spent with patient: 15-24 minutes Medications reviewed and adjusted accordingly: Yes Anticipated discharge: Hospice Within: within 24 hours - Inpatient Certification Medical Necessity: Need Close Monitoring Due to Risk of Patient Decompensation Post Hospital Care: D/C Optical Scientist Documentation - Plan Summary Plan Summary: See other MD order
--- NOTE | 2017-10-09 15:33 | RADIOLOGY REPORT (SQ) ---
EXAM DESCRIPTION: U/S ABDOMEN LIMITED W/O DOP COMPLETED DATE/TIME: 10/09/2017 3:22 pm REASON FOR STUDY: FLUID ACCUMULATION COMPARISON: None. TECHNIQUE: Dynamic and static grayscale images acquired of the abdomen and recorded on PACS. Additio julia selected color Doppler and spectral images recorded. LIMITATIONS: None. FINDINGS: Limited scanning was done to evaluate fluid accumulation in the abdomen pelvis. Minimal a mount of ascites is present. IMPRESSION: There is minimal ascites. TECHNICAL DOCUMENTATION: JOB ID: [id number] [employer]- All Rights Reserved Reading location - IP/workstation name: [email or web address]
--- NOTE | 2017-10-09 15:36 | RADIOLOGY REPORT (SQ) ---
EXAM DESCRIPTION: CHEST 2 VIEWS COMPLETED DATE/TIME: 10/09/2017 3:24 pm REASON FOR STUDY: sob COMPARISON: 01/25/2016 EXAM PARAMETERS: NUMBER OF VIEWS: two views TECHNIQUE: Digital Frontal and Lateral radiographic views of the chest acquired. RADIATION DOSE: NA LIMITATIONS: none FINDINGS: LUNGS AND PLEURA: There is increased opacification in the medial left base and posteriorly and inferiorly on the lateral view. MEDIASTINUM AND HILAR STRUCTURES: No masses or contour abnormalities. HEART AND VASCULAR STRUCTURES: Cardiomegaly. BONES: No acute findings. HARDWARE: Pacemaker/defibrillator. Sternotomy wires. Graft markers. Injection port on the right. OTHER: No other significant finding. IMPRESSION: Left lower lobe pneumonia. TECHNICAL DOCUMENTATION: JOB ID: [id number] [email or web address]- All Rights Reserved Reading location - IP/workstation name: [email or web address]
[2017-10-10] MEDS: LEVALBUTEROL HCL NEB 1.25 MG/3 ML AMPUL NEB SCH ×2 (02:02→08:04)
[2017-10-10] MEDS: PROCHLORPERAZINE EDISYLATE INJ 10 MG/2 ML VIAL IV PRN ×3 (02:38→12:13)
[2017-10-10] MEDS: MORPHINE SULFATE IR 15 MG TABLET PO PRN (02:38)
[2017-10-10 06:41] LABS: HEMATOCRIT 22.7 % (36.0-47.0); MEAN CORPUSCULAR HEMOGLOBIN 28.6 pg (27.0-33.4); MEAN CORPUSCULAR HGB CONC 33.9 g/dL (32.0-36.0); MEAN CORPUSCULAR VOLUME 85 fl (80-97); PLATELET COUNT 256 10^3/uL (150-450); RED BLOOD COUNT 2.68 10^6/uL (3.72-5.28); RED CELL DISTRIBUTION WIDTH 19.6 % (11.5-14.0); WHITE BLOOD COUNT 6.1 10^3/uL (4.0-10.5)
[2017-10-10 06:44] LABS: HEMOGLOBIN 7.7 g/dL (12.0-15.5)
[2017-10-10 06:53] LABS: ANION GAP 9 (5-19); BLOOD UREA NITROGEN 10 mg/dL (7-20); CALCIUM 7.8 mg/dL (8.4-10.2); CARBON DIOXIDE 22 mmol/L (22-30); CHLORIDE 109 mmol/L (98-107); GLUCOSE 96 mg/dL (75-110); POTASSIUM 3.3 mmol/L (3.6-5.0); SODIUM 140.2 mmol/L (137-145)
[2017-10-10 07:28] LABS: ABSOLUTE LYMPHOCYTES# (MANUAL) 0.7 10^3/uL (0.5-4.7); ABSOLUTE MONOCYTES # (MANUAL) 0.3 10^3/uL (0.1-1.4); ABSOLUTE NEUTROPHILS# (MANUAL) 5.1 10^3/uL (1.7-8.2); BAND NEUTROPHILS % (MANUAL) 1 % (3-5); BASOPHILS % (MANUAL) 0 % (0-2); EOSINOPHILS % (MANUAL) 0 % (0-6); LYMPHOCYTES % (MANUAL) 12 % (13-45); METAMYELOCYTES % (MANUAL) 1 % (0); MONOCYTES % (MANUAL) 5 % (3-13); SEGMENTED NEUTROPHILS % (MAN) 81 % (42-78); TOTAL CELLS COUNTED 100
[2017-10-10 07:29] LABS: ANISOCYTOSIS 2+; HYPOCHROMASIA SLIGHT; PLATELET COMMENT ADEQUATE; TOXIC GRANULATION SLIGHT; TOXIC VACUOLATION PRESENT
[2017-10-10] MEDS ORDERED: POTASSIUM CHLORIDE 10 MEQ CAPSULE.ER PO ONE (08:00)
--- NOTE | 2017-10-10 08:49 | PDOC PROGRESS REPORT ---
Subjective Progress Note for:: 10/10/17 Subjective:: Patient doing better from a nausea standpoint was able to stand for a little bit and walk a few steps yesterday Reason For Visit: HYPOTENSION,SEPSIS,ANEMIA Physical Exam Vital Signs: Temp Pulse Resp BP Pulse Ox 98.0 F 117 H 18 102/54 L 98 10/09/17 23:46 10/10/17 08:04 10/10/17 08:04 10/09/17 23:46 10/10/17 08:04 Intake & Output 10/09/17 10/10/17 10/11/17 06:59 06:59 06:59 Intake Total 2740 1698 Output Total 700 1125 Balance 2040 573 Weight 66.3 kg 66.1 kg General appearance: PRESENT: no acute distress, well-developed, well-nourished Head exam: PRESENT: atraumatic, normocephalic Eye exam: PRESENT: conjunctiva pink, EOMI, PERRLA. ABSENT: scleral icterus Ear exam: PRESENT: normal external ear exam Mouth exam: PRESENT: moist, tongue midline Neck exam: ABSENT: carotid bruit, JVD, lymphadenopathy, thyromegaly Respiratory exam: PRESENT: clear to auscultation zaida. ABSENT: rales, rhonchi, wheezes Cardiovascular exam: PRESENT: RRR. ABSENT: diastolic murmur, rubs, systolic murmur Pulses: PRESENT: normal dorsalis pedis pul Vascular exam: PRESENT: normal capillary refill GI/Abdominal exam: PRESENT: normal bowel sounds, soft. ABSENT: distended, guarding, mass, organolmegaly, rebound, tenderness Rectal exam: PRESENT: deferred Extremities exam: PRESENT: full ROM. ABSENT: calf tenderness, clubbing, pedal edema Neurological exam: PRESENT: alert, awake, oriented to person, oriented to place , oriented to time, oriented to situation, CN II-XII grossly intact. ABSENT: motor sensory deficit Psychiatric exam: PRESENT: appropriate affect, normal mood. ABSENT: homicidal ideation, suicidal ideation Skin exam: PRESENT: dry, intact, warm. ABSENT: cyanosis, rash Results Laboratory Results: 10/10/17 05:57 10/10/17 05:57 10/10/17 10/10/17 05:57 05:57 WBC 6.1 RBC 2.68 L Hgb 7.7 L Hct 22.7 L MCV 85 MCH 28.6 MCHC 33.9 RDW 19.6 H Plt Count 256 Seg Neutrophils % Not Reportable Lymphocytes % Not Reportable Monocytes % Not Reportable Eosinophils % Not Reportable Basophils % Not Reportable Absolute Neutrophils Not Reportable Absolute Lymphocytes Not Reportable Absolute Monocytes Not Reportable Absolute Eosinophils Not Reportable Absolute Basophils Not Reportable Sodium 140.2 Potassium 3.3 L Chloride 109 H Carbon Dioxide 22 Anion Gap 9 BUN 10 Creatinine 0.71 Est GFR ( Amer) > 60 Est GFR (Non-Af Amer) > 60 Glucose 96 Calcium 7.8 L 10/05/17 10/05/17 10/05/17 13:26 13:26 16:54 Creatine Kinase 134 145 H CK-MB (CK-2) 0.93 Troponin I 0.148 NT-Pro-B Natriuret Pep 10/05/17 10/06/17 10/06/17 16:54 01:01 01:01 Creatine Kinase 118 CK-MB (CK-2) 0.39 0.25 Troponin I 0.092 0.064 NT-Pro-B Natriuret Pep 10/06/17 10/07/17 10/08/17 06:05 03:51 04:05 Creatine Kinase CK-MB (CK-2) Troponin I NT-Pro-B Natriuret Pep 52715 H 8380 H 8250 H Impressions: Abdomen/Pelvis CT 10/05/17 09:56 IMPRESSION: Bilateral nephrostomy tubes replacing renal stents. Apparent poorly defined mass just inferior to the right kidney along the inferior vena cava. Increased since previous. No bowel obstruction. Markedly thick-walled bladder. Extensive bony metastases. Interval development of ascites. Chest CT 10/05/17 09:56 IMPRESSION: Bilateral nephrostomy tubes replacing renal stents. Apparent poorly defined mass just inferior to the right kidney along the inferior vena cava. Increased since previous. No bowel obstruction. Markedly thick-walled bladder. Extensive bony metastases. Interval development of ascites. Chest X-Ray 10/09/17 00:00 IMPRESSION: Left lower lobe pneumonia. Abdomen Ultrasound 10/09/17 13:29 IMPRESSION: There is minimal ascites. 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 failure anemia type: pancytopenia, antineoplastic chemotherapy-induced Qualified Code(s): D61.810 - Antineoplastic chemotherapy induced pancytopenia; T45.1X5A - Adverse effect of antineoplastic and immunosuppressive drugs, initial encounter; T45.1X5A - Adverse effect of antineoplastic and immunosuppressive drugs, initial encounter Is this a current diagnosis for this admission?: Yes Plan: Do not plan to transfuse at this point - Time Time Spent with patient: 15-24 minutes - Inpatient Certification Based on my medical assessment, after consideration of the patient's comorbidities, presenting symptoms, or acuity I expect that the services needed warrant INPATIENT care.: Yes
[2017-10-10] MEDS ORDERED: FUROSEMIDE 20 MG TABLET PO SCH (10:00)
[2017-10-10 10:42] VITALS: BP 123/58
[2017-10-10] MEDS: MAGNESIUM OXIDE 400 MG TABLET PO SCH (11:25)
[2017-10-10] MEDS: TIOTROPIUM BROMIDE DPI 5 CAP/KIT (18 MCG/CAP) IH SCH (11:29)
[2017-10-10] MEDS: DOCUSATE SODIUM 100 MG CAPSULE PO SCH (11:30)
[2017-10-10] MEDS: FAMOTIDINE INJ/PF 20 MG/2 ML SDV IV SCH (11:30)
[2017-10-10] MEDS: BUDESONIDE/FORMOTEROL 80-4.5 MCG 60 PUFF/6.9 GM MDI IH SCH (11:30)
[2017-10-10] MEDS: LEVOFLOXACIN 500 MG/D5W RTU 500 MG/100 ML RTUPB IV SCH (11:42)
--- NOTE | 2017-10-10 11:55 | PDOC DISCHARGE SUMMARY ---
General - Admit/Disc Date/PCP Admission Date/Primary Care Provider: 10/05/17 12:50 ELISABETH DORADO MD Discharge Date: 10/10/17 - Discharge Diagnosis (1) Hypotension Is this a current diagnosis for this admission?: Yes Summary: Currently all stable (2) Sepsis Is this a current diagnosis for this admission?: Yes Summary: Currently all resolved (3) Coronary artery disease Is this a current diagnosis for this admission?: Yes Summary: Currently stable (4) Congestive heart failure Is this a current diagnosis for this admission?: Yes Summary: Continues current medication (5) Pacemaker Is this a current diagnosis for this admission?: Yes (6) Hypocalcemia Is this a current diagnosis for this admission?: Yes Summary: Continues to calciums (7) Hypokalemia Is this a current diagnosis for this admission?: Yes Summary: Continues to be a potassiums (8) Chronic kidney disease Is this a current diagnosis for this admission?: Yes (9) Anemia Is this a current diagnosis for this admission?: Yes (10) Intractable vomiting with nausea Is this a current diagnosis for this admission?: Yes Summary: Continues to be a Compazine (11) Malignant neoplasm metastatic from bladder Is this a current diagnosis for this admission?: Yes Summary: And is going for the hospice (12) Elevated troponin Is this a current diagnosis for this admission?: Yes (13) Pleural effusion Is this a current diagnosis for this admission?: Yes Summary: Continues to p.o. antibiotic for underlying some pneumonia - Additional Information Resuscitation Status: Do Not Resuscitate Discharge Diet: As Tolerated Discharge Activity: Activity As Tolerated, Balance Activity w/Rest Prescriptions: Levofloxacin [Levaquin 500 mg Tablet] 500 mg PO DAILY #7 tablet Oxycodone HCl/Acetaminophen [Percocet 5-325 mg Tablet] 1 tab PO Q6HP PRN #30 tablet PRN Reason: Home Medications: Budesonide/Formoterol Fumarate [Symbicort 80-4.5 Mcg Inhaler] 2 puff IH BID Dronabinol [Marinol 2.5 mg Capsule] 2.5 mg PO BID 10/05/17 Ergocalciferol (Vitamin D2) [Drisdol 50,000 unit (1.25MG) Capsule] 50,000 unit PO Q2D 10/05/17 Lorazepam [Ativan 0.5 mg Tablet] 0.5 mg PO Q6HP PRN 10/05/17 Magnesium Oxide [Mag-Ox 400 mg Tablet] 400 mg PO BID 10/05/17 Phosphorus #1 [K-Phos Neutral 250 mg Tablet] 250 mg PO QID 10/05/17 Tiotropium Schneider [Spiriva Respimat] 2 puff IH DAILY 10/05/17 Levofloxacin [Levaquin 500 mg Tablet] 500 mg PO DAILY #7 tablet 10/10/17 Oxycodone HCl/Acetaminophen [Percocet 5-325 mg Tablet] 1 tab PO Q6HP PRN #30 tablet 10/10/17 History of Present Illness History of Present Illness: VIPUL SCHMITZ is a 67 year old female This is a 66-year-old female with a stage IV bladder cancer status post ureteral obstructions status post bilateral nephrostomy tubes placed in the [place] history of the electrolytes imbalance with the history of the hypo- parathyroidism and hypocalcemia history of the coronary artery disease status post CABG and the pacemaker placement and congestive heart failure with currently getting chemotherapy with the metastatic bone disease noticed more nausea or vomiting since last couple of days and feeling very weak and dehydratedAnd in the emergency department patient was hypotensive with the systolic blood pressure was 80 and patients was tachycardic and patient hemoglobin was only 7.3 was running normally 9.5 with the oncologist's office in couple of weeks Patients received IV fluids and IV antibiotic broad-spectrum started due to the elevated white count with possible underlying sepsis Patient's denied any chest pain denied any shortness of the breath Patient's recently see a trailer mechanic in [facility] for the hypocalcemia and also see a Dr. Hudson Patient's is currently a full code Hospital Course Hospital Course: This is a 66-year-old female with multiple medical problem with a stage IV bladder cancer status post nephrostomy tubes came to the emergency department with the hypotension and intractable nausea and vomiting currently on immunotherapy Patient underwent the ICU admissions And treated with the IV antibiotics and underwent for the CT scan of the chest abdomen and pelvis and seen by the cardiology and oncology Also discussed with the ring conductor in the [facility] and suggests no need to offer any different continues to treatments over that andAnd very extended discussion with the family whether this is more progress by the oncology inpatient unable to handle the treatments still very weak suggest a hospice in patients was doing more comfortable and patient's discharge from the hospice care Physical Exam Vital Signs: Temp Pulse Resp BP Pulse Ox 98 F 117 H 18 123/58 L 98 10/10/17 11:47 10/10/17 11:47 10/10/17 11:47 10/10/17 11:47 10/10/17 11:47 Intake & Output 10/09/17 10/10/17 10/11/17 06:59 06:59 06:59 Intake Total 2740 1698 Output Total 700 1125 Balance 2040 573 Weight 66.3 kg 66.1 kg General appearance: PRESENT: no acute distress Head exam: PRESENT: atraumatic, normocephalic Eye exam: PRESENT: conjunctiva pink, EOMI, PERRLA. ABSENT: scleral icterus Ear exam: PRESENT: normal external ear exam Mouth exam: PRESENT: moist, tongue midline Neck exam: PRESENT: full ROM. ABSENT: carotid bruit, JVD, lymphadenopathy, thyromegaly Respiratory exam: PRESENT: clear to auscultation zaida Cardiovascular exam: PRESENT: RRR. ABSENT: diastolic murmur, rubs, systolic murmur Pulses: PRESENT: normal dorsalis pedis pul, +2 pedal pulses bilateral Vascular exam: PRESENT: normal capillary refill GI/Abdominal exam: PRESENT: normal bowel sounds, soft. ABSENT: distended, guarding, mass, organolmegaly, rebound, tenderness Rectal exam: PRESENT: deferred Extremities exam: ABSENT: pedal edema Neurological exam: PRESENT: alert, awake, oriented to person, oriented to place , oriented to time, oriented to situation, CN II-XII grossly intact. ABSENT: motor sensory deficit Psychiatric exam: PRESENT: appropriate affect, normal mood. ABSENT: homicidal ideation, suicidal ideation Skin exam: PRESENT: dry, intact, warm. ABSENT: cyanosis, rash Results Laboratory Results: 10/10/17 05:57 10/10/17 05:57 10/10/17 10/10/17 05:57 05:57 WBC 6.1 RBC 2.68 L Hgb 7.7 L Hct 22.7 L MCV 85 MCH 28.6 MCHC 33.9 RDW 19.6 H Plt Count 256 Seg Neutrophils % Not Reportable Lymphocytes % Not Reportable Monocytes % Not Reportable Eosinophils % Not Reportable Basophils % Not Reportable Absolute Neutrophils Not Reportable Absolute Lymphocytes Not Reportable Absolute Monocytes Not Reportable Absolute Eosinophils Not Reportable Absolute Basophils Not Reportable Sodium 140.2 Potassium 3.3 L Chloride 109 H Carbon Dioxide 22 Anion Gap 9 BUN 10 Creatinine 0.71 Est GFR ( Amer) > 60 Est GFR (Non-Af Amer) > 60 Glucose 96 Calcium 7.8 L 10/05/17 10/05/17 10/05/17 13:26 13:26 16:54 Creatine Kinase 134 145 H CK-MB (CK-2) 0.93 Troponin I 0.148 NT-Pro-B Natriuret Pep 10/05/17 10/06/17 10/06/17 16:54 01:01 01:01 Creatine Kinase 118 CK-MB (CK-2) 0.39 0.25 Troponin I 0.092 0.064 NT-Pro-B Natriuret Pep 10/06/17 10/07/17 10/08/17 06:05 03:51 04:05 Creatine Kinase CK-MB (CK-2) Troponin I NT-Pro-B Natriuret Pep 60354 H 8380 H 8250 H Impressions: Abdomen/Pelvis CT 10/05/17 09:56 IMPRESSION: Bilateral nephrostomy tubes replacing renal stents. Apparent poorly defined mass just inferior to the right kidney along the inferior vena cava. Increased since previous. No bowel obstruction. Markedly thick-walled bladder. Extensive bony metastases. Interval development of ascites. Chest CT 10/05/17 09:56 IMPRESSION: Bilateral nephrostomy tubes replacing renal stents. Apparent poorly defined mass just inferior to the right kidney along the inferior vena cava. Increased since previous. No bowel obstruction. Markedly thick-walled bladder. Extensive bony metastases. Interval development of ascites. Chest X-Ray 10/09/17 00:00 IMPRESSION: Left lower lobe pneumonia. Abdomen Ultrasound 10/09/17 13:29 IMPRESSION: There is minimal ascites. Qualifiers - * PATIENT BEING DISCHARGED WITH ANY OF THE FOLLOWING DIAGNOSIS: No VTE patient discharged on overlapping Therapy?: Yes Plan Time Spent: Greater than 30 Minutes - Patient is discharged home with the hospice care
== END 2017-10-10 12:52 | disposition hospice, home (50) | DRG 871 ==
LOC: ER 07:46 → EH 12:50 → ICU 15:33 → 4S 10-07 20:40
PROVIDERS: ADMIT Family Medicine; ATTEND Family Medicine
PROC: 30233N1 Transfusion of Nonautologous Red Blood Cells into Peripheral Vein, Percutaneous Approach (ICD-10-PCS; principal; 2017-10-05)
DX: A41.9 Sepsis, unspecified organism (principal); I21.4 Non-ST elevation (NSTEMI) myocardial infarction; D61.1 Drug-induced aplastic anemia; D61.810 Antineoplastic chemotherapy induced pancytopenia; I50.43 Acute on chronic combined systolic (congestive) and diastolic (congestive) heart failure; Z66 Do not resuscitate; Z51.5 Encounter for palliative care; C79.51 Secondary malignant neoplasm of bone; I13.0 Hypertensive heart and chronic kidney disease with heart failure and stage 1 through stage 4 chronic kidney disease, or unspecified chronic kidney disease; R18.8 Other ascites; C67.9 Malignant neoplasm of bladder, unspecified; N18.3 Chronic kidney disease, stage 3 (moderate); E83.51 Hypocalcemia; I25.10 Atherosclerotic heart disease of native coronary artery without angina pectoris; E86.0 Dehydration; J44.9 Chronic obstructive pulmonary disease, unspecified; N13.9 Obstructive and reflux uropathy, unspecified; N28.89 Other specified disorders of kidney and ureter; Z60.2 Problems related to living alone; Z96.0 Presence of urogenital implants; Z79.82 Long term (current) use of aspirin; Z79.899 Other long term (current) drug therapy
CPT/HCPCS: 36415; 36430; 36591; 71045; 71046; 71260; 74177; 76705; 80048; 80053; 81001; 82272; 82550; 82553; 82803; 83605; 83735; 83880; 84484; 85025; 86850; 86900; 86901; 86920; 87040; 87086; 93005; 93010; 93306; 94640; 94660; 96361; 96374; 96375; 99291; J0780; J1100; J1160; J1200; J1956; J2060; J2543; J3010; J3480; J3490; J7030; J7060; P9016; S0028